=== PATIENT | female | born 1930 | race Caucasian/White ===

== ENCOUNTER → 2017-06-07 | Outpatient (CLI) | payer MEDICARE ==
[2017-06-07 13:02] LABS: Blood Urea Nitrogen 27 mg/dL (7-17)
--- NOTE | 2017-06-07 13:04 | XR ---
EXAMINATION TYPE: XR chest 2V DATE OF EXAM: 06/07/2017 COMPARISON: NONE HISTORY: Diverticulitis per order. History of hiatal hernia surgery. TECHNIQUE: Frontal and lateral views of the chest are obtained. FINDINGS: There is chronic parenchymal change without suspicious focal air space opacity, pleural ef fusion, or pneumothorax seen. The cardiac silhouette size is upper limits of normal with atheroscler otic aorta. The osseous structures are demineralized. S-shaped scoliosis is present. Surgical clips near gastroesophageal junction are present. IMPRESSION: Chronic parenchymal changes without acute pulmonary process.
--- NOTE | 2017-06-07 15:26 | CT ---
EXAMINATION TYPE: CT abdomen pelvis w con DATE OF EXAM: 06/07/2017 COMPARISON: NONE INDICATION: Productive cough, mid abdominal pain. DLP: 1260 mGycm, Automated exposure control for dose reduction was used. CONTRAST: 80 mL of Visipaque 320. Study performed with Oral Contrast TECHNIQUE: Axial images were obtained from above the diaphragm to the pubic rami in the axial plane a t 5 mm thick sections. Reconstructed images are reviewed on the computer in the coronal plane. FINDINGS: Limited CT sections are obtained the lung bases. The lung bases are clear. Some minimal pulmonary f ibrosis appears to be within the dependent portions of the lungs. CT ABDOMEN: Moderate size hiatal hernia is present. Appears to be a prior Ahmet fundoplication. Liver: Normal Spleen: Normal Pancreas: Normal Adrenal glands: The adrenal glands are normal. Gallbladder: Normal Kidneys: No masses are evident. No hydronephrosis is present. No cysts are present. Delayed images were obtained through the kidneys, which remain unremarkable. Aorta: Vascular calcification is within the aorta. Inferior vena cava: Normal. CT PELVIS: Loops of bowel within the abdomen and pelvis are normal. There are loops of bowel which are incom pletely distended or lack oral contrast limiting their evaluation. Appendix: Not identified. No suspicious inflammatory changes are evident. Urinary bladder: Normal. Genitourinary structures: Adnexa are imaged. The uterus is visualized is normal. Osseous structures: No suspicious lytic or sclerotic lesions. Facet changes are within the lumbar spi ne. IMPRESSIONS: 1. No suspicious acute changes CT abdomen pelvis. 2. Prior gastric surgery, likely Ahmet fundoplication. 3. Scoliosis with degenerative disc changes.
== END | disposition home or self-care (01) ==
LOC: RADCTMAIN 12:05
PROVIDERS: ATTEND Surgery Plastic and Reconstructive Surgery
DX: J98.4 Other disorders of lung (principal); R13.10 Dysphagia, unspecified; Z98.84 Bariatric surgery status
CPT/HCPCS: 82565; 84520; 71046; 74177; 36415; Q9967

== ENCOUNTER 2017-06-13 08:12 | Day surgery (SDC) | payer MEDICARE ==
[2017-06-08 16:16] VITALS: BMI 28.2
--- NOTE | 2017-06-13 07:40 | P.GSHP ---
History of Present Illness H&P Date: 06/13/17 CHIEF COMPLAINT: GERD HISTORY OF PRESENT ILLNESS: The patient is a 86-year-old female who presents reports gastroesophageal reflux disease. Upper endoscopy was offered for further evaluation and management. PAST MEDICAL HISTORY: Please see list. PAST SURGICAL HISTORY: Please see list. MEDICATIONS: Please see list. ALLERGIES: Please see list. SOCIAL HISTORY: No illicit drug use FAMILY HISTORY: No reports of Crohn disease or ulcerative colitis. REVIEW OF ORGAN SYSTEMS: CONSTITUTIONAL: No reports of fevers or chills. GI: Denies any blood in stools or constipation. PHYSICAL EXAM: VITAL SIGNS: Stable GENERAL: Well-developed and pleasant in no acute distress. HEENT: No scleral icterus. Extraocular movements grossly intact. Moist buccal mucosa. NECK: Supple without lymphadenopathy. CHEST: Unlabored respirations. Equal bilateral excursions. CARDIOVASCULAR: Regular rate and rhythm. Distal 2+ pulses. ABDOMEN: Soft, nondistended. MUSCULOSKELETAL: No clubbing, cyanosis, or edema. ASSESSMENT: 1. Gastroesophageal reflux disease PLAN: 1. 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 [place], hx vertigo, History of Any Multi-Drug Resistant Organisms: None Reported Past Surgical History: Section, Tubal Ligation Additional Past Surgical History / Comment(s): hiatal hernia repair, grisel cataract sx, EGD Past Anesthesia/Blood Transfusion Reactions: No Reported Reaction Smoking Status: Never smoker - Past Family History Mother Family Medical History: Cancer Medications and Allergies Home Medications Medication Instructions Recorded Confirmed Type Acetaminophen [Tylenol Extra 500 mg PO DAILY 06/08/17 06/08/17 History Strength] Aspirin [Adult Low Dose Aspirin EC] 81 mg PO DAILY 06/08/17 06/08/17 History Atorvastatin [Lipitor] 10 mg PO DAILY 06/08/17 06/08/17 History B Complex & C No.20/Folic Acid 1 mg PO DAILY 06/08/17 06/08/17 History [Nephrocaps Softgel] Captopril [Capoten] 100 mg PO AC-BID 06/08/17 06/08/17 History Colon Health 1 tab PO DAILY 06/08/17 History Donepezil HCl [Aricept] 5 mg PO DAILY 06/08/17 06/08/17 History Etodolac [Lodine] 500 mg PO DAILY 06/08/17 06/08/17 History Famotidine [Pepcid] 20 mg PO BID 06/08/17 06/08/17 History Krill Oil 500 mg PO DAILY 06/08/17 06/08/17 History Loratadine [Claritin] 10 mg PO DAILY 06/08/17 06/08/17 History Meclizine [Antivert] 25 mg PO DAILY 06/08/17 06/08/17 History Milk Thistle 175 mg PO DAILY 06/08/17 06/08/17 History Multivitamins, Thera [Multivitamin 1 tab PO DAILY 06/08/17 06/08/17 History (formulary)] Omeprazole [PriLOSEC] 40 mg PO QAM 06/08/17 06/08/17 History Sertraline [Zoloft] 100 mg PO DAILY 06/08/17 06/08/17 History amLODIPine [Norvasc] 10 mg PO DAILY 06/08/17 06/08/17 History levETIRAcetam [Keppra] 500 mg PO Q12HR 06/08/17 06/08/17 History Allergies Allergy/AdvReac Type Severity Reaction Status Date / Time clindamycin Allergy dizzyness Verified 06/08/17 16:05 Penicillins Allergy Unknown Verified 06/08/17 16:05 procaine [From Novocain] Allergy dizzyness Verified 06/08/17 16:05 that lasted days Sulfa (Sulfonamide Allergy Unknown Verified 06/08/17 16:05 Antibiotics)
[~2017-06-13 08:12] MED LIST: LACTATED RINGERS 1,000 ML IV SCH
[2017-06-13] MEDS ORDERED: LACTATED RINGERS 1,000 ML IV ONE (08:27)
[2017-06-13 08:47] VITALS: RESP 18; TEMP 98
[2017-06-13] MEDS ORDERED: PROPOFOL 10 MG/ML 20 ML VIAL IV ONE (09:01)
--- NOTE | 2017-06-13 09:15 | P.PCN ---
Date of Procedure: 06/13/17 Description of Procedure: PREOPERATIVE DIAGNOSIS: Gastroesophageal reflux disease. History of fundoplasty. POSTOPERATIVE DIAGNOSIS: Gastroesophageal reflux disease. History of fundoplasty. Gastritis. Gastroesophageal reflux disease. Diaphragmatic hiatal hernia without obstruction, recurrent and incarcerated. OPERATION: Esophagogastroduodenoscopy with biopsies along antrum. SURGEON: Alisa Rosario MD ANESTHESIA: MAC. INDICATIONS: The patient is a 86-year-old female who presents with a history of reflux disease. Benefits and risks of the procedure were described. Informed consent was obtained. DESCRIPTION: The patient was brought into the endoscopy suite and laid in the left lateral decubitus position. An Olympus gastroscope was passed along the posterior oropharynx down to the distal esophagus where the squamocolumnar junction was encountered at 30 cm from the incisors. The stomach was entered and no bile reflux was found. Additional findings are listed below. Biopsies with cold forceps were obtained of the antrum. The first through third portion of the duodenum was examined and unremarkable. Retroflexion of the scope confirmed Hill grade 4 lower esophageal valve as previous transendoscopic fundoplasty sutures were identified. The squamocolumnar junction demostrated LA grade B erosive esophagitis. The stomach was desufflated. The patient tolerated the procedure well. FINDINGS: Squamocolumnar junction 30 cm from the incisors. Diaphragmatic hiatus at 40 cm. Hiatal hernia 10 cm. Hill grade 4 lower esophageal valve. LA grade B erosive esophagitis. No active duodenitis. Diffuse gastritis. RECOMMENDATIONS: Continue medical therapy. Further recommendations pending results of pathology report. Upper endoscopy as needed. Will benefit from antireflux surgical procedure Plan - Discharge Summary New Discharge Prescriptions: No Action Multivitamins, Thera [Multivitamin (formulary)] 1 tab PO DAILY Famotidine [Pepcid] 20 mg PO BID Atorvastatin [Lipitor] 10 mg PO DAILY amLODIPine [Norvasc] 10 mg PO DAILY Sertraline [Zoloft] 100 mg PO DAILY Captopril [Capoten] 100 mg PO AC-BID levETIRAcetam [Keppra] 500 mg PO Q12HR Omeprazole [PriLOSEC] 40 mg PO QAM Milk Thistle 175 mg PO DAILY Meclizine [Antivert] 25 mg PO DAILY Loratadine [Claritin] 10 mg PO DAILY Krill Oil 500 mg PO DAILY Etodolac [Lodine] 500 mg PO DAILY Donepezil HCl [Aricept] 5 mg PO DAILY Colon Health 1 tab PO DAILY B Complex & C No.20/Folic Acid [Nephrocaps Softgel] 1 mg PO DAILY Aspirin [Adult Low Dose Aspirin EC] 81 mg PO DAILY Acetaminophen [Tylenol Extra Strength] 500 mg PO DAILY Discharge Medication List Acetaminophen [Tylenol Extra Strength] 500 mg PO DAILY 06/08/17 [History] Aspirin [Adult Low Dose Aspirin EC] 81 mg PO DAILY 06/08/17 [History] Atorvastatin [Lipitor] 10 mg PO DAILY 06/08/17 [History] B Complex & C No.20/Folic Acid [Nephrocaps Softgel] 1 mg PO DAILY 06/08/17 [ History] Captopril [Capoten] 100 mg PO AC-BID 06/08/17 [History] Colon Health 1 tab PO DAILY 06/08/17 [History] Donepezil HCl [Aricept] 5 mg PO DAILY 06/08/17 [History] Etodolac [Lodine] 500 mg PO DAILY 06/08/17 [History] Famotidine [Pepcid] 20 mg PO BID 06/08/17 [History] Krill Oil 500 mg PO DAILY 06/08/17 [History] Loratadine [Claritin] 10 mg PO DAILY 06/08/17 [History] Meclizine [Antivert] 25 mg PO DAILY 06/08/17 [History] Milk Thistle 175 mg PO DAILY 06/08/17 [History] Multivitamins, Thera [Multivitamin (formulary)] 1 tab PO DAILY 06/08/17 [History ] Omeprazole [PriLOSEC] 40 mg PO QAM 06/08/17 [History] Sertraline [Zoloft] 100 mg PO DAILY 06/08/17 [History] amLODIPine [Norvasc] 10 mg PO DAILY 06/08/17 [History] levETIRAcetam [Keppra] 500 mg PO Q12HR 06/08/17 [History]
[2017-06-13 09:27] VITALS: BP 128/74; PULSE 74
== END 2017-06-13 10:03 | disposition home or self-care (01) ==
LOC: ORWHC2ENDO 08:12
PROVIDERS: ATTEND Surgery Plastic and Reconstructive Surgery
DX: K29.50 Unspecified chronic gastritis without bleeding (principal); K21.0 Gastro-esophageal reflux disease with esophagitis; K44.9 Diaphragmatic hernia without obstruction or gangrene; Z98.890 Other specified postprocedural states; I69.311 Memory deficit following cerebral infarction; I10 Essential (primary) hypertension; E78.5 Hyperlipidemia, unspecified; F32.9 Major depressive disorder, single episode, unspecified; F03.90 Unspecified dementia, unspecified severity, without behavioral disturbance, psychotic disturbance, mood disturbance, and anxiety; Z85.828 Personal history of other malignant neoplasm of skin; I25.2 Old myocardial infarction; Z98.51 Tubal ligation status; Z79.82 Long term (current) use of aspirin; Z79.899 Other long term (current) drug therapy; Z88.4 Allergy status to anesthetic agent; Z88.1 Allergy status to other antibiotic agents; Z88.0 Allergy status to penicillin; Z88.2 Allergy status to sulfonamides
CPT/HCPCS: 88305; 43239; J2704

== ENCOUNTER → 2017-07-24 | Outpatient (CLI) | payer MEDICARE ==
[2017-07-24 16:06] LABS: Basophils % (A) 0 %; Eosinophils # (A) 0.2 k/uL (0-0.7); Eosinophils % (A) 2 %; HCT 41.2 % (34.0-46.0); HGB 12.8 gm/dL (11.4-16.0); Lymphocytes # (A) 1.6 k/uL (1.0-4.8); Lymphocytes % (A) 19 %; MCH 29.2 pg (25.0-35.0); MCHC 31.1 g/dL (31.0-37.0); MCV 93.7 fL (80.0-100.0); Mean Platelet Volume 6.9; Monocytes # (A) 0.5 k/uL (0-1.0); Monocytes % (A) 6 %; Neutrophils # (A) 5.7 k/uL (1.3-7.7); Neutrophils % (A) 71 %; Platelet Count 291 k/uL (150-450); WBC 8.1 k/uL (3.8-10.6)
[2017-07-24 16:20] LABS: Albumin 4.3 g/dL (3.5-5.0); Potassium 4.6 mmol/L (3.5-5.1); Total Bilirubin 0.4 mg/dL (0.2-1.3); Total Protein 7.5 g/dL (6.3-8.2)
== END | disposition home or self-care (01) ==
LOC: LABPAT 15:33
PROVIDERS: ATTEND Surgery Plastic and Reconstructive Surgery
DX: Z01.812 Encounter for preprocedural laboratory examination (principal); K44.0 Diaphragmatic hernia with obstruction, without gangrene
CPT/HCPCS: 36415; 80053; 85025

== ENCOUNTER 2017-07-27 06:06 | Inpatient (IN) | payer MEDICARE ==
[2017-07-19 10:52] VITALS: BMI 26.9
--- NOTE | 2017-07-26 17:27 | P.GSHP ---
History of Present Illness H&P Date: 07/27/17 CHIEF COMPLAINT: History of chronic abdominal pain. HISTORY OF PRESENT ILLNESS: Va Morrison is a 86-year-old female who comes in with recurrent diaphragmatic hiatal hernia including intractable nausea and vomiting, and epigastric abdominal pain. She previously had a thoracic approach hiatal hernia repair, now with complete recurrence. She has chronic dysphagia to foods. She had completed an upper endoscopy including a CT scan. She now presents for further evaluation and management. Her daughter is at bedside, who reports that since her last visit a month ago her condition is declining. Separately, she had just completed seeing the patrol supervisor. PAST MEDICAL HISTORY: Please see list. PAST SURGICAL HISTORY: Please see list. MEDICATIONS: Please see list. ALLERGIES: Please see list. SOCIAL HISTORY: No illicit drug use FAMILY HISTORY: No reports of Crohn disease or ulcerative colitis. REVIEW OF ORGAN SYSTEMS: Neurological: Previous history of stroke. Baseline dementia. Has seizure disorder. CONSTITUTIONAL: No fevers or chills. HEENT: Denies any trouble with vision, hearing or nosebleeds. Has difficulty swallowing. Has vertigo LYMPHATIC: The patient denies any lumps and bumps around the neck. ENDOCRINE: Denies any thyroid disorders. Denies any blood sugar glucose intolerance. RESPIRATORY: Denies pneumonia. Denies any troubles with breathing or dyspnea on exertion. CARDIOVASCULAR: Denies any chest pain, palpitations, or recent heart attacks. GASTROINTESTINAL: Denies fatty food intolerance. Denies change in bowel habits and gas bloat. Has GERD. GENITOURINARY: Denies any blood in urine or increased urinary frequency. MUSCULOSKELETAL: Denies any back pain, stiffness or joint arthritis. PSYCHIATRIC: Denies any depression or suicidal ideation. Has dementia. HEMATOLOGIC: Denies any abnormal bleeding or bruising. BREASTS: Denies any breast lumps, pain or nipple discharge. SKIN: No current skin cancer. No rash. PHYSICAL EXAM: Patient is an 86-year-old female. GENERAL: Well developed and in no acute distress. Pleasant. HEENT: No sclera icterus. Extraocular movements grossly intact. Moist buccal mucosa. Head is atraumatic, normocephalic. Hears conversational speech. No nasal drainage. NECK: Supple without lymphadenopathy. No JV distention. CHEST: Non-labored respirations and equal bilateral excursions. CARDIOVASCULAR: Regular rate and rhythm. Palpable 2+ radial pulses. ABDOMEN: Soft. Nondistended. Tenderness along the left lower quadrant, including epigastrium. MUSCULOSKELETAL: No clubbing, cyanosis or edema. NEUROLOGIC: No focal or lateralizing signs. PSYCH: Appropriate affect. Alert and oriented to person, place and time. SKIN: Well perfused. Good skin turgor. STUDIES: CT of the abdomen/pelvis was reviewed in detail with the patient and her family , which demonstrated recurrent large diaphragmatic hiatal hernia incarcerated along the mediastinum. Separately, a umbilical hernia was also identified including left inguinal lipoma. Moderate stool burden was identified. This is my own personal interpretation, as her studies were reviewed in detail. Questionable gallstones were identified as well. Upper endoscopy was also reviewed and was consistent with a 10 cm recurrent diaphragmatic hiatal hernia Hill grade 4 lower esophageal valve. ASSESSMENT: 1. Recurrent incarcerated diaphragmatic hiatal hernia. 2. Intractable nausea and vomiting. 3. Dysphagia. 4. Chronic abdominal pain. 5. Left quadrant abdominal pain. 6. Chronic constipation. PLAN: 1. She completed a manometry. 2. As this is a revision, including take down from a previous thoracotomy, risks of esophageal lengthening, gastrostomy, and gastrectomy were also reviewed in detail along side with the patient and her daughter. 3. Easily, this procedure may take 6+ hours, and as a result a medical consultation as well as complete medical and cardiac clearance were done. 4. Pre-operative Calos diet, which can be started right now, was written and given to her to help with her overall symptoms with dysphagia and vomiting. 5. Inpatient hospitalization more than 2 nights. 6. DVT prophylaxis 7. Antibiotic prophylaxis 8. 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 [place], hx vertigo,scoliosis History of Any Multi-Drug Resistant Organisms: None Reported Past Surgical History: Section, Tubal Ligation Additional Past Surgical History / Comment(s): hiatal hernia repair, grisel cataract sx, EGD,inguinal hernia repair Past Anesthesia/Blood Transfusion Reactions: No Reported Reaction Additional Past Anesthesia/Blood Transfusion Reaction / Comment(s): no hx blood transfusion Past Psychological History: Anxiety, Depression Additional Psychological History / Comment(s): dementia Smoking Status: Never smoker Past Alcohol Use History: None Reported Past Drug Use History: None Reported - Past Family History Mother Family Medical History: Cancer Medications and Allergies Home Medications Medication Instructions Recorded Confirmed Type Acetaminophen [Tylenol Extra 500 mg PO BID 06/08/17 07/19/17 History Strength] Aspirin [Adult Low Dose Aspirin EC] 81 mg PO DAILY 06/08/17 07/19/17 History Atorvastatin [Lipitor] 10 mg PO DAILY 06/08/17 07/19/17 History B Complex & C No.20/Folic Acid 1 mg PO DAILY 06/08/17 07/19/17 History [Nephrocaps Softgel] Captopril [Capoten] 50 mg PO AC-BID 06/08/17 07/19/17 History Colon Health 1 tab PO DAILY 06/08/17 07/19/17 History Donepezil HCl [Aricept] 5 mg PO DAILY 06/08/17 07/19/17 History Etodolac [Lodine] 500 mg PO DAILY 06/08/17 07/19/17 History Famotidine [Pepcid] 20 mg PO 1600,2100 06/08/17 07/19/17 History Krill Oil 500 mg PO DAILY 06/08/17 07/19/17 History Loratadine [Claritin] 10 mg PO DAILY 06/08/17 07/19/17 History Meclizine [Antivert] 25 mg PO DAILY 06/08/17 07/19/17 History Milk Thistle 175 mg PO DAILY 06/08/17 07/19/17 History Multivitamins, Thera [Multivitamin 1 tab PO DAILY 06/08/17 07/19/17 History (formulary)] Omeprazole [PriLOSEC] 40 mg PO QAM 06/08/17 07/19/17 History Sertraline [Zoloft] 100 mg PO QAM 06/08/17 07/19/17 History amLODIPine [Norvasc] 10 mg PO QAM 06/08/17 07/19/17 History levETIRAcetam [Keppra] 500 mg PO Q12HR 06/08/17 07/19/17 History Allergies Allergy/AdvReac Type Severity Reaction Status Date / Time clindamycin Allergy SOB,dizzyne Verified 07/19/17 10:26 ss Penicillins Allergy SOB Verified 07/19/17 10:26 procaine [From Novocain] Allergy SOB,dizzyness Verified 07/19/17 10:26 that lasted days Sulfa (Sulfonamide Allergy SOB Verified 07/19/17 10:26 Antibiotics)
[~2017-07-27 06:06] MED LIST changes: +ACETAMINOPHEN IVPB ONE; +DEXAMETHASONE SOD PHOSPHATE 10 MG/ML 1 ML VIAL IV ONE; +HEPARIN SODIUM,PORCINE 5,000 UNIT/ML 1 ML VIAL SQ ONE; -LACTATED RINGERS 1,000 ML IV SCH; +MIDAZOLAM 2 MG/2 ML VIAL IV PRN; +ONDANSETRON 4 MG/2 ML VIAL IVP ONE; +ceFAZolin 2 GM in SODIUM CHLORIDE 0.9% 100 ML IVPB ONE; +ceFAZolin IN SWFI 2 GM/20 ML SYRINGE IVP ONE; +metroNIDAZOLE-NS PMX 500 MG in SALINE 1 100ML.BAG IVPB ONE
[2017-07-27] MEDS: LACTATED RINGERS 1,000 ML IV SCH ×2 (07:22→07:25)
[2017-07-27] MEDS ORDERED: LIDOCAINE 1% 20 ML VIAL (10MG/ML) FOR IV START INTRADERMA ONE (07:22)
[2017-07-27] MEDS ORDERED: BUPIVACAINE (PF) 0.25% 30 ML VIAL SQ ONE (07:42)
[2017-07-27] MEDS ORDERED: LACTATED RINGERS 1,000 ML IV ONE (11:28)
[2017-07-27] MEDS ORDERED: ONDANSETRON 4 MG/2 ML VIAL IVP PRN (14:28)
[2017-07-27] MEDS ORDERED: NALOXONE 0.4 MG/ML 1 ML VIAL IV PRN (14:28)
[2017-07-27] MEDS ORDERED: diphenhydrAMINE 50 MG/ML 1 ML VIAL IVP PRN (14:28)
[2017-07-27] MEDS ORDERED: ACETAMINOPHEN IVPB ONE (14:28)
[2017-07-27] MEDS: fentaNYL (PF) 50 MCG/ML 2 ML AMP IV PRN ×3 (14:33→15:24)
--- NOTE | 2017-07-27 15:23 | P.PCN ---
Date of Procedure: 07/27/17 Preoperative Diagnosis: Recurrent paraesophageal hiatal hernia, dysphagia, epigastric pain, intractable nausea and vomiting, weakness, anemia Postoperative Diagnosis: Same, recurrent incarcerated paraesophageal diaphragmatic hiatal hernia 8 x 4 cm , Reyna's esophagus, gastric diverticulum along gastric cardia Procedure(s) Performed: 1. Robotic-assisted takedown of incarcerated recurrent paraesophageal hiatal hernia along the mediastinum using robotic stapler green load 2. Robotic-assisted extensive lysis of adhesions over 4 hours perigastric adhesions including mediastinal adhesions 3. Robotic-assisted recurrent incarcerated midline diaphragmatic hiatal hernia 8 x 5 centimeters using [place] Biopatch A 8 x 8 cm mesh and pledgeted repair 4. Intraoperative esophagogastroduodenoscopy Anesthesia: GETA, local Surgeon: Alisa Rosario Estimated Blood Loss (ml): 100 Pathology: none sent Condition: stable Disposition: floor Operative Findings: 1. Recurrent incarcerated paraesophageal midline diaphragmatic hiatal hernia extending into the mid mediastinum
[2017-07-27] MEDS: ALBUTEROL NEBULIZED 2.5 MG/3 ML INHALATION SCH ×2 (15:55→20:20)
[2017-07-27] MEDS: ceFAZolin 1,000 MG in DEXTROSE/WATER 1 50ML.BAG IVPB SCH (17:38)
[2017-07-27] MEDS: SIMETHICONE 40 MG/0.6 ML DROPS 2,000 MG/30 ML BOTTLE PO SCH (18:13)
[2017-07-27] MEDS: HYOSCYAMINE ORAL DROPS 1.875 MG/15 ML BOTTLE PO SCH (18:14)
[2017-07-27] MEDS: MORPHINE SULFATE/PF 10MG/10ML VL IVP PRN (18:19)
[2017-07-27] MEDS: CAPTOPRIL 50 MG TAB PO SCH (18:26)
[2017-07-27] MEDS: DEXAMETHASONE SOD PHOSPHATE 4 MG/ML 1 ML VIAL IV SCH (19:29)
[2017-07-27] MEDS: levETIRAcetam 500 MG TAB PO SCH (20:37)
[2017-07-27] MEDS: 0.9% NACL WITH KCL 20 MEQ/L 1,000 ML IV SCH (20:38)
--- NOTE | 2017-07-27 21:17 | P.OP ---
Date of Procedure: 07/27/17 Description of Procedure: Date of Procedure: 07/27/17 DESCRIPTION OF PROCEDURE(S): SURGEON: CLAUDIA GORE MD SUPERVISOR SOLDERING: 1. Wendy Alas PREOPERATIVE DIAGNOSES: 1. Gastroesophageal reflux disease. 2. Paraesophageal hiatal hernia, midline, recurrent 3. History of previous Calos fundoplasty 4. Seizure disorder 5. Alzheimer's dementia 6. Depression 7. Vertigo 8. Dysphagia 9. Ineffective esophageal motility 10. Epigastric abdominal pain 11. Intractable nausea and vomiting 12. Weakness 13. Iron deficiency anemia 14. Hyperlipidemia 15. Diffuse osteoarthritis 16. Hypertensive heart disease POSTOPERATIVE DIAGNOSES: 1. Gastroesophageal reflux disease. 2. Paraesophageal incarcerated hiatal hernia, midline, recurrent, 8 x 5 cm 3. History of previous Calos fundoplasty 4. Seizure disorder 5. Alzheimer's dementia 6. Depression 7. Vertigo 8. Dysphagia 9. Ineffective esophageal motility 10. Epigastric abdominal pain 11. Intractable nausea and vomiting 12. Weakness 13. Iron deficiency anemia 14. Hyperlipidemia 15. Diffuse osteoarthritis 16. Hypertensive heart disease 17. 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 Peritoneal adhesions left lower quadrant from previous inguinal hernia repair OPERATION: 1. Robotic-assisted da Elisabeth Xi laparoscopic takedown of Calos fundoplasty from incarcerated recurrent paraesophageal hiatal hernia along the mediastinum using robotic stapler green load 2. Robotic-assisted da Elisabeth Xi laparoscopic extensive lysis of adhesions over 4 hours for perigastric adhesions including mediastinal adhesions 3. Robotic-assisted da Elisabeth Xi laparoscopic reduction and repair of recurrent incarcerated midline paraesophageal hiatal hernia, 8 x 5 cm, with [place] Bi[employer]atch A 8 x 8 cm and pledgeted repair 4. Intraoperative esophagogastroduodenoscopy ANESTHESIA: General with local anesthetic. ESTIMATED BLOOD LOSS: 100 mL SPECIMENS REMOVED: None. COMPLICATIONS: None. Condition: stable Disposition: floor FINDINGS: 1. Thoracic length 16.5 cm. 2. Slipped Calos fundoplasty 3. Incarcerated upper pole of the stomach deep into mediastinum from previous thoracic approach hiatal hernia. 4. Paraesophageal incarcerated recurrent diaphragmatic hiatal hernia 8 cm axial length by 5 cm width, with moderate dissection into the mediastinum. 5. [place] Bi[employer]atch A onlay mesh placed with pledgeted repair along the right and left sylvain including anterior hiatal hernia repair reinforcement 6. Fundoplasty taken down using 45 mm green load 7. Gastric diverticulum identified along cardiac 8. Squamocolumnar junction obliterated to 30 cm from over 3 cm segment of Reyna's esophagus 9. Negative leak test 10. Retained large hiatal hernia sac identified from index operation from thoracic approach hiatal herna incised and resected to prevent recurrence. 11. More than 3 cm intra-abdominal esophageal length INDICATIONS: The patient is a 86-year-old female who presents with epigastric abdominal pain including gastroesophageal reflux and a symptomatic recurrent diaphragmatic hiatal hernia performed over 5 years ago at [facility] via a left thoracotomy approach. Preoperative workup including upper endoscopy demonstrated recurrent hiatal hernia and slipped Calos fundoplasty. She completed an esophageal manometry demonstrating reflux. Given the severity of her symptoms , particularly of her symptomatic diaphragmatic hiatal hernia, she had elected for surgical intervention. Benefits and risks including bleeding, infection, recurrence, dysphagia, injury to the lung, injury to the esophagus, leaks, need for further surgery was described at length. Informed consent was obtained. DESCRIPTION: The patient was brought into the operating room and placed in supine position. Preoperatively she had received heparin subcutaneously for DVT prophylaxis. After general induction, the abdomen was prepped and draped in standard sterile fashion. A Sandhu catheter was placed. Ioban draping was placed along the abdomen. A timeout protocol was confirmed with the surgical team, for which the patient's name, procedure to be performed including DVT prophylaxis with bilateral SCDs, and preoperative antibiotics were also confirmed. Robotic da Elisabeth Xi system was prepped and primed. At 12 cm from the xiphoid to just below the umbilicus, proposed port sites were marked with indelible marker along the left axillary line, left mid-clavicular line with each ports were marked 10 cm from each other. A 5 mm 0 degrees laparoscopic trocar entry was performed along the left upper quadrant. The abdomen was insufflated to 15 mmHg pressure he tolerated well. Diagnostic laparoscopy demonstrated no injury to bowel, viscera, or mesentery. The gallbladder was unremarkable. The liver surface was unremarkable. Adhesions were identified along the left lower quadrant involving greater omentum to the abdominal wall. No injury had occurred to the small bowel or viscera. Along the hiatus, moderate perigastric adhesions were found from her previous fundoplasty. Next, one 8 mm robotic port was placed along the right upper abdomen. An 8-mm port was were placed along the left lateral abdominal wall. The camera 8-mm port was maintained along the epigastrium via the hernia defect. A 12 mm port was placed along the left upper abdominal wall after exchanging the 5 mm port. Please note that the ports were placed at least 20 cm away from the target anatomy. Care was taken to check that each robotic arm were safely away from collision with the bed or the patient. At the epigastrium, a medium sized Artis liver retractor was placed under direct visualization with the Iron Ice Bag Assembler placed over the right shoulder of the patient. The additional third robotic arm was used. The patient was repositioned in reverse Trendelenburg position at 14-degrees after lowering the bed. The robot was docked above the left side of the patient. Using a grasper for arm 3, a grasper for arm 1, including vessel sealer for arm 4, the robotic system was docked and primed as described. Instruments were interchanged by the commercial lines assistant. I had sat at the console. The distal esophagus was mobilized carefully and circumferentially. Care was taken to avoid any injury to the bilateral vagi nerves. An incarcerated hiatal hernia with a retained sac was found along the mediastinum and retracted into the abdominal cavity. Next dissection into the mediastinum to the level of the azygos vein was performed to the mid to proximal esophagus. The left and right crura was identified. The hiatal hernia sac was incarcerated into the mediastinum and divided to allow complete mobilization and freeing of the mid to distal esophagus into the abdominal cavity. Fundoplasty was well-fused. Hence, the fundoplasty was dissected away from the esophagus and divided using 45 mm green loads. Additionally, the distal stomach was also mobilized off the retroperitoneum to allow for mobilization of the stomach. Care was taken to avoid any gastrotomy to the incarcerated upper pole of the stomach including takedown of the Calos fundoplasty. Extensive lysis of adhesions went more than 4 hours for extended dissection of the adherent stomach and mediastinal hernia sac. The measured defect was consistent with 8 cm axial length and 4 cm in width. The distal esophagus of at least 2 cm was brought into the abdominal cavity. The diaphragmatic hiatus was weak and attenuated. As a result, a pledgeted repair was proposed. Once the hiatus and crura was dissected, the [place] [employer]atch A mesh was cut into long slivers to reinforce the left and right sylvain and fixed to the crura individually with 2-0 VLOC. Care was taken to avoid overlap of the pledgets onto the esophagus. As the crura was reinforced with pledgets, 2-0 VLOC suture was placed as a running vertical buttress suture to re-approximate the diaphragmatic hiatus anteriorly. To buttress the repair, a [place] [employer]atch A was prepared along the back table and cut in a vidales-hole fashion as to reinforce the repair as an overlay. The mesh was tagged using horizontal mattress sutures using 2-0 VLOC. A repeat Calos fundoplasty was avoided as the patient developed esophagogastric junction obstruction as found on her manometry. I went to the head of the bed to perform intraoperative esophagogastroduodenoscopy. An Olympus gastroscope was passed through posterior oropharynx, where the GE junction was found distal to the diaphragmatic hiatus. Additionally, Reyna's esophagus was confirmed starting from 30 cm from the incisors to the esophagus distally. The intra- abdominal esophageal length obtained was over 3 cm. The stomach was entered. The duodenum was unremarkable. Retroflexion of the scope confirmed a Hill grade 1+ lower esophageal valve including gastric diverticulum of the gastric cardia. The stomach had been desufflated. No evidence of leaks were found or mucosal defects of the esophagus or stomach. This concluded the endoscopic portion of the case. The robot was undocked from the patient. I re-scrubbed into the case. All instruments and pneumoperitoneum were evacuated from the abdominal cavity. Incisions were reapproximated using 4-0 Monocryl in an interrupted subcuticular fashion. All incisions were cleaned using dilute hydrogen peroxide. The 12-mm port site fascial defect was less than 8 mm in size. Dermabond was applied to the skin. Local anesthetic was infiltrated in all wounds for postop analgesia. Multiple intra-abdominal films were obtained. At the end of the procedure, needle, sponge, and instrument count was verified correct by the photo lab technician. The patient had tolerated the procedure well and was taken to the postanesthesia unit in stable condition. Intraoperative films were reviewed with the patient's family who were pleased with the level of care. Console time 295 minutes.
[2017-07-28] MEDS: ceFAZolin 1,000 MG in DEXTROSE/WATER 1 50ML.BAG IVPB SCH (01:16)
[2017-07-28] MEDS: MORPHINE SULFATE/PF 10MG/10ML VL IVP PRN ×4 (01:17→19:58)
[2017-07-28] MEDS: DEXAMETHASONE SOD PHOSPHATE 4 MG/ML 1 ML VIAL IV SCH ×3 (01:17→16:51)
[2017-07-28] MEDS: HYOSCYAMINE ORAL DROPS 1.875 MG/15 ML BOTTLE PO SCH ×4 (01:18→19:57)
[2017-07-28] MEDS: SIMETHICONE 40 MG/0.6 ML DROPS 2,000 MG/30 ML BOTTLE PO SCH ×4 (01:20→19:57)
[2017-07-28] MEDS: 0.9% NACL WITH KCL 20 MEQ/L 1,000 ML IV SCH ×3 (04:57→22:45)
[2017-07-28 07:16] LABS: Basophils % (A) 0 %; Eosinophils % (A) 0 %; HCT 34.3 % (34.0-46.0); Lymphocytes # (A) 0.5 k/uL (1.0-4.8); Lymphocytes % (A) 5 %; MCH 30.1 pg (25.0-35.0); MCHC 31.9 g/dL (31.0-37.0); MCV 94.3 fL (80.0-100.0); Mean Platelet Volume 6.9; Monocytes # (A) 0.5 k/uL (0-1.0); Monocytes % (A) 4 %; Neutrophils # (A) 9.5 k/uL (1.3-7.7); Neutrophils % (A) 90 %; Platelet Count 241 k/uL (150-450); RBC 3.64 m/uL (3.80-5.40); RDW 13.1 % (11.5-15.5); WBC 10.5 k/uL (3.8-10.6)
[2017-07-28 07:34] LABS: Calcium 8.6 mg/dL (8.4-10.2); Magnesium 1.6 mg/dL (1.6-2.3); Phosphorus 4.2 mg/dL (2.5-4.5); Potassium 4.6 mmol/L (3.5-5.1)
--- NOTE | 2017-07-28 08:48 | FL ---
EXAMINATION TYPE: FL UGI DATE OF EXAM ORDERED: 07/28/2017 8:34 AM HISTORY: Postop hiatal hernia repair. COMPARISON: None. FINDINGS: The patient aspirated a large volume of contrast on the first swallow. For this reason the examination was terminated. IMPRESSION: GROSS ASPIRATION. CONSIDER A MODIFIED BARIUM SWALLOW.
[2017-07-28] MEDS: ALBUTEROL NEBULIZED 2.5 MG/3 ML INHALATION SCH ×4 (09:02→20:21)
[2017-07-28 11:47] LABS: Iron Saturation 5.61 (12.00-45.00)
[2017-07-28] MEDS ORDERED: DEXAMETHASONE SOD PHOSPHATE 10 MG/ML 1 ML VIAL IV STA (13:13)
[2017-07-28] MEDS: CAPTOPRIL 50 MG TAB PO SCH ×2 (15:28→19:40)
[2017-07-28] MEDS: ASPIRIN 81 MG PO SCH (15:29)
[2017-07-28] MEDS: DONEPEZIL 5 MG TAB PO SCH (15:29)
[2017-07-28] MEDS: amLODIPine 10 MG TAB PO SCH (15:29)
[2017-07-28] MEDS: levETIRAcetam 500 MG TAB PO SCH ×2 (15:30→19:57)
[2017-07-28] MEDS: PANTOPRAZOLE 40 MG/10 ML VIAL IV SCH (15:37)
[2017-07-28] MEDS: ENOXAPARIN 30 MG/0.3 ML SYRINGE SQ SCH (15:37)
[2017-07-28] MEDS: MAGNESIUM SULFATE-D5W PMX 1 GM in DEXTROSE/WATER 1 100ML.BAG IVPB SCH ×3 (17:05→19:56)
--- NOTE | 2017-07-28 18:30 | P.PN ---
Subjective Progress Note Date: 07/28/17 Principal diagnosis: Incarcerated paraesophageal hiatal hernia, recurrent The patient is an 86-year-old female who comes in with history of recurrent incarcerated diaphragmatic hiatal hernia. Family is at bedside. Daughter reports overnight having troubles with taking her pills. She had an attempted esophagram this morning and vomited her the contrast. Patient feels well since prior to surgery. She does report some upper esophageal troubles with swallowing. No current problems with epigastric abdominal pain. Objective - Vital Signs Vital signs: Vital Signs Temp 98.0 F 07/28/17 08:00 Pulse 73 07/28/17 08:00 Resp 18 07/28/17 08:00 BP 112/71 07/28/17 08:00 Pulse Ox 92 L 07/28/17 07:00 Intake & Output 07/27/17 07/28/17 07/28/17 18:59 06:59 18:59 Intake Total 2450 Output Total 450 1875 Balance 1999 -1874 Weight 54.431 kg 54.431 kg Intake: IV 2450 Output: Urine 350 1875 Estimated Blood Loss 100 Other: Voiding Method Indwelling Catheter Indwelling Catheter - Exam GENERAL: Well developed and in no acute distress. Pleasant. HEENT: No sclera icterus. Extraocular movements grossly intact. Moist buccal mucosa. NECK: Supple without lymphadenopathy. No JV distention. CHEST: Non-labored respirations and equal bilateral excursions. CARDIOVASCULAR: Regular rate and rhythm. Palpable 2+ radial pulses. ABDOMEN: Soft. Nondistended. No peritonitis. MUSCULOSKELETAL: No clubbing, cyanosis or edema. NEUROLOGIC: No focal or lateralizing signs. PSYCH: Alert and oriented to person. Has dementia. SKIN: Good skin turgor. Well perfused. - Labs CBC & Chem 7: 07/28/17 06:20 07/28/17 06:20 Labs: Abnormal Lab Results - Last 24 Hours (Table) 07/27/17 07/28/17 Range/Units 21:25 06:20 RBC 3.64 L (3.80-5.40) m/uL Hgb 11.0 L (11.4-16.0) gm/dL Neutrophils # 9.5 H (1.3-7.7) k/uL Lymphocytes # 0.5 L (1.0-4.8) k/uL Magnesium 1.4 L (1.6-2.3) mg/dL Assessment and Plan (1) Dementia Current Visit: Yes Status: Acute Code(s): F03.90 - UNSPECIFIED DEMENTIA WITHOUT BEHAVIORAL DISTURBANCE SNOMED Code(s): 79807962 (2) Incarcerated paraesophageal hernia Current Visit: Yes Status: Acute Code(s): K44.0 - DIAPHRAGMATIC HERNIA WITH OBSTRUCTION, WITHOUT GANGRENE SNOMED Code(s): 02934202 (3) Epigastric pain Current Visit: Yes Status: Acute Code(s): R10.13 - EPIGASTRIC PAIN SNOMED Code(s): 08257881 (4) Weakness Current Visit: Yes Status: Acute Code(s): R53.1 - WEAKNESS SNOMED Code(s) : 73493623 (5) Seizure disorder Current Visit: Yes Status: Acute Code(s): G40.909 - EPILEPSY, UNSP, NOT INTRACTABLE, WITHOUT STATUS EPILEPTICUS SNOMED Code(s): 732391111 (6) Depression Current Visit: Yes Status: Acute Code(s): F32.9 - MAJOR DEPRESSIVE DISORDER , SINGLE EPISODE, UNSPECIFIED SNOMED Code(s): 95520940 (7) Vertigo Current Visit: Yes Status: Acute Code(s): R42 - DIZZINESS AND GIDDINESS SNOMED Code(s): 180650750 (8) Gastroesophageal reflux disease Current Visit: Yes Status: Acute Code(s): K21.9 - GASTRO-ESOPHAGEAL REFLUX DISEASE WITHOUT ESOPHAGITIS SNOMED Code(s): 023323836 (9) Mcdonald esophagus Current Visit: Yes Status: Acute Code(s): K22.70 - MCDONALD'S ESOPHAGUS WITHOUT DYSPLASIA SNOMED Code(s): 669058805 (10) Hypertensive heart disease Current Visit: Yes Status: Acute Code(s): I11.9 - HYPERTENSIVE HEART DISEASE WITHOUT HEART FAILURE SNOMED Code(s): 55063349 (11) Hyperlipidemia Current Visit: Yes Status: Acute Code(s): E78.5 - HYPERLIPIDEMIA, UNSPECIFIED SNOMED Code(s): 40735253 (12) Dysphagia Current Visit: Yes Status: Acute Code(s): R13.10 - DYSPHAGIA, UNSPECIFIED SNOMED Code(s): 61392399 Plan: 1. Recommend Decadron for swelling. 2. Pills and medication holiday. 3. Mouth swabs only. 4. Overall, patient is doing so much better than prior to surgery with family around. 5. Continue full inpatient hospitalization for pre-existing debility and weakness.
[2017-07-29] MEDS: MORPHINE SULFATE/PF 10MG/10ML VL IVP PRN ×2 (01:03→05:57)
[2017-07-29] MEDS: HYOSCYAMINE ORAL DROPS 1.875 MG/15 ML BOTTLE PO SCH ×4 (01:05→17:11)
[2017-07-29] MEDS: SIMETHICONE 40 MG/0.6 ML DROPS 2,000 MG/30 ML BOTTLE PO SCH ×4 (01:05→17:13)
[2017-07-29] MEDS: LACTATED RINGERS 1,000 ML IV SCH (05:39)
[2017-07-29 07:09] LABS: HCT 32.7 % (34.0-46.0); HGB 10.8 gm/dL (11.4-16.0); MCH 31.7 pg (25.0-35.0); MCV 95.8 fL (80.0-100.0); Mean Platelet Volume 7.4; Platelet Count 217 k/uL (150-450); RBC 3.41 m/uL (3.80-5.40); RDW 13.6 % (11.5-15.5); WBC 10.4 k/uL (3.8-10.6)
[2017-07-29] MEDS: ALBUTEROL NEBULIZED 2.5 MG/3 ML INHALATION SCH ×4 (07:32→18:50)
[2017-07-29] MEDS ORDERED: BISACODYL 5 MG TABLET.DR PO PRN (08:00)
[2017-07-29] MEDS: amLODIPine 10 MG TAB PO SCH (09:53)
[2017-07-29] MEDS: ASPIRIN 81 MG PO SCH (09:53)
[2017-07-29] MEDS: CAPTOPRIL 50 MG TAB PO SCH ×2 (09:53→17:09)
[2017-07-29] MEDS: DONEPEZIL 5 MG TAB PO SCH (09:53)
[2017-07-29] MEDS: levETIRAcetam 500 MG TAB PO SCH ×2 (09:53→20:32)
[2017-07-29] MEDS: PANTOPRAZOLE 40 MG/10 ML VIAL IV SCH (10:25)
[2017-07-29] MEDS: ENOXAPARIN 30 MG/0.3 ML SYRINGE SQ SCH (10:25)
--- NOTE | 2017-07-29 11:54 | P.PN ---
Subjective Principal diagnosis: Incarcerated paraesophageal hiatal hernia, recurrent The patient is an 86-year-old female who comes in with history of recurrent incarcerated diaphragmatic hiatal hernia. She is POD #2 status post hiatal hernia repair. Yesterday she had moderate swelling along the throat. Now she is able to swallow and cough. Family is at bedside. No reports of nausea and vomiting. Vital signs has been completely stable. She is using her incentive spirometer. Objective - Vital Signs Vital signs: Vital Signs Temp 98.3 F 07/29/17 07:55 Pulse 60 07/29/17 07:55 Resp 16 07/29/17 07:55 BP 127/67 07/29/17 07:55 Pulse Ox 96 07/29/17 07:55 Intake & Output 07/28/17 07/29/17 07/29/17 18:59 06:59 18:59 Output Total 300 Balance -300 Output: Urine 300 Uretheral (Sandhu) 300 Other: Voiding Method Indwelling Catheter # Voids 1 2 - Exam GENERAL: Well developed and in no acute distress. Pleasant. HEENT: No sclera icterus. Extraocular movements grossly intact. Moist buccal mucosa. NECK: Supple without lymphadenopathy. No JV distention. CHEST: Non-labored respirations and equal bilateral excursions. CARDIOVASCULAR: Regular rate and rhythm. Palpable 2+ radial pulses. ABDOMEN: Soft. Nondistended. No peritonitis. MUSCULOSKELETAL: No clubbing, cyanosis or edema. NEUROLOGIC: No focal or lateralizing signs. PSYCH: Alert and oriented to person. Has dementia. SKIN: Good skin turgor. Well perfused. - Labs CBC & Chem 7: 07/29/17 06:39 07/28/17 06:20 Labs: Abnormal Lab Results - Last 24 Hours (Table) 07/29/17 Range/Units 06:39 RBC 3.41 L (3.80-5.40) m/uL Hgb 10.8 L (11.4-16.0) gm/dL Hct 32.7 L (34.0-46.0) % Assessment and Plan (1) Dementia Current Visit: Yes Status: Acute Code(s): F03.90 - UNSPECIFIED DEMENTIA WITHOUT BEHAVIORAL DISTURBANCE SNOMED Code(s): 94255946 (2) Incarcerated paraesophageal hernia Current Visit: Yes Status: Acute Code(s): K44.0 - DIAPHRAGMATIC HERNIA WITH OBSTRUCTION, WITHOUT GANGRENE SNOMED Code(s): 53192456 (3) Epigastric pain Current Visit: Yes Status: Acute Code(s): R10.13 - EPIGASTRIC PAIN SNOMED Code(s): 14606488 (4) Weakness Current Visit: Yes Status: Acute Code(s): R53.1 - WEAKNESS SNOMED Code(s) : 03309075 (5) Seizure disorder Current Visit: Yes Status: Acute Code(s): G40.909 - EPILEPSY, UNSP, NOT INTRACTABLE, WITHOUT STATUS EPILEPTICUS SNOMED Code(s): 429776060 (6) Depression Current Visit: Yes Status: Acute Code(s): F32.9 - MAJOR DEPRESSIVE DISORDER , SINGLE EPISODE, UNSPECIFIED SNOMED Code(s): 32366774 (7) Vertigo Current Visit: Yes Status: Acute Code(s): R42 - DIZZINESS AND GIDDINESS SNOMED Code(s): 512679713 (8) Gastroesophageal reflux disease Current Visit: Yes Status: Acute Code(s): K21.9 - GASTRO-ESOPHAGEAL REFLUX DISEASE WITHOUT ESOPHAGITIS SNOMED Code(s): 701287722 (9) Reyna esophagus Current Visit: Yes Status: Acute Code(s): K22.70 - REYNA'S ESOPHAGUS WITHOUT DYSPLASIA SNOMED Code(s): 049453686 (10) Hypertensive heart disease Current Visit: Yes Status: Acute Code(s): I11.9 - HYPERTENSIVE HEART DISEASE WITHOUT HEART FAILURE SNOMED Code(s): 56379791 (11) Hyperlipidemia Current Visit: Yes Status: Acute Code(s): E78.5 - HYPERLIPIDEMIA, UNSPECIFIED SNOMED Code(s): 12711422 (12) Dysphagia Current Visit: Yes Status: Acute Code(s): R13.10 - DYSPHAGIA, UNSPECIFIED SNOMED Code(s): 98877291 Plan: 1. Start liquids today, preferably nectar thick fluids. 2. May start medications however crushable or liquid form 3. Continue incentive spirometry 4. Esophagram tomorrow 5. Likely discharge home tomorrow
[2017-07-29] MEDS: 0.9% NACL WITH KCL 20 MEQ/L 1,000 ML IV SCH ×2 (13:26→20:35)
[2017-07-29] MEDS: MORPHINE SULF 5MG/10ML VL IVP PRN (18:33)
--- NOTE | 2017-07-29 21:59 | CONS ---
CONSULTATION DATE OF CONSULTATION: 07/29/2017. REASON FOR CONSULTATION: Medical management, requested by Dr. Rosario. CONSULTATION: This is an 86-year-old patient of Dr. Sierra. The patient underwent abdominal surgery for paraesophageal hiatal hernia and adhesions. Having abdominal pain. No nausea or vomiting. The patient's family is at the bedside. Chronic stable medical conditions include GERD, anxiety, depression, scoliosis, stroke-induced dementia. The patient is able to recognize family, able to carry on simple conversations. The patient is significantly forgetful. The patient did have what she describes as a brain bleed of about 10.5 cm about 6 years. Normally uses a cane to get about. Currently patient is on ice chips. Sitting up in a chair. REVIEW OF SYSTEMS: Constitutional: Tired. HEENT: Decreased hearing. Respiratory: None. Cardiovascular: None. Gastrointestinal: Heartburn, abdominal pain. Genitourinary: None. Musculoskeletal: Some pain in the joints. Dermatological: None. Hematologic: None. Lymphatic: None. Psychiatry: Forgetful. Neurological: Uses a cane to walk about. PAST MEDICAL HISTORY: Stroke induced dementia, GERD, hiatal hernia, brain bleed 7.5 cm, scoliosis, anxiety, depression. PAST SURGICAL HISTORY: , tubal ligation, hiatal hernia, cataract surgery. PSYCH HISTORY: Anxiety, depression. SOCIAL HISTORY: Does not smoke or drink alcohol. Lives with daughter. Uses a cane. FAMILY HISTORY: Pancreatic cancer. MEDICATIONS: 1. Keppra 500 mg p.o. every 12. 2. Norvasc 10 mg p.o. daily. 3. Zoloft 100 mg p.o. daily. 4. Prilosec 40 mg p.o. daily. 5. Multivitamin 1 tab p.o. daily. 6. Desyrel 150 mg p.o. daily. 7. Antivert 25 mg p.o. daily. 8. Claritin 10 mg p.o. daily. 9. 200 mg p.o. daily. 10.Pepcid 20 mg p.o. b.i.d. 11.Lodine 5 mg p.o. daily. 12.Aricept 5 mg p.o. daily. 13. 10 grams p.o. b.i.d. 14.Nephrocaps 1 mg p.o. daily. 15.Lipitor 10 mg p.o. daily. 16.Aspirin 81 mg p.o. daily. 17.Tylenol Extra Strength 5 mg p.o. b.i.d. ALLERGIES: CLINDAMYCIN, SULFA. EXAMINATION: Temp is 98.3, pulse 60, respirations 16, blood pressure 137/67, pulse 96. GENERAL APPEARANCE: Average built, sitting up in a chair, awake. EYES: Pupils equal. Conjunctivae normal. HEENT: External nose and ears normal. Oral cavity normal, decreased hearing. NECK: JVD not raised. Mass not palpable. Respiratory effort normal. LUNGS: Fair air entry. CARDIOVASCULAR: First and second heart sounds normal. No edema. ABDOMEN: Tender, dressing in place. Abdomen tender. Bowel sounds sluggish. Liver and spleen not palpable. LYMPHATICS: No lymph nodes palpable in neck or axillae. PSYCHIATRY: Patient able to answer simple questions. Mood and affect normal. NEUROLOGIC: Pupils equal. Cranial nerves grossly intact. Power and sensation grossly intact. MUSCULOSKELETAL: Evidence of some osteoarthritis, especially in the hands. INVESTIGATIONS: White count 6.8, potassium 4.6, magnesium 2.3. ASSESSMENT: 1. Status post abdominal surgery for paraesophageal hiatal hernia, lysis of adhesions and incarcerated midline incisional hiatal hernia. 2. 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 3. Chronic gastroesophageal reflux disease. 4. Chronic scoliosis. 5. Anxiety and depression, not otherwise specified. 6. Normocytic anemia, cause unknown. 7. Gait dysfunction, uses a cane at baseline. PLAN: Some of the patient's oral medications are resumed. The patient was due for a barium study tomorrow. The patient is getting Lovenox for DVT prophylaxis. Diet will be advanced per Dr. Rosario. Care was discussed with the patient's daughter at the bedside. Questions were answered. Thank you Dr. Rosario. MMODL / IJN: [id number] /
[2017-07-30] MEDS: HYOSCYAMINE ORAL DROPS 1.875 MG/15 ML BOTTLE PO SCH ×3 (00:07→12:40)
[2017-07-30] MEDS: SIMETHICONE 40 MG/0.6 ML DROPS 2,000 MG/30 ML BOTTLE PO SCH ×3 (00:07→12:41)
[2017-07-30] MEDS: MORPHINE SULF 5MG/10ML VL IVP PRN ×2 (03:21→09:50)
[2017-07-30] MEDS: LACTATED RINGERS 1,000 ML IV SCH (05:11)
[2017-07-30] MEDS: ALBUTEROL NEBULIZED 2.5 MG/3 ML INHALATION SCH (07:44)
[2017-07-30 08:34] VITALS: BP 150/62; PULSE 76; RESP 17; TEMP 97.6
[2017-07-30] MEDS: levETIRAcetam 500 MG TAB PO SCH (08:44)
[2017-07-30] MEDS: amLODIPine 10 MG TAB PO SCH (08:44)
[2017-07-30] MEDS: CAPTOPRIL 50 MG TAB PO SCH (08:44)
[2017-07-30] MEDS: ASPIRIN 81 MG PO SCH (08:44)
[2017-07-30] MEDS: DONEPEZIL 5 MG TAB PO SCH (08:44)
[2017-07-30] MEDS: PANTOPRAZOLE 40 MG/10 ML VIAL IV SCH (08:46)
[2017-07-30] MEDS ORDERED: ENOXAPARIN 40 MG/0.4 ML SYRINGE SQ SCH (09:00)
[2017-07-30] MEDS ORDERED: SODIUM FERRIC GLUCONAT-SUCROSE 125 MG in SODIUM CHLORIDE 0.9% 100 ML IVPB SCH (09:00)
[2017-07-30] MEDS: 0.9% NACL WITH KCL 20 MEQ/L 1,000 ML IV SCH (09:54)
--- NOTE | 2017-07-30 11:52 | P.PN ---
<Cathleen Hernandezjose Marsh - Last Filed: 07/30/17 11:43> Subjective Progress Note Date: 07/30/17 86-year-old seen and examined at bedside. ambulating in the ariza with physical therapy this morning. Patient denies dizziness lightheadedness. States is passing gas. Additionally patient reports that she is able to tolerate buddy clear liquid diet no difficulty swallowing. Is afebrile nasal cannula 2 L sats 92% surgical incision sites dry no labs pending currently is receiving IV iron Patient is postop day 3 hiatal hernia repair Objective - Vital Signs Vital signs: Vital Signs Temp 97.6 F 07/30/17 08:31 Pulse 76 07/30/17 08:31 Resp 17 07/30/17 08:31 BP 150/62 07/30/17 08:31 Pulse Ox 92 L 07/30/17 08:31 Intake & Output 07/29/17 07/30/17 07/30/17 18:59 06:59 18:59 Intake Total 780 590 Balance 780 590 Intake: IV 600 0.9% NaCl with KCl 20 Meq 600 /l 1,000 ml @ 75 mls/hr IV .[id number] [facility] Rx#: [id number] Oral 180 590 Other: Voiding Method Bedside Commode Bedside Commode Bedside Commode # Voids 1 2 - Exam Physical exam Pleasant 86-year-old female sitting up in bed just returned from walking in the hallway family at bedside Lungs adequate air movement bilaterally no cough no shortness of breath Heart S1-S2 audible and regular denying chest pain Abdomen surgical incision sites dry no redness nontender not distended bowel tones present no difficulty in swallowing. Tolerating buddy clear liquid diet Extremities no edema noted to the lower extremities - Labs CBC & Chem 7: 07/29/17 06:39 07/28/17 06:20 Labs: Abnormal Lab Results - Last 24 Hours (Table) 07/27/17 Range/Units 21:25 Iron 17 L (50-170) ug/dL Iron Saturation 5.61 L (12.00-45.00) Assessment and Plan Assessment: Impression Assessment and Plan (1) Dementia Current Visit: Yes Status: Acute Code(s): F03.90 - UNSPECIFIED DEMENTIA WITHOUT BEHAVIORAL DISTURBANCE SNOMED Code(s): 52365896 (2) Incarcerated paraesophageal hernia Current Visit: Yes Status: Acute Code(s): K44.0 - DIAPHRAGMATIC HERNIA WITH OBSTRUCTION, WITHOUT GANGRENE SNOMED Code(s): 48609573 (3) Epigastric pain Current Visit: Yes Status: Acute Code(s): R10.13 - EPIGASTRIC PAIN SNOMED Code(s): 58619088 (4) Weakness Current Visit: Yes Status: Acute Code(s): R53.1 - WEAKNESS SNOMED Code(s) : 65338646 (5) Seizure disorder Current Visit: Yes Status: Acute Code(s): G40.909 - EPILEPSY, UNSP, NOT INTRACTABLE, WITHOUT STATUS EPILEPTICUS SNOMED Code(s): 149234395 (6) Depression Current Visit: Yes Status: Acute Code(s): F32.9 - MAJOR DEPRESSIVE DISORDER , SINGLE EPISODE, UNSPECIFIED SNOMED Code(s): 73991582 (7) Vertigo Current Visit: Yes Status: Acute Code(s): R42 - DIZZINESS AND GIDDINESS SNOMED Code(s): 438169418 (8) Gastroesophageal reflux disease Current Visit: Yes Status: Acute Code(s): K21.9 - GASTRO-ESOPHAGEAL REFLUX DISEASE WITHOUT ESOPHAGITIS SNOMED Code(s): 863547707 (9) Mcdonald esophagus Current Visit: Yes Status: Acute Code(s): K22.70 - MCDONALD'S ESOPHAGUS WITHOUT DYSPLASIA SNOMED Code(s): 658879910 (10) Hypertensive heart disease Current Visit: Yes Status: Acute Code(s): I11.9 - HYPERTENSIVE HEART DISEASE WITHOUT HEART FAILURE SNOMED Code(s): 77829797 (11) Hyperlipidemia Current Visit: Yes Status: Acute Code(s): E78.5 - HYPERLIPIDEMIA, UNSPECIFIED SNOMED Code(s): 82029079 (12) Dysphagia Current Visit: Yes Status: Acute Code(s): R13.10 - DYSPHAGIA, UNSPECIFIED SNOMED Code(s): 49276107 Plan: Liquid diet preferably nectar thick liquids Medications to be crushed or liquid form Prepped for discharge today The above impression and plan of care have been discussed and directed by signing physician. Jessica Hernandez nurse practitioner acting as scribe for signing physician. <Alisa Rosario - Last Filed: 07/30/17 12:36> Objective - Vital Signs Vital signs: Vital Signs Temp 97.6 F 07/30/17 08:31 Pulse 76 07/30/17 08:31 Resp 17 07/30/17 08:31 BP 150/62 07/30/17 08:31 Pulse Ox 92 L 07/30/17 08:31 Intake & Output 07/29/17 07/30/17 07/30/17 18:59 06:59 18:59 Intake Total 780 590 Balance 780 590 Intake: IV 600 0.9% NaCl with KCl 20 Meq 600 /l 1,000 ml @ 75 mls/hr IV .[id number] [facility] Rx#: [id number] Oral 180 590 Other: Voiding Method Bedside Commode Bedside Commode Bedside Commode # Voids 1 2 - Labs CBC & Chem 7: 07/29/17 06:39 07/28/17 06:20 Labs: Abnormal Lab Results - Last 24 Hours (Table) 07/27/17 Range/Units 21:25 Iron 17 L (50-170) ug/dL Iron Saturation 5.61 L (12.00-45.00) Assessment and Plan (1) Dementia Current Visit: Yes Status: Acute Code(s): F03.90 - UNSPECIFIED DEMENTIA WITHOUT BEHAVIORAL DISTURBANCE SNOMED Code(s): 18827900 (2) Incarcerated paraesophageal hernia Current Visit: Yes Status: Acute Code(s): K44.0 - DIAPHRAGMATIC HERNIA WITH OBSTRUCTION, WITHOUT GANGRENE SNOMED Code(s): 45867153 (3) Epigastric pain Current Visit: Yes Status: Acute Code(s): R10.13 - EPIGASTRIC PAIN SNOMED Code(s): 63924347 (4) Weakness Current Visit: Yes Status: Acute Code(s): R53.1 - WEAKNESS SNOMED Code(s) : 30897693 (5) Seizure disorder Current Visit: Yes Status: Acute Code(s): G40.909 - EPILEPSY, UNSP, NOT INTRACTABLE, WITHOUT STATUS EPILEPTICUS SNOMED Code(s): 328987357 (6) Depression Current Visit: Yes Status: Acute Code(s): F32.9 - MAJOR DEPRESSIVE DISORDER , SINGLE EPISODE, UNSPECIFIED SNOMED Code(s): 03912924 (7) Vertigo Current Visit: Yes Status: Acute Code(s): R42 - DIZZINESS AND GIDDINESS SNOMED Code(s): 904169041 (8) Gastroesophageal reflux disease Current Visit: Yes Status: Acute Code(s): K21.9 - GASTRO-ESOPHAGEAL REFLUX DISEASE WITHOUT ESOPHAGITIS SNOMED Code(s): 101912928 (9) Mcdonald esophagus Current Visit: Yes Status: Acute Code(s): K22.70 - MCDONALD'S ESOPHAGUS WITHOUT DYSPLASIA SNOMED Code(s): 748145820 (10) Hypertensive heart disease Current Visit: Yes Status: Acute Code(s): I11.9 - HYPERTENSIVE HEART DISEASE WITHOUT HEART FAILURE SNOMED Code(s): 76495475 (11) Hyperlipidemia Current Visit: Yes Status: Acute Code(s): E78.5 - HYPERLIPIDEMIA, UNSPECIFIED SNOMED Code(s): 05837541 (12) Dysphagia Current Visit: Yes Status: Acute Code(s): R13.10 - DYSPHAGIA, UNSPECIFIED SNOMED Code(s): 53646451 (13) Iron deficiency anemia due to dietary causes Current Visit: Yes Status: Acute Code(s): D50.8 - OTHER IRON DEFICIENCY ANEMIAS SNOMED Code(s): 178701748
--- NOTE | 2017-07-30 12:36 | P.DS ---
Providers Date of admission: 07/27/17 06:06 Expected date of discharge: 07/30/17 Attending physician: Alisa Rosario Consults: 07/28/17 15:32 Consult Physician Routine Consulting Provider: Kael Whitfield Consult Reason/Comments: Medical management Do you want consulting provider notified?: Yes Primary care physician: Alexander Sierra - Discharge Diagnosis(es) (1) Dementia Current Visit: Yes Status: Acute (2) Incarcerated paraesophageal hernia Current Visit: Yes Status: Acute (3) Epigastric pain Current Visit: Yes Status: Acute (4) Weakness Current Visit: Yes Status: Acute (5) Seizure disorder Current Visit: Yes Status: Acute (6) Depression Current Visit: Yes Status: Acute (7) Vertigo Current Visit: Yes Status: Acute (8) Gastroesophageal reflux disease Current Visit: Yes Status: Acute (9) Reyna esophagus Current Visit: Yes Status: Acute (10) Hypertensive heart disease Current Visit: Yes Status: Acute (11) Hyperlipidemia Current Visit: Yes Status: Acute (12) Dysphagia Current Visit: Yes Status: Acute (13) Iron deficiency anemia due to dietary causes Current Visit: Yes Status: Acute Hospital Course: POSTOPERATIVE DIAGNOSES: 1. Gastroesophageal reflux disease. 2. Paraesophageal incarcerated hiatal hernia, midline, recurrent, 8 x 5 cm 3. History of previous Calos fundoplasty 4. Seizure disorder 5. Alzheimer's dementia 6. Depression 7. Vertigo 8. Dysphagia 9. Ineffective esophageal motility 10. Epigastric abdominal pain 11. Intractable nausea and vomiting 12. Weakness 13. Iron deficiency anemia 14. Hyperlipidemia 15. Diffuse osteoarthritis 16. Hypertensive heart disease 17. 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 Peritoneal adhesions left lower quadrant from previous inguinal hernia repair The patient is a 86-year-old female with history of recurrent incarcerated midline diaphragmatic hiatal hernia. Her index operation was Via thoracic approach. She had robotic repair of her hiatal hernia on 2017. She had pre-existing dysphagia which had improved post procedure. Additionally, family and patient notes increased improvement of energy following surgery. She had an attempted esophagram however the patient had vomited. After continued observation, her swallowing improved. She was tolerating liquids and taking her medications in crushed or liquid form. She has pre-existing iron deficiency anemia for which iron infusion were given. Prior to discharge, discharge instructions including liquid diet was reviewed. Esophagram as outpatient will be performed. Procedures: OPERATION: 1. Robotic-assisted da Elisabeth Xi laparoscopic takedown of Calos fundoplasty from incarcerated recurrent paraesophageal hiatal hernia along the mediastinum using robotic stapler green load 2. Robotic-assisted da Elisabeth Xi laparoscopic extensive lysis of adhesions over 4 hours for perigastric adhesions including mediastinal adhesions 3. Robotic-assisted da Elisabeth Xi laparoscopic reduction and repair of recurrent incarcerated midline paraesophageal hiatal hernia, 8 x 5 cm, with Gunlock Biopatch A 8 x 8 cm and pledgeted repair 4. Intraoperative esophagogastroduodenoscopy ANESTHESIA: General with local anesthetic. ESTIMATED BLOOD LOSS: 100 mL SPECIMENS REMOVED: None. COMPLICATIONS: None. Condition: stable Disposition: floor FINDINGS: 1. Thoracic length 16.5 cm. 2. Slipped Calos fundoplasty 3. Incarcerated upper pole of the stomach deep into mediastinum from previous thoracic approach hiatal hernia. 4. Paraesophageal incarcerated recurrent diaphragmatic hiatal hernia 8 cm axial length by 5 cm width, with moderate dissection into the mediastinum. 5. Gunlock Biopatch A onlay mesh placed with pledgeted repair along the right and left sylvain including anterior hiatal hernia repair reinforcement 6. Fundoplasty taken down using 45 mm green load 7. Gastric diverticulum identified along cardiac 8. Squamocolumnar junction obliterated to 30 cm from over 3 cm segment of Reyna's esophagus 9. Negative leak test 10. Retained large hiatal hernia sac identified from index operation from thoracic approach hiatal herna incised and resected to prevent recurrence. 11. More than 3 cm intra-abdominal esophageal length Patient Condition at Discharge: Stable Plan - Discharge Summary Discharge Rx Participant: Yes New Discharge Prescriptions: New Bisacodyl [Dulcolax] 5 mg PO DAILY PRN #10 tablet.dr PRN Reason: Constipation Ondansetron Odt [Zofran Odt] 4 mg PO Q8HR PRN #9 tab PRN Reason: Nausea Simethicone 40 mg/0.6 ml Drops [Mylicon Drops] 40 mg PO PCHS PRN #30 ml PRN Reason: Gas Continue Atorvastatin [Lipitor] 10 mg PO DAILY amLODIPine [Norvasc] 10 mg PO QAM Captopril [Capoten] 50 mg PO AC-BID levETIRAcetam [Keppra] 500 mg PO Q12HR Omeprazole [PriLOSEC] 40 mg PO QAM Meclizine [Antivert] 25 mg PO DAILY Loratadine [Claritin] 10 mg PO DAILY Donepezil HCl [Aricept] 5 mg PO DAILY Aspirin [Adult Low Dose Aspirin EC] 81 mg PO DAILY Acetaminophen [Tylenol Extra Strength] 500 mg PO BID Discontinued Multivitamins, Thera [Multivitamin (formulary)] 1 tab PO DAILY Famotidine [Pepcid] 20 mg PO BID@1600,2100 Sertraline [Zoloft] 100 mg PO QAM Milk Thistle 150 mg PO DAILY Krill Oil 500 mg PO DAILY Etodolac [Lodine] 500 mg PO DAILY Colon Health 1 tab PO DAILY B Complex & C No.20/Folic Acid [Nephrocaps Softgel] 1 mg PO DAILY Discharge Medication List Acetaminophen [Tylenol Extra Strength] 500 mg PO BID 06/08/17 [History] Aspirin [Adult Low Dose Aspirin EC] 81 mg PO DAILY 06/08/17 [History] Atorvastatin [Lipitor] 10 mg PO DAILY 06/08/17 [History] Captopril [Capoten] 50 mg PO AC-BID 06/08/17 [History] Donepezil HCl [Aricept] 5 mg PO DAILY 06/08/17 [History] Loratadine [Claritin] 10 mg PO DAILY 06/08/17 [History] Meclizine [Antivert] 25 mg PO DAILY 06/08/17 [History] Omeprazole [PriLOSEC] 40 mg PO QAM 06/08/17 [History] amLODIPine [Norvasc] 10 mg PO QAM 06/08/17 [History] levETIRAcetam [Keppra] 500 mg PO Q12HR 06/08/17 [History] Bisacodyl [Dulcolax] 5 mg PO DAILY PRN #10 tablet. 07/30/17 [Rx] Ondansetron Odt [Zofran Odt] 4 mg PO Q8HR PRN #9 tab 07/30/17 [Rx] Simethicone 40 mg/0.6 ml Drops [Mylicon Drops] 40 mg PO PCHS PRN #30 ml [Rx] Follow up Appointment(s)/Referral(s): Alisa Rosario MD [STAFF PHYSICIAN] - 08/07/17 Patient Instructions/Handouts: Hiatal Hernia (GEN), Laparoscopic Hiatal Hernia Repair (GEN) Activity/Diet/Wound Care/Special Instructions: No trochanter straws. No carbonated beverages. Please crush open or capsules for medications. No ibuprofen, Aleve, Motrin at this time. No lifting over 4 pounds in 4 weeks. May shower. No bath tub soaks. Please take protein shakes 3 times daily Discharge Disposition: HOME SELF-CARE
--- NOTE | 2017-07-30 12:49 | PN ---
PROGRESS NOTE DATE OF SERVICE: 07/30/2017 PRESENTING COMPLAINT: Abdominal surgery. INTERVAL HISTORY: This is a patient status post esophageal hiatal hernia surgery. Did went for a modified barium swallow this morning, did aspirate a bit. Study could not be completed. Though patient is swallowing better. Breathing is stable. Pulse ox 92% to 93% on room air. Having some pain at the operative site. Family is at the bedside. REVIEW OF SYSTEMS: Review of systems done for constitutional, cardiovascular, GI, pulmonary; relevant findings as above. MEDICATIONS: Current medications are reviewed. PHYSICAL EXAMINATION: On examination, temperature 97.6, pulse 76, respirations 17, blood pressure 150/62, pulse ox 93% on room air. GENERAL APPEARANCE: Sitting up on chair, a bit tired appearing. EYES: Pupils are equal. Conjunctivae normal. HENT: External appearance of nose and ears normal. Oral cavity normal. NECK: JVD not raised. Mass not palpable. RESPIRATORY: Effort normal. LUNGS: Fair entry. CARDIOVASCULAR: First and second sounds normal. No edema. ABDOMEN: Upper abdomen tender, dressing in place. Bowel sounds sluggish. Liver and spleen not palpable. PSYCHIATRY: Alert and oriented x3. Mood affect is normal. INVESTIGATIONS: Hemoglobin 10.8 from yesterday. ASSESSMENT: 1. Status post abdominal surgery for paraesophageal hiatal hernia, lysis of adhesions and incarcerated midline incisional hiatal hernia. 2. 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 3. Chronic gastroesophageal reflux disease. 4. Chronic scoliosis. 5. Anxiety, depression, not otherwise specified. 6. Normocytic anemia, cause unknown. 7. Gait dysfunction, uses a cane at baseline. 8. Iron deficiency anemia. PLAN: Patient's pulse on room air. Diet will be advanced as per Dr. Rosario. Care was discussed with family at the bedside. She will be having help at home. When patient's swallowing gets better, she may start taking iron tablets. Thank you Dr. Rosario. MMODL / IJN: [id number] /
== END 2017-07-30 13:24 | disposition home or self-care (01) | DRG 327 ==
LOC: 2ORMAIN 06:06 → 3SUR 15:10
PROVIDERS: ADMIT Surgery Plastic and Reconstructive Surgery; ATTEND Surgery Plastic and Reconstructive Surgery
PROC: 0DQ44ZZ Repair Esophagogastric Junction, Percutaneous Endoscopic Approach (ICD-10-PCS; 2017-07-27)
PROC: 0BUT4JZ Supplement Diaphragm with Synthetic Substitute, Percutaneous Endoscopic Approach (ICD-10-PCS; 2017-07-27)
PROC: 8E0W4CZ Robotic Assisted Procedure of Trunk Region, Percutaneous Endoscopic Approach (ICD-10-PCS; 2017-07-27)
PROC: 0DJ08ZZ Inspection of Upper Intestinal Tract, Via Natural or Artificial Opening Endoscopic (ICD-10-PCS; 2017-07-27)
PROC: 0DN64ZZ Release Stomach, Percutaneous Endoscopic Approach (ICD-10-PCS; principal; 2017-07-27 08:00)
DX: K91.89 Other postprocedural complications and disorders of digestive system (principal); K44.0 Diaphragmatic hernia with obstruction, without gangrene; G40.909 Epilepsy, unspecified, not intractable, without status epilepticus; G30.9 Alzheimer's disease, unspecified; F02.80 Dementia in other diseases classified elsewhere, unspecified severity, without behavioral disturbance, psychotic disturbance, mood disturbance, and anxiety; M41.9 Scoliosis, unspecified; I11.9 Hypertensive heart disease without heart failure; R13.10 Dysphagia, unspecified; K31.4 Gastric diverticulum; K66.0 Peritoneal adhesions (postprocedural) (postinfection); K21.9 Gastro-esophageal reflux disease without esophagitis; D17.79 Benign lipomatous neoplasm of other sites; K59.09 Other constipation; K42.9 Umbilical hernia without obstruction or gangrene; F32.9 Major depressive disorder, single episode, unspecified; F41.9 Anxiety disorder, unspecified; K80.20 Calculus of gallbladder without cholecystitis without obstruction; M19.042 Primary osteoarthritis, left hand; M19.041 Primary osteoarthritis, right hand; K22.70 Barrett's esophagus without dysplasia; E78.5 Hyperlipidemia, unspecified; G89.29 Other chronic pain; K22.4 Dyskinesia of esophagus; D50.8 Other iron deficiency anemias; R42 Dizziness and giddiness; R26.9 Unspecified abnormalities of gait and mobility; I25.2 Old myocardial infarction; Z79.82 Long term (current) use of aspirin; Z79.899 Other long term (current) drug therapy; Z86.73 Personal history of transient ischemic attack (TIA), and cerebral infarction without residual deficits; Z85.828 Personal history of other malignant neoplasm of skin; Z98.42 Cataract extraction status, left eye; Z98.41 Cataract extraction status, right eye; Z88.4 Allergy status to anesthetic agent; Z88.1 Allergy status to other antibiotic agents; Z88.0 Allergy status to penicillin; Z88.2 Allergy status to sulfonamides; Y83.8 Other surgical procedures as the cause of abnormal reaction of the patient, or of later complication, without mention of misadventure at the time of the procedure; Z80.0 Family history of malignant neoplasm of digestive organs
CPT/HCPCS: 74240; 80051; 82310; 82565; 83540; 83550; 83735; 84100; 84520; 85025; 85027; 86850; 86900; 86901; 94640; 94760; 94762

== ENCOUNTER 2017-10-15 09:27 | Day surgery (SDC) | payer MEDICARE ==
[2017-10-10 12:52] VITALS: BMI 24.2
--- NOTE | 2017-10-15 06:28 | P.GSHP ---
History of Present Illness H&P Date: 10/15/17 CHIEF COMPLAINT: GERD HISTORY OF PRESENT ILLNESS: The patient is a 86-year-old female who presents reports gastroesophageal reflux disease. Upper endoscopy was offered for further evaluation and management. PAST MEDICAL HISTORY: Please see list. PAST SURGICAL HISTORY: Please see list. MEDICATIONS: Please see list. ALLERGIES: Please see list. SOCIAL HISTORY: No illicit drug use FAMILY HISTORY: No reports of Crohn disease or ulcerative colitis. REVIEW OF ORGAN SYSTEMS: CONSTITUTIONAL: No reports of fevers or chills. GI: Denies any blood in stools or constipation. PHYSICAL EXAM: VITAL SIGNS: Stable GENERAL: Well-developed and pleasant in no acute distress. HEENT: No scleral icterus. Extraocular movements grossly intact. Moist buccal mucosa. NECK: Supple without lymphadenopathy. CHEST: Unlabored respirations. Equal bilateral excursions. CARDIOVASCULAR: Regular rate and rhythm. Distal 2+ pulses. ABDOMEN: Soft, nondistended. MUSCULOSKELETAL: No clubbing, cyanosis, or edema. ASSESSMENT: 1. Gastroesophageal reflux disease PLAN: 1. 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 History of Any Multi-Drug Resistant Organisms: None Reported Past Surgical History: Section, Tubal Ligation Additional Past Surgical History / Comment(s): Hiatal hernia repair, grisel cataract sx, EGD. Past Anesthesia/Blood Transfusion Reactions: No Reported Reaction Additional Past Anesthesia/Blood Transfusion Reaction / Comment(s): No hx blood transfusion Past Psychological History: Anxiety, Depression Additional Psychological History / Comment(s): Dementia Smoking Status: Never smoker Past Alcohol Use History: None Reported Past Drug Use History: None Reported - Past Family History Mother Family Medical History: Cancer Additional Family Medical History / Comment(s): pancreatic cancer Father Family Medical History: CVA/TIA Medications and Allergies Home Medications Medication Instructions Recorded Confirmed Type Acetaminophen [Tylenol Extra 1,000 mg PO BID 06/08/17 10/10/17 History Strength] Aspirin [Adult Low Dose Aspirin EC] 81 mg PO DAILY 06/08/17 10/10/17 History Atorvastatin [Lipitor] 10 mg PO DAILY 06/08/17 10/10/17 History Captopril [Capoten] 50 mg PO BID 06/08/17 10/10/17 History Donepezil HCl [Aricept] 5 mg PO DAILY 06/08/17 10/10/17 History Loratadine [Claritin] 10 mg PO DAILY 06/08/17 10/10/17 History Meclizine [Antivert] 25 mg PO DAILY 06/08/17 10/10/17 History Omeprazole [PriLOSEC] 40 mg PO QAM 06/08/17 10/10/17 History Sertraline [Zoloft] 100 mg PO DAILY 10/10/17 10/10/17 History Allergies Allergy/AdvReac Type Severity Reaction Status Date / Time clindamycin Allergy SOB,dizzyne Verified 10/10/17 12:31 ss Penicillins Allergy SOB Verified 10/10/17 12:31 Sulfa (Sulfonamide Allergy SOB Verified 10/10/17 12:31 Antibiotics)
[~2017-10-15 09:27] MED LIST changes: -ACETAMINOPHEN IVPB ONE; -DEXAMETHASONE SOD PHOSPHATE 10 MG/ML 1 ML VIAL IV ONE; -HEPARIN SODIUM,PORCINE 5,000 UNIT/ML 1 ML VIAL SQ ONE; +LACTATED RINGERS 1,000 ML IV SCH; -MIDAZOLAM 2 MG/2 ML VIAL IV PRN; -ONDANSETRON 4 MG/2 ML VIAL IVP ONE; -ceFAZolin 2 GM in SODIUM CHLORIDE 0.9% 100 ML IVPB ONE; -ceFAZolin IN SWFI 2 GM/20 ML SYRINGE IVP ONE; -metroNIDAZOLE-NS PMX 500 MG in SALINE 1 100ML.BAG IVPB ONE
[2017-10-15] MEDS ORDERED: LIDOCAINE 1% 20 ML VIAL (10MG/ML) FOR IV START INTRADERMA ONE (10:00)
[2017-10-15] MEDS ORDERED: LACTATED RINGERS 1,000 ML IV ONE ×2 (10:08)
[2017-10-15] MEDS ORDERED: PROPOFOL 10 MG/ML 20 ML VIAL IV ONE (10:12)
[2017-10-15] MEDS ORDERED: LIDOCAINE 1% INJ 10MG/ML (20 ML MDV) ONE (10:12)
[2017-10-15 10:14] VITALS: RESP 16; TEMP 98.4
--- NOTE | 2017-10-15 10:29 | P.PCN ---
Date of Procedure: 10/15/17 Description of Procedure: PREOPERATIVE DIAGNOSIS: Gastroesophageal reflux disease. History of hiatal hernia repair 2 Dysphagia POSTOPERATIVE DIAGNOSIS: Gastroesophageal reflux disease. History of hiatal hernia repair 2 Dysphagia OPERATION: Esophagogastroduodenoscopy SURGEON: Alisa Rosario MD ANESTHESIA: MAC. INDICATIONS: The patient is a 86-year-old female who presents with a history of reflux disease. Benefits and risks of the procedure were described. Informed consent was obtained. DESCRIPTION: The patient was brought into the endoscopy suite and laid in the left lateral decubitus position. An Olympus gastroscope was passed along the posterior oropharynx down to the distal esophagus where the squamocolumnar junction was encountered at 35 cm from the incisors. The stomach was entered and food was found within in the stomach. Additional findings are listed below. The first through third portion of the duodenum was examined and unremarkable. Retroflexion of the scope confirmed Hill grade 1+ lower esophageal valve. The squamocolumnar junction demostrated no LA grade A erosive esophagitis. The stomach was desufflated. The patient tolerated the procedure well. FINDINGS: Squamocolumnar junction 35 cm from the incisors. Diaphragmatic hiatus at 35 cm. No recurrent hiatal hernia Hill grade 1+ lower esophageal valve. No LA grade A erosive esophagitis. No active duodenitis. No active gastritis within the stomach Retained food within the stomach RECOMMENDATIONS: Upper endoscopy as needed. May benefit from swallow evaluation Referral to ENT may be of benefit Plan - Discharge Summary New Discharge Prescriptions: No Action Atorvastatin [Lipitor] 10 mg PO DAILY Captopril [Capoten] 50 mg PO BID Omeprazole [PriLOSEC] 40 mg PO QAM Meclizine [Antivert] 25 mg PO DAILY Loratadine [Claritin] 10 mg PO DAILY Donepezil HCl [Aricept] 5 mg PO DAILY Aspirin [Adult Low Dose Aspirin EC] 81 mg PO DAILY Acetaminophen [Tylenol Extra Strength] 1,000 mg PO BID Sertraline [Zoloft] 100 mg PO DAILY Fexofenadine/Pseudoephedrine [Wendy-D 24 Hour Tablet] mg PO Q24HR amLODIPine [Norvasc] 10 mg PO QAM Discharge Medication List Acetaminophen [Tylenol Extra Strength] 1,000 mg PO BID 06/08/17 [History] Aspirin [Adult Low Dose Aspirin EC] 81 mg PO DAILY 06/08/17 [History] Atorvastatin [Lipitor] 10 mg PO DAILY 06/08/17 [History] Captopril [Capoten] 50 mg PO BID 06/08/17 [History] Donepezil HCl [Aricept] 5 mg PO DAILY 06/08/17 [History] Loratadine [Claritin] 10 mg PO DAILY 06/08/17 [History] Meclizine [Antivert] 25 mg PO DAILY 06/08/17 [History] Omeprazole [PriLOSEC] 40 mg PO QAM 06/08/17 [History] Sertraline [Zoloft] 100 mg PO DAILY 10/10/17 [History] Fexofenadine/Pseudoephedrine [Wendy-D 24 Hour Tablet] mg PO Q24HR 10/15/17 [ History] amLODIPine [Norvasc] 10 mg PO QAM 10/15/17 [History]
[2017-10-15 10:56] VITALS: BP 144/74; PULSE 66
== END 2017-10-15 11:35 | disposition home or self-care (01) ==
LOC: ORWHC2ENDO 09:27
PROVIDERS: ATTEND Surgery Plastic and Reconstructive Surgery
DX: K21.9 Gastro-esophageal reflux disease without esophagitis (principal); I10 Essential (primary) hypertension; E78.5 Hyperlipidemia, unspecified; M19.90 Unspecified osteoarthritis, unspecified site; Z86.73 Personal history of transient ischemic attack (TIA), and cerebral infarction without residual deficits; I25.2 Old myocardial infarction; F32.9 Major depressive disorder, single episode, unspecified; F41.9 Anxiety disorder, unspecified; Z82.3 Family history of stroke; Z79.82 Long term (current) use of aspirin; Z79.899 Other long term (current) drug therapy; Z88.0 Allergy status to penicillin; Z88.2 Allergy status to sulfonamides; Z88.1 Allergy status to other antibiotic agents; F03.90 Unspecified dementia, unspecified severity, without behavioral disturbance, psychotic disturbance, mood disturbance, and anxiety; M41.9 Scoliosis, unspecified
CPT/HCPCS: 43235; J2001; J2704

== ENCOUNTER → 2018-01-14 | Day surgery (SDC) | payer MEDICARE ==
--- NOTE | 2018-01-13 17:22 | P.GSHP ---
History of Present Illness H&P Date: 01/14/18 CHIEF COMPLAINT: GERD and colon screen HISTORY OF PRESENT ILLNESS: The patient is a 87-year-old female who presents with gastroesophageal reflux disease and need for colon screen. Upper and lower endoscopy were offered for further evaluation and management. PAST MEDICAL HISTORY: Please see list. PAST SURGICAL HISTORY: Please see list. MEDICATIONS: Please see list. ALLERGIES: Please see list. SOCIAL HISTORY: No illicit drug use FAMILY HISTORY: No reports of Crohn disease or ulcerative colitis. REVIEW OF ORGAN SYSTEMS: CONSTITUTIONAL: No reports of fevers or chills. GI: Denies any blood in stools or constipation. PHYSICAL EXAM: VITAL SIGNS: Stable GENERAL: Well-developed pleasant in no acute distress. HEENT: No scleral icterus. Extraocular movements grossly intact. Moist buccal mucosa. NECK: Supple without lymphadenopathy. CHEST: Unlabored respirations. Equal bilateral excursions. CARDIOVASCULAR: Regular rate and rhythm. Distal 2+ pulses. ABDOMEN: Soft, nondistended. MUSCULOSKELETAL: No clubbing, cyanosis, or edema. ASSESSMENT: 1. Gastroesophageal reflux disease 2. Colon screen. PLAN: 1. 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 History of Any Multi-Drug Resistant Organisms: None Reported Past Surgical History: Section, Tubal Ligation Additional Past Surgical History / Comment(s): Hiatal hernia repair, grisel cataract sx, EGD. Past Anesthesia/Blood Transfusion Reactions: No Reported Reaction Additional Past Anesthesia/Blood Transfusion Reaction / Comment(s): No hx blood transfusion Past Psychological History: Anxiety, Depression Additional Psychological History / Comment(s): Dementia Smoking Status: Never smoker Past Alcohol Use History: None Reported Past Drug Use History: None Reported - Past Family History Mother Family Medical History: Cancer Additional Family Medical History / Comment(s): pancreatic cancer Father Family Medical History: CVA/TIA Medications and Allergies Home Medications Medication Instructions Recorded Confirmed Type Acetaminophen [Tylenol Extra 1,000 mg PO BID 06/08/17 10/15/17 History Strength] Aspirin [Adult Low Dose Aspirin EC] 81 mg PO DAILY 06/08/17 10/10/17 History Atorvastatin [Lipitor] 10 mg PO DAILY 06/08/17 10/15/17 History Captopril [Capoten] 50 mg PO BID 06/08/17 10/15/17 History Donepezil HCl [Aricept] 5 mg PO DAILY 06/08/17 10/15/17 History Loratadine [Claritin] 10 mg PO DAILY 06/08/17 10/15/17 History Meclizine [Antivert] 25 mg PO DAILY 06/08/17 10/15/17 History Omeprazole [PriLOSEC] 40 mg PO QAM 06/08/17 10/15/17 History Sertraline [Zoloft] 100 mg PO DAILY 10/10/17 10/15/17 History Fexofenadine/Pseudoephedrine mg PO Q24HR 10/15/17 History [Wendy-D 24 Hour Tablet] amLODIPine [Norvasc] 10 mg PO QAM 10/15/17 10/15/17 History Allergies Allergy/AdvReac Type Severity Reaction Status Date / Time clindamycin Allergy SOB,dizzyne Verified 10/15/17 09:49 ss Penicillins Allergy SOB Verified 10/15/17 09:49 Sulfa (Sulfonamide Allergy SOB Verified 10/15/17 09:49 Antibiotics)
[~2018-01-14] MED LIST changes: +LACTATED RINGERS 1,000 ML IV ONE; -LACTATED RINGERS 1,000 ML IV SCH; +LIDOCAINE 1% 20 ML VIAL (10MG/ML) FOR IV START INTRADERMA ONE; +PROPOFOL 10 MG/ML 20 ML VIAL IV ONE
[2018-01-14 12:19] VITALS: TEMP 98.7
--- NOTE | 2018-01-14 13:22 | P.PCN ---
Date of Procedure: 01/14/18 Description of Procedure: PREOPERATIVE DIAGNOSIS: Personal history of colon polyps POSTOPERATIVE DIAGNOSIS: Personal history of colon polyps Severe diverticulosis OPERATION: Colonoscopy to the sigmoid colon. SURGEON: Alisa Rosario MD. ANESTHESIA: MAC. INDICATIONS: The patient is a 87-year-old female who presents with history of colon polyps. Her last colonoscopy was 5 years ago. Benefits and risks were described and informed consent was obtained. DESCRIPTION OF PROCEDURE: The patient had undergone Gatorade, MiraLAX and Dulcolax prep. She had been brought into the operating room and laid in the left lateral decubitus position. After adequate intravenous sedation, the rectum was examined with 2% lidocaine jelly. External hemorrhoids were encountered. The rectal tone was loose. No lesions were palpated in the rectal vault. An Olympus colonoscope was advanced along the rectum to a very tortuous sigmoid colon with moderate to severe diverticulosis. The scope was then exchanged for a pediatric colonoscope. Despite multiple maneuvers, the sigmoid colon had severe tortuosity preventing further advancement of scope. The scope was passed to 30 cm from the anal verge. No evidence of polyps were identified. As the patient posed high risk for perforation with persistence of the procedure, the procedure was discontinued. The colon was desufflated. The patient had tolerated the procedure well. Withdrawal time was over 6 minutes. FINDINGS: Tortuous sigmoid colon with stricture preventing further advancement of the scope. External prolapsed hemorrhoids. Scope advanced to sigmoid colon at 30 cm. No arteriovenous malformations. No adenomatous polyps. No focal colitis. Severe sigmoid diverticulosis RECOMMENDATIONS: Completion of colonoscopy evaluation with barium enema. Plan - Discharge Summary New Discharge Prescriptions: No Action Atorvastatin [Lipitor] 10 mg PO DAILY Captopril [Capoten] 50 mg PO BID Omeprazole [PriLOSEC] 40 mg PO QAM Meclizine [Antivert] 25 mg PO DAILY Donepezil HCl [Aricept] 5 mg PO DAILY Aspirin [Adult Low Dose Aspirin EC] 81 mg PO DAILY Acetaminophen [Tylenol Extra Strength] 1,000 mg PO BID Sertraline [Zoloft] 100 mg PO DAILY amLODIPine [Norvasc] 10 mg PO QAM Ipratropium [place] [Ipratropium [place] 0.03%] 2 sprays EA NOSTRIL DAILY Etodolac [Lodine] 1 tab PO DAILY Discharge Medication List Acetaminophen [Tylenol Extra Strength] 1,000 mg PO BID 06/08/17 [History] Aspirin [Adult Low Dose Aspirin EC] 81 mg PO DAILY 06/08/17 [History] Atorvastatin [Lipitor] 10 mg PO DAILY 06/08/17 [History] Captopril [Capoten] 50 mg PO BID 06/08/17 [History] Donepezil HCl [Aricept] 5 mg PO DAILY 06/08/17 [History] Meclizine [Antivert] 25 mg PO DAILY 06/08/17 [History] Omeprazole [PriLOSEC] 40 mg PO QAM 06/08/17 [History] Sertraline [Zoloft] 100 mg PO DAILY 10/10/17 [History] amLODIPine [Norvasc] 10 mg PO QAM 10/15/17 [History] Etodolac [Lodine] 1 tab PO DAILY 01/14/18 [History] Ipratropium [place] [Ipratropium [place] 0.03%] 2 sprays EA NOSTRIL DAILY [History] Follow up Appointment(s)/Referral(s): Alisa Rosario MD [STAFF PHYSICIAN] - 01/22/18 ([place]) Patient Instructions/Handouts: Diverticulosis (DC), Gastroesophageal Reflux Disease (DC), Diverticulosis Diet (GEN) Activity/Diet/Wound Care/Special Instructions: Colonoscopy as needed Discharge Disposition: HOME SELF-CARE
--- NOTE | 2018-01-14 13:24 | P.PCN ---
Date of Procedure: 01/14/18 Description of Procedure: PREOPERATIVE DIAGNOSIS: Gastroesophageal reflux disease. History of hiatal hernia repair Epigastric abdominal pain Dysphagia POSTOPERATIVE DIAGNOSIS: Gastroesophageal reflux disease. History of hiatal hernia repair Epigastric abdominal pain Dysphagia Presbyesophagus OPERATION: Esophagogastroduodenoscopy with biopsies along antrum. SURGEON: Alisa Rosario MD ANESTHESIA: MAC. INDICATIONS: The patient is a 87-year-old female who presents with a history of reflux disease. Benefits and risks of the procedure were described. Informed consent was obtained. DESCRIPTION: The patient was brought into the endoscopy suite and laid in the left lateral decubitus position. An Olympus gastroscope was passed along the posterior oropharynx down to the distal esophagus where the squamocolumnar junction was encountered at 33 cm from the incisors. The stomach was entered and no bile reflux was found. Additional findings are listed below. Biopsies with cold forceps were obtained of the antrum. The first through third portion of the duodenum was examined and unremarkable. Retroflexion of the scope confirmed Hill grade 2 lower esophageal valve. The squamocolumnar junction demonstrated no LA grade A erosive esophagitis. The stomach was desufflated. The patient tolerated the procedure well. FINDINGS: Squamocolumnar junction 33 cm from the incisors. Diaphragmatic hiatus at 35 cm. Hiatal hernia, 2 cm Hill grade 2 lower esophageal valve. No LA grade A erosive esophagitis. Moderate tertiary contractions consistent with presbyesophagus No active duodenitis. Chronic gastritis Hypertensive pylorus RECOMMENDATIONS: Upper endoscopy as needed.
[2018-01-14 13:40] VITALS: BP 144/72; PULSE 68; RESP 18
--- NOTE | 2018-01-14 17:56 | XR ---
EXAMINATION TYPE: XR abdomen 1V DATE OF EXAM: 01/14/2018 CLINICAL DATA: 87-year-old female failed colonoscopy, [facility] COMPARISON: None FINDINGS: Surgical clips at the GE junction. Sutures along the lower midline. Coils from prior mesh repair near the left inguinal region. Prominent retained colonic air is present. IMPRESSION: Residual prominent colonic air after incomplete colonoscopy.
--- NOTE | 2018-01-17 08:34 | FL ---
EXAMINATION TYPE: FL barium enema DATE OF EXAM: 01/15/2018 CLINICAL HISTORY: 87-year-old female severe diverticulosis, incomplete colonoscopy TECHNIQUE: A double contrast barium enema study is performed. Total fluoroscopy time: 3 minutes 37 seconds. Total images: 53. COMPARISON: None. FINDINGS: Scheduling Administrator view of the abdomen shows overall non-obstructive bowel gas pattern. Suture material along the anterior lower abdominal midline and coils from prior mesh repair along the left lower quadrant. Edgar gical clips at the GE junction. The residual colonic air is improved from prior. Degenerated levoconv ex scoliosis. There is significant tortuosity of the colon limiting the ability to empty the colon of excessive con trast after initial filling. At least moderate mid sigmoid diverticulosis is noted. Redundancy limits assessment. No obvious mass or constricting lesion within the sigmoid colon. There is further limitation secondary to some retained adherent stool material in the transverse colo n. Allowing for these limitations, no evidence of any mass or polyp, obstructing or constricting lesi on throughout the colon. The appendix and terminal ileum were not opacified. IMPRESSION: 1. Some limitations due to colonic redundancy, especially of the sigmoid colon and some residual adhe rent stool material along the transverse colon. 2. At least moderate mid sigmoid diverticulosis. 3. Within these limitations, no suspicious mass, polyp, or obstructing lesion is seen.
== END | disposition home or self-care (01) ==
LOC: ORWHC2ENDO 11:03
PROVIDERS: ATTEND Surgery Plastic and Reconstructive Surgery
DX: Z12.11 Encounter for screening for malignant neoplasm of colon (principal); K21.9 Gastro-esophageal reflux disease without esophagitis; K29.40 Chronic atrophic gastritis without bleeding; K29.50 Unspecified chronic gastritis without bleeding; K57.90 Diverticulosis of intestine, part unspecified, without perforation or abscess without bleeding; K22.8 Other specified diseases of esophagus; K44.9 Diaphragmatic hernia without obstruction or gangrene; K64.4 Residual hemorrhoidal skin tags; Q43.8 Other specified congenital malformations of intestine; Z86.010 Personal history of colon polyps; I69.359 Hemiplegia and hemiparesis following cerebral infarction affecting unspecified side; F03.90 Unspecified dementia, unspecified severity, without behavioral disturbance, psychotic disturbance, mood disturbance, and anxiety; Z85.828 Personal history of other malignant neoplasm of skin; E78.5 Hyperlipidemia, unspecified; I10 Essential (primary) hypertension; M19.90 Unspecified osteoarthritis, unspecified site; F41.9 Anxiety disorder, unspecified; F32.9 Major depressive disorder, single episode, unspecified; Z79.82 Long term (current) use of aspirin; Z79.899 Other long term (current) drug therapy; Z88.1 Allergy status to other antibiotic agents; Z88.0 Allergy status to penicillin; Z88.2 Allergy status to sulfonamides
CPT/HCPCS: 88305; 74018; 43239; J2704; G0105; 45330; 74270

== ENCOUNTER → 2018-01-15 | Outpatient (CLI) | payer MEDICARE | END | disposition home or self-care (01) | LOC: RADFLWHC 09:02 | PROVIDERS: ATTEND Surgery Plastic and Reconstructive Surgery | DX: Z53.9 Procedure and treatment not carried out, unspecified reason (principal) ==

== ENCOUNTER 2018-10-24 10:28 | Day surgery (SDC) | payer MEDICARE ==
[2018-10-21 11:25] VITALS: BMI 24.2
--- NOTE | 2018-10-24 07:31 | P.GSHP ---
History of Present Illness H&P Date: 10/24/18 CHIEF COMPLAINT: Cholecystitis HISTORY OF PRESENT ILLNESS: The patient is a 87-year-old female who presents with history of epigastric including right upper quadrant abdominal pain. She underwent diagnostic studies for her gallbladder. Separately her clinical picture was consistent with cholecystitis. Now she presents for surgical intervention. PAST MEDICAL HISTORY: Please see list PAST SURGICAL HISTORY: Please see list MEDICATIONS: Please see list ALLERGIES: Denies. SOCIAL HISTORY: No illicit drug use or recent tobacco use FAMILY HISTORY: Pertinent for gallbladder disease REVIEW OF ORGAN SYSTEMS: CONSTITUTIONAL: No reports of fevers or chills. PHYSICAL EXAM: VITAL SIGNS: Afebrile vital signs stable GENERAL: Well-developed pleasant in no acute distress. HEENT: No scleral icterus. Extraocular movements grossly intact. Moist buccal mucosa. NECK: Supple without lymphadenopathy. CHEST: Unlabored respirations. Equal bilateral excursions. CARDIOVASCULAR: Regular rate regular rhythm rhythm. Distal 2+ pulses. ABDOMEN: Soft, nondistended. Tender along the epigastrium and right upper quadrant. MUSCULOSKELETAL: No clubbing, cyanosis, or edema. NEURO: Cranial nerves II to XII within normal limits. No focal or lateralizing signs. PSYCH: Alert and oriented to person, place and time. SKIN: Well-perfused good skin turgor. ASSESSMENT: 1. Epigastric and right upper quadrant abdominal pain 2. Chronic cholecystitis 3. Symptomatic gallstones. PLAN: 1. Will need a robotic cholecystectomy possible open. Benefits and risks were described. 2. Heparin for DVT prophylaxis 5000 units. 3. Antibiotic prophylaxis. 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 "twisted bowel", IBS History of Any Multi-Drug Resistant Organisms: None Reported Past Surgical History: Section, Hernia Repair, Tubal Ligation Additional Past Surgical History / Comment(s): Hiatal hernia repair, grisel cataract sx, EGD. inguinal hernia repair Past Anesthesia/Blood Transfusion Reactions: No Reported Reaction Additional Past Anesthesia/Blood Transfusion Reaction / Comment(s): No hx blood transfusion, "thick phlegm comes up in throat when she lays down". Smoking Status: Never smoker - Past Family History Mother Family Medical History: Cancer Additional Family Medical History / Comment(s): pancreatic cancer Father Family Medical History: CVA/TIA Daughter(s) Family Medical History: Cancer Additional Family Medical History / Comment(s): breast Son(s) Family Medical History: Cancer Additional Family Medical History / Comment(s): prostate Medications and Allergies Home Medications Medication Instructions Recorded Confirmed Type Acetaminophen [Tylenol Extra 1,000 mg PO BID PRN 06/08/17 10/21/18 History Strength] Atorvastatin [Lipitor] 10 mg PO HS 06/08/17 10/21/18 History Captopril [Capoten] 50 mg PO BID 06/08/17 10/21/18 History Meclizine [Antivert] 25 mg PO DAILY 06/08/17 10/21/18 History Omeprazole [PriLOSEC] 40 mg PO QAM 06/08/17 10/21/18 History Sertraline [Zoloft] 100 mg PO DAILY 10/10/17 10/21/18 History Curamin 1 tab PO TID 10/21/18 10/21/18 History Donepezil [Aricept] 10 mg PO HS 10/21/18 10/21/18 History Famotidine [Pepcid] 20 mg PO 1800,2200 10/21/18 10/21/18 History Multivit-Min/FA/Lycopen/Lutein 1 each PO DAILY 10/21/18 10/21/18 History [Centrum Silver Tablet] amLODIPine [Norvasc] 2.5 - 5 mg PO DAILY 10/21/18 10/21/18 History Allergies Allergy/AdvReac Type Severity Reaction Status Date / Time clindamycin Allergy SOB,dizzy Verified 10/21/18 11:02 Penicillins Allergy Unknown Verified 10/21/18 11:01 Sulfa (Sulfonamide Allergy Unknown Verified 10/21/18 11:01 Antibiotics)
[~2018-10-24 10:28] MED LIST changes: +DEXAMETHASONE SOD PHOSPHATE 10 MG/ML 1 ML VIAL IV ONE; +HEPARIN SODIUM,PORCINE 5,000 UNIT/ML 1 ML VIAL SQ ONE; +INDOCYANINE GREEN 25 MG VIAL IV STA; -LACTATED RINGERS 1,000 ML IV ONE; +LACTATED RINGERS 1,000 ML IV SCH; -LIDOCAINE 1% 20 ML VIAL (10MG/ML) FOR IV START INTRADERMA ONE; +LIDOCAINE 1% 20 ML VIAL (10MG/ML) FOR IV START INTRADERMA PRN; +ONDANSETRON 4 MG/2 ML VIAL IVP ONE; +ONDANSETRON 4 MG/2 ML VIAL IVP PRN; -PROPOFOL 10 MG/ML 20 ML VIAL IV ONE; +Pre Op ABX Message 1 EACH MISC MISCELLANE ONE; +ceFAZolin IN SWFI 2 GM/20 ML SYRINGE IVP ONE
[2018-10-24 11:28] VITALS: TEMP 98.3
[2018-10-24 11:32] LABS: Basophils % (A) 0 %; Eosinophils # (A) 0.2 k/uL (0-0.7); Eosinophils % (A) 3 %; HCT 39.3 % (34.0-46.0); HGB 12.1 gm/dL (11.4-16.0); Lymphocytes # (A) 1.4 k/uL (1.0-4.8); Lymphocytes % (A) 22 %; MCH 30.4 pg (25.0-35.0); MCHC 30.8 g/dL (31.0-37.0); MCV 98.5 fL (80.0-100.0); Mean Platelet Volume 7.2; Monocytes # (A) 0.4 k/uL (0-1.0); Monocytes % (A) 6 %; Neutrophils # (A) 4.3 k/uL (1.3-7.7); Neutrophils % (A) 66 %; Platelet Count 254 k/uL (150-450); RBC 3.99 m/uL (3.80-5.40); RDW 14.5 % (11.5-15.5); WBC 6.4 k/uL (3.8-10.6)
[2018-10-24 11:44] LABS: Calcium 9.2 mg/dL (8.4-10.2); Potassium 4.5 mmol/L (3.5-5.1); Total Bilirubin 0.4 mg/dL (0.2-1.3); Total Protein 6.9 g/dL (6.3-8.2)
[2018-10-24] MEDS ORDERED: METOCLOPRAMIDE 5 MG/ML 2 ML VIAL IVP ONE (11:44)
[2018-10-24] MEDS ORDERED: LIDOCAINE 1%-EPI 1:100,000 20 ML VIAL SQ ONE (12:25)
[2018-10-24] MEDS ORDERED: ESMOLOL 100 MG/10 ML VIAL ONE (12:38)
[2018-10-24] MEDS ORDERED: LIDOCAINE 1% INJ 10MG/ML (20 ML MDV) ONE (12:38)
[2018-10-24] MEDS ORDERED: ROCURONIUM BROMIDE 10 MG/ML 10 ML VIAL IV ONE (12:38)
[2018-10-24] MEDS ORDERED: METOPROLOL TARTRATE 5 MG/5 ML VIAL IVP ONE (12:38)
[2018-10-24] MEDS ORDERED: fentaNYL (PF) 50 MCG/ML 2 ML AMP ONE (12:38)
[2018-10-24] MEDS ORDERED: INDOCYANINE GREEN 25 MG VIAL IV ONE (12:38)
[2018-10-24] MEDS ORDERED: SUCCINYLCHOLINE CHLORIDE 100 MG/5 ML SYR IV ONE (12:38)
[2018-10-24] MEDS ORDERED: PROPOFOL 10 MG/ML 20 ML VIAL IV ONE (12:38)
[2018-10-24] MEDS ORDERED: GLYCOPYRROLATE 0.2 MG/ML 2 ML VIAL ONE (12:38)
[2018-10-24] MEDS ORDERED: LACTATED RINGERS 1,000 ML IV ONE (13:43)
[2018-10-24] MEDS: MORPHINE SULFATE 2 MG/ML SYRINGE IV PRN ×3 (13:55→14:30)
--- NOTE | 2018-10-24 13:57 | P.OP ---
Date of Procedure: 10/24/18 Description of Procedure: DESCRIPTION OF PROCEDURE(S): SURGEON: CLAUDIA ROSARIO MD SUPERVISORY INVESTIGATIVE SPECIALIST: Wendy Alas PREOPERATIVE DIAGNOSES: 1. Chronic cholecystitis 2. Right upper quadrant abdominal pain 3. History of previous Calos fundoplasty 4. Seizure disorder 5. Alzheimer's dementia 6. Depression 7. Vertigo 8. Dysphagia 9. Ineffective esophageal motility 10. Epigastric abdominal pain 11. Intractable nausea and vomiting 12. Weakness 13. Iron deficiency anemia 14. Hyperlipidemia 15. Diffuse osteoarthritis 16. Hypertensive heart disease POSTOPERATIVE DIAGNOSES: 1. Chronic cholecystitis 2. Right upper quadrant abdominal pain 3. History of previous Calos fundoplasty 4. Seizure disorder 5. Alzheimer's dementia 6. Depression 7. Vertigo 8. Dysphagia 9. Ineffective esophageal motility 10. Epigastric abdominal pain 11. Intractable nausea and vomiting 12. Weakness 13. Iron deficiency anemia 14. Hyperlipidemia 15. Diffuse osteoarthritis 16. Hypertensive heart disease OPERATION: Robotic-assisted da Elisabeth Xi laparoscopic cholecystectomy, multiport with FIREFLY ESTIMATED BLOOD LOSS: 5 mL. SPECIMENS REMOVED: Gallbladder. COMPLICATIONS: None. OPERATIVE FINDINGS: 1. Chronic cholecystitis 2. Console time 19 minutes INDICATIONS: The patient is a 87-year-old female who presents with cholelcystitis. Surgical intervention with a laparoscopic cholecystectomy was described at length including injury to the biliary tree, bleeding, infection, need for further surgery. Informed consent was obtained. Robotic assisted laparoscopic approach was described. Benefits and risks of the procedure including but not limited to bleeding, infection, injury to the biliary tree was described. Informed consent was obtained. DESCRIPTION OF PROCEDURE: Patient was brought to the operating room, placed in supine position. After general induction, the abdomen had been prepped and draped in standard sterile fashion. The robotic da Elisabeth XI system was primed. After a timeout protocol was performed, the patient had been prepped and draped in standard sterile fashion. The patient was injected with indocyanine green. A 5 mm 0 degrees laparoscopic trocar entry was performed along the left upper quadrant. The abdomen insufflated to 15 mmHg pressure which was tolerated well. Diagnostic laparoscopy demonstrated no injury to bowel viscera or mesentery. The liver surface was unremarkable. Next, two 8 mm robotic ports were placed along the right upper abdomen. The camera 8-mm port was maintained along the epigastrium. Another 8 mm port was placed along the left upper abdominal wall after exchanging the 5 mm port. Please note that the ports were placed at least 10 to 15 cm away from the target anatomy of the gallbladder. The robot was docked along the left lateral abdomen. The patient was repositioned in reverse Trendelenburg position. Using a grasper for arm 3, a grasper for arm 4, including hook cautery for arm 1, the robotic system was docked and primed as described. Instruments were interchanged by the wet process miller head assistant including hook cautery, Bovie cautery and clip appliers. I had sat at the console. The gallbladder fundus was retracted over the dome of the liver. Initial attention was brought to the infundibulum which was gently retracted in the inferior lateral approach. Using a grasper, the cystic duct including the cystic artery was carefully skeletonized. FIREFLY was used to identify the cystic artery and cystic structures. Large PLASTIC clips were used throughout the entire case. Using a clip sql report developer 2 clips were placed proximally, and 1 clip was placed distally along the cystic duct and then cauterized with the cautery. Again care was taken to avoid any injury to the biliary tree as the common bile duct was clearly visualized during this portion of dissection. Next, the cystic artery was similarly clipped and cauterized. Mild bleeding was identified along the liver surface at the falciform ligament and cauterized. Electro-Bovie cautery was used to remove the gallbladder from the hepatic fossa. Hemostasis was checked and found to be adequate. The robot was undocked. I re-scrubbed into the case. Using a 10 mm Endo Catch bag via the left upper quadrant incision, the specimen was removed from the abdominal cavity. All pneumoperitoneum instruments were evacuated from the abdominal cavity. The incisions were reapproximated using 4-0 Monocryl in an interrupted subcuticular fashion. Fascial defects were less than 8 mm in size. Please note along the trocar sites, local anesthetic was placed as a field block prior to insertion of all instruments. Liquid glue was applied to the skin. At the end of the procedure needle, sponge, and instrument count had been verified correct by the surgical appliances salesperson. The patient was transferred to postanesthesia care unit in stable condition. Intraoperative films were shared with the patient's family who were very pleased with the level of care. Plan - Discharge Summary Discharge Rx Participant: Yes New Discharge Prescriptions: New Bisacodyl [Dulcolax] 5 mg PO DAILY PRN #10 tablet. PRN Reason: Constipation Simethicone 40 mg/0.6 ml Drops [Mylicon Drops] 40 mg PO PCHS PRN #30 ml PRN Reason: Gas Acetaminophen [Tylenol] 325 mg PO Q4H #30 tab Ondansetron Odt [Zofran Odt] 4 mg PO Q8HR PRN #9 tab PRN Reason: Nausea Discontinued Omeprazole [PriLOSEC] 40 mg PO QAM Famotidine [Pepcid] 20 mg PO 1800,2200 Curamin 1 tab PO TID No Action Atorvastatin [Lipitor] 10 mg PO HS Captopril [Capoten] 50 mg PO BID Meclizine [Antivert] 25 mg PO DAILY Acetaminophen [Tylenol Extra Strength] 1,000 mg PO BID PRN PRN Reason: Pain Sertraline [Zoloft] 100 mg PO DAILY amLODIPine [Norvasc] 2.5 - 5 mg PO DAILY Donepezil [Aricept] 10 mg PO HS Multivit-Min/FA/Lycopen/Lutein [Centrum Silver Tablet] 1 each PO DAILY Discharge Medication List Acetaminophen [Tylenol Extra Strength] 1,000 mg PO BID PRN 06/08/17 [History] Atorvastatin [Lipitor] 10 mg PO HS 06/08/17 [History] Captopril [Capoten] 50 mg PO BID 06/08/17 [History] Meclizine [Antivert] 25 mg PO DAILY 06/08/17 [History] Sertraline [Zoloft] 100 mg PO DAILY 10/10/17 [History] Donepezil [Aricept] 10 mg PO HS 10/21/18 [History] Multivit-Min/FA/Lycopen/Lutein [Centrum Silver Tablet] 1 each PO DAILY 10/21/18 [History] amLODIPine [Norvasc] 2.5 - 5 mg PO DAILY 10/21/18 [History] Acetaminophen [Tylenol] 325 mg PO Q4H #30 tab 10/24/18 [Rx] Bisacodyl [Dulcolax] 5 mg PO DAILY PRN #10 tablet. 10/24/18 [Rx] Ondansetron Odt [Zofran Odt] 4 mg PO Q8HR PRN #9 tab 10/24/18 [Rx] Simethicone 40 mg/0.6 ml Drops [Mylicon Drops] 40 mg PO HS PRN #30 ml 10/24/18 [Rx] Follow up Appointment(s)/Referral(s): Claudia Rosario MD [STAFF PHYSICIAN] - 11/05/18 Patient Instructions/Handouts: Laparoscopic Cholecystectomy (DC), Low Fat Diet (ED) Activity/Diet/Wound Care/Special Instructions: August shower. No bathtub soaks until October 31. Low-fat diet until Sunday, October 28. No lifting over 10 pounds until October 31. Discharge Disposition: HOME SELF-CARE
[2018-10-24 14:24] VITALS: RESP 16
[2018-10-24] MEDS ORDERED: ACETAMINOPHEN TAB 325 MG TAB PO ONE (15:52)
[2018-10-24 15:57] VITALS: BP 167/70; PULSE 67
== END 2018-10-24 16:45 | disposition home or self-care (01) ==
LOC: OR 10:28
PROVIDERS: ATTEND Surgery Plastic and Reconstructive Surgery
DX: K81.1 Chronic cholecystitis (principal); G40.909 Epilepsy, unspecified, not intractable, without status epilepticus; G30.9 Alzheimer's disease, unspecified; F02.80 Dementia in other diseases classified elsewhere, unspecified severity, without behavioral disturbance, psychotic disturbance, mood disturbance, and anxiety; F32.9 Major depressive disorder, single episode, unspecified; K21.9 Gastro-esophageal reflux disease without esophagitis; E78.5 Hyperlipidemia, unspecified; M06.9 Rheumatoid arthritis, unspecified; I11.9 Hypertensive heart disease without heart failure; M19.90 Unspecified osteoarthritis, unspecified site; R42 Dizziness and giddiness; Z98.51 Tubal ligation status; Z85.828 Personal history of other malignant neoplasm of skin; Z98.42 Cataract extraction status, left eye; Z98.41 Cataract extraction status, right eye; Z79.899 Other long term (current) drug therapy; Z88.1 Allergy status to other antibiotic agents; Z88.0 Allergy status to penicillin; Z88.2 Allergy status to sulfonamides
CPT/HCPCS: 47562; 88304; 80053; 85025; J1644; J2765; J2405; J2001; J3010; J2270; J0330; J2704; J0690

== ENCOUNTER → 2020-06-30 | Outpatient (CLI) | payer MEDICARE ==
--- NOTE | 2020-06-30 11:00 | P.PAINCN ---
History of Present Illness - Reason for Consult Consult date: 06/30/20 - History of Present Illness This is a 89-year-old patient referred by Dr. Saldivar (neurologist) with a chief complaint of occipital pain in the left side. She has a past medical history of a stroke with an occipital infarct not on any bloodthinners. She notes that she has been having pain in her head and neck region on the left side for quite some time and it flared up about 4 months ago. Pain is located in the back of the head with occasional radiation to the vertex of the head. Pain is described as intermittent sharp and stabbing. Patient has ever had injections and had her neck for this type of thing is currently taking Tegretol 100 mg at night. Patient also complains of some bilateral knee pain. She notes that she has had steroid injections in her knees about 2 years ago which helped significantly. Currently her pain is 6 out of 10, at its worst a 9 out of 10, at its best a 4 out of 10. She is accompanied by her daughter who provides most of the history Patient denies adverse drug effects from medications. Patient also denies new- onset weakness, bowel/bladder incontinence, or any other signs or symptoms of cauda equina syndrome. There are no signs of acute intoxication, and no indications of medication diversion or overuse. In addition to above, 13-point review of systems is also negative for chest pain, shortness of breath, changes in vision, changes in hearing, new onset weakness, abdominal pain, diarrhea, extreme fatigue, malaise, fever, skin changes, homicidal or suicidal ideation, or bowel or bladder incontinence. Physical exam: Vital Signs: Reviewed in EMR GENERAL: elderly appearing, in no acute distress, has cane PSYCH: Mood and affect is appropriate. Awake, alert, and oriented SKIN: Skin color, texture, turgor normal, no rashes or lesions HEENT: Normocephalic, atraumatic. EOM intact CV: No pedal edema, very dry skin with some scabs over the bilateral shins RESP: Respirations are unlabored, no audible wheezing GI: Abdomen non-distended MUSCULOSKELETAL: Bilateral upper and lower extremity strength is normal and symmetric. No atrophy or tone abnormalities are noted. Neck: No pain to palpation over the cervical paraspinous muscles. Spurling negative, Axial Loading Test negative, Barajas's sign negative. Some pain with neck extension. No obvious deformity or signs of trauma. Normal cervical lordotic curve and normal cervical spine range of motion. TTP over WHITNEY and MARIAH regions. Patient's UE strength is relatively intact, effort limit given her age. No focal weakness Bilateral knee exam: no evidence of swelling or ecchymosis. TTP over lateral aspect of right knee and medial aspect of right knee. ROM limited in extension to around 60 degrees Gait: Gait is slow, walks with cane NEUR: Bilateral upper and lower extremity coordination and muscle stretch reflexes are physiologic and symmetric. Negative clonus. No loss of sensation is noted. Cranial nerves are grossly intact. Imaging: CT cervical spine 06/20 There is grade 1 spondylolisthesis of C4 anteriorly on C5. Diffuse disc height loss throughout the spine greatest at C5 6 and C6-C7. Also degenerative disc bulging at C5-C6 and C6-C7. Assessment: 1. Left occipital neuralgia 2. Bilateral primary OA of knees 3. Plan: - We'll proceed with left side occipital nerve block. - I ordered bilateral knee x-rays and we can perform a bilateral knee injections for her in the future if needed - If occipital nerve blocks do not work, we can consider cervical medial branch workup. - At this point I do not believe she requires any medication and she can continue taking her Tegretol. 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 "twisted bowel", IBS, "old persons esphagus" History of Any Multi-Drug Resistant Organisms: None Reported Past Surgical History: Section, Hernia Repair, Tubal Ligation Additional Past Surgical History / Comment(s): Hiatal hernia repair, grisel cataract sx, EGD. inguinal hernia repair Past Anesthesia/Blood Transfusion Reactions: No Reported Reaction Additional Past Anesthesia/Blood Transfusion Reaction / Comm: No hx blood transfusion, "thick phlegm comes up in throat when she lays down". Smoking Status: Never smoker - Past Family History Mother Family Medical History: Cancer Additional Family Medical History / Comment(s): pancreatic cancer Father Family Medical History: CVA/TIA Daughter(s) Family Medical History: Cancer Additional Family Medical History / Comment(s): breast Son(s) Family Medical History: Cancer Additional Family Medical History / Comment(s): prostate Medications and Allergies Home Medications Medication Instructions Recorded Confirmed Type Atorvastatin [Lipitor] 10 mg PO HS 06/08/17 06/29/20 History captopriL [Capoten] 50 mg PO BID 06/08/17 06/29/20 History Sertraline [Zoloft] 100 mg PO DAILY 10/10/17 06/29/20 History Donepezil [Aricept] 10 mg PO HS 10/21/18 06/29/20 History Multivit-Min/FA/Lycopen/Lutein 1 each PO DAILY 10/21/18 06/29/20 History [Centrum Silver Tablet] amLODIPine [Norvasc] 5 mg PO DAILY 10/21/18 06/29/20 History Ascorbic Acid [Vitamin C] 500 mg PO DAILY 06/29/20 06/29/20 History Celecoxib [CeleBREX] 200 mg PO DAILY 06/29/20 06/29/20 History Cholecalciferol (Vitamin D3) 125 mcg PO DAILY 06/29/20 06/29/20 History [Vitamin D3 (5000 Iu)] Cranberry Fruit Extract [Cranberry] 500 mg PO DAILY 06/29/20 06/29/20 History Curamin 1 tab PO TID 06/29/20 06/29/20 History Famotidine [Pepcid] 20 mg PO BID 06/29/20 06/29/20 History HYDROcodone/APAP 5-325MG [[place] 0.5 tab PO BID 06/29/20 06/29/20 History 5-325] Magnesium 250 mg PO DAILY 06/29/20 06/29/20 History Melatonin 10 mg PO HS PRN 06/29/20 06/29/20 History Milk Thistle 150 mg PO DAILY 06/29/20 06/29/20 History Dyke Xl 4 tab PO QAM 06/29/20 06/29/20 History Omeprazole 40 mg PO QAM 06/29/20 06/29/20 History Sucralfate [Carafate] 1 gm PO BID 06/29/20 06/29/20 History Vitamin B Complex 1 each PO DAILY 06/29/20 06/29/20 History carBAMazepine [TEGretol XR] 100 mg PO QAM 06/29/20 06/29/20 History Allergies Allergy/AdvReac Type Severity Reaction Status Date / Time clindamycin Allergy SOB,dizzy Verified 06/29/20 14:06 Penicillins Allergy Unknown Verified 06/29/20 14:06 Sulfa (Sulfonamide Allergy Unknown Verified 06/29/20 14:06 Antibiotics) PQRS Measure Charge Sheet PQRS Narrative: Smoking Status Never smoker Pain Intensity [Neck] 7 Hx Alcohol Use (MH) Yes Home Medications: Ambulatory Orders Atorvastatin [Lipitor] 10 mg PO HS 06/08/17 captopriL [Capoten] 50 mg PO BID 06/08/17 Sertraline [Zoloft] 100 mg PO DAILY 10/10/17 Donepezil [Aricept] 10 mg PO HS 10/21/18 Multivit-Min/FA/Lycopen/Lutein [Centrum Silver Tablet] 1 each PO DAILY 10/21/18 amLODIPine [Norvasc] 5 mg PO DAILY 10/21/18 Ascorbic Acid [Vitamin C] 500 mg PO DAILY 06/29/20 Celecoxib [CeleBREX] 200 mg PO DAILY 06/29/20 Cholecalciferol (Vitamin D3) [Vitamin D3 (5000 Iu)] 125 mcg PO DAILY 06/29/20 Cranberry Fruit Extract [Cranberry] 500 mg PO DAILY 06/29/20 Curamin 1 tab PO TID 06/29/20 Famotidine [Pepcid] 20 mg PO BID 06/29/20 HYDROcodone/APAP 5-325MG [[place] 5-325] 0.5 tab PO BID 06/29/20 Magnesium 250 mg PO DAILY 06/29/20 Melatonin 10 mg PO HS PRN 06/29/20 Milk Thistle 150 mg PO DAILY 06/29/20 Dyke Xl 4 tab PO QAM 06/29/20 Omeprazole 40 mg PO QAM 06/29/20 Sucralfate [Carafate] 1 gm PO BID 06/29/20 Vitamin B Complex 1 each PO DAILY 06/29/20 carBAMazepine [TEGretol XR] 100 mg PO QAM 06/29/20
== END ==
CPT/HCPCS: 99211

== ENCOUNTER 2020-07-06 09:09 | Day surgery (SDC) | payer MEDICARE ==
[2020-07-06 09:48] VITALS: TEMP 97.6
[2020-07-06] MEDS ORDERED: ROPIVACAINE 5MG/ML 20ML VIAL ONE (09:49)
[2020-07-06] MEDS ORDERED: methylPREDNISolone ACETATE 40 MG/ML 1 ML VIAL ONE (09:49)
--- NOTE | 2020-07-06 10:00 | P.PCN ---
Date of Procedure: 07/06/20 Procedure(s) Performed: Preoperative diagnoses= 1- Left Greater occipital neuralgia Postoperative diagnoses= same as preoperative diagnosis. Procedure= Left Greater occipital nerve block Anesthesia= local infiltration with the ropivacaine 0.5%, Estimated blood loss=minimal. Procedure indication= the patient had a history of severe chronic neck pain ,and headache, diagnosed with occipital neuralgia exam was positive for severe tenderness over the occipital nerve bilaterally, she will be a good candidate occipital nerve block, patient failed conservative management Procedure description= the patient was seen and identified in the preoperative holding area, risks and benefits and alternative of the procedure and possible complications discussed with the patient, and he agreed with the preceding, patient signed the consent, and vital signs were monitored and were stable throughout the procedure, patient was placed in the sitting position or table and the neck area was prepped and draped with a sterile fashion, vital signs were closely monitored during the procedure, 25-gauge needle advanced 1 inch lateral to the occipital protuberance on the left side, at the location of the left occipital nerve , then after negative aspiration for heme and CSF and there was no paresthesia during the injection, 6 ml of Robivacaine 0.5% and 30 mg of Depo-Medrol injected after negative aspiration, the needle removed. Patient tolerated the procedure well without any complication, The patient returned to supine position after the back was cleaned and a Band- Aid applied, the patient transported to recovery room in stable condition and he was monitored for 30 minutes before he was discharged home and then patient was reexamined before going home and patient was discharged in stable condition and patient will follow up with the pain clinic in a few weeks.
[2020-07-06 10:30] VITALS: BP 136/72; PULSE 71; RESP 14
== END 2020-07-06 10:49 | disposition home or self-care (01) ==
LOC: ORPAIN 09:09
PROVIDERS: ATTEND Specialist
DX: M54.81 Occipital neuralgia (principal); Z88.1 Allergy status to other antibiotic agents; Z88.0 Allergy status to penicillin; Z88.2 Allergy status to sulfonamides
CPT/HCPCS: 64405; J1030; J2795

== ENCOUNTER 2020-08-10 08:07 | Day surgery (SDC) | payer MEDICARE ==
[2020-07-26 12:41] VITALS: BMI 24.4
[2020-08-10 08:36] VITALS: PULSE 66; RESP 16; TEMP 98
[2020-08-10] MEDS ORDERED: LIDOCAINE 1% (10MG/ML) FOR IV START INTRADERMA ONE (08:40)
[2020-08-10] MEDS ORDERED: LACTATED RINGERS 1,000 ML IV ONE (08:40)
[2020-08-10] MEDS ORDERED: ROPIVACAINE 5MG/ML 20ML VIAL ONE (08:53)
[2020-08-10] MEDS ORDERED: DEXAMETHASONE SOD PHOSPHATE 10 MG/ML 1 ML VIAL ONE (08:53)
[2020-08-10] MEDS ORDERED: MIDAZOLAM 2 MG/2 ML VIAL ONE (08:53)
--- NOTE | 2020-08-10 09:13 | P.PCN ---
Date of Procedure: 08/10/20 Preoperative Diagnosis: Occipital neuralgia, and headaches Postoperative Diagnosis: Occipital neurologist, and headaches Procedure(s) Performed: Bilateral occipital nerve block Anesthesia: MAC (Versed 1 mg ) Surgeon: Isaac De La Fuente Estimated Blood Loss (ml): 0 IV fluids (ml): 100 Urine output (ml): 0 Pathology: none sent Condition: stable Disposition: PACU Description of Procedure: Indications for Procedure: The patient has been suffering from chronic headache, and occipital neuralgia. Procedure and Findings: The patient was seen and examined and written informed consent was obtained after explaining the risks, benefits and alternative of the procedure to the patient. As per physician request for anxiety IV was started in the preoperative holding area for sedation. The patient was positioned in the sitting position with the head slightly flexed and forehead rested on a pillow. By palpation, the external occipital protuberance and mastoid process were identified and mid point in between was located. The target point for greater occipital nerve was just medial to the occipital artery pulsation. The skin preparation was done with ChloraPrep X1 and sterile technique was observed throughout the procedure. A 25-guage, 1.5 inch needle was used for the procedure. A 25-gauge 1.5 inch needle was placed vertically downward, bony contact was obtained, negative aspiration was confirmed and 5 ml solution was injected. The needle was redirected little medially and laterally in a fanning fashion and addition medication was injected after negative aspiration. For each greater occipital nerve 5 ml of block s olution used. The block solution containing 0.5% preservative-free ropivacaine 9 mL + 10 mg of dexamethasone . The needle was removed, needle puncture sites were cleaned and pressure was applied. The patient tolerated the procedure very well. Disposition : The patient tolerated the procedure very well. The patient was transferred to the recovery room and remained stable until discharged home. The patient was given detailed discharge instructions for infection, bleeding, and increased pain at the injection site, and was advised to seek immediate medical attention should significant side effects develop. The patient will be scheduled with Pain Clinic within 4 weeks.
[2020-08-10 09:15] VITALS: BP 154/84
[2020-08-10] MEDS ORDERED: LACTATED RINGERS 1,000 ML IV SCH (09:15)
== END 2020-08-10 09:35 | disposition home or self-care (01) ==
LOC: ORPAIN 08:07
DX: M54.81 Occipital neuralgia (principal); K44.9 Diaphragmatic hernia without obstruction or gangrene; F03.90 Unspecified dementia, unspecified severity, without behavioral disturbance, psychotic disturbance, mood disturbance, and anxiety; K57.90 Diverticulosis of intestine, part unspecified, without perforation or abscess without bleeding; E11.9 Type 2 diabetes mellitus without complications; I10 Essential (primary) hypertension; Z88.1 Allergy status to other antibiotic agents; Z88.0 Allergy status to penicillin; Z88.2 Allergy status to sulfonamides
CPT/HCPCS: 64405; J2250; J1100; J2795

== ENCOUNTER 2020-09-11 16:27 | Inpatient (IN) | payer MEDICARE ==
[2020-09-11] MEDS ORDERED: NALOXONE 0.4 MG/ML 1 ML VIAL IV PRN (17:49)
--- NOTE | 2020-09-11 17:49 | ED ---
Fall HPI - General Chief Complaint: Fall Stated Complaint: L Femur Fx Time Seen by Provider: 09/11/20 16:58 Source: family (Daughter), EMS Mode of arrival: EMS - History of Present Illness Initial Comments: 89-year-old white female patient presents by EMS from [facility] with daughter. Patient had a fall on Sunday last week which was not witnessed but heard by family who went into the room and found patient on the floor on her left side. Patient has dementia and is difficult to determine the cause of the fall. Daughter states that patient was able to bear some weight and on Sunday she was trying to transfer from chair and fell again. Daughter states Sunday again was trying to get up out of the chair and was weak and was observed slumping to the ground. Patient has a left shortened and externally rotated leg. Diagnosed with femoral neck fracture from [facility]. Patient was transferred for surgical repair. Patient able to answer some questions but then starts to talk about trying to step children. Daughter at bedside states dementia is getting worse. MD Complaint: fall -: days(s) (7) Fall From: chair When Fall Occurred: recurrent falls (Fell last Sunday, again on Sunday, and slumped with weakness on Sunday to the ground) Fall Witnessed: no (First fall Sunday unwitnessed) Place Fall Occurred: home Loss of Consciousness: none Prolonged Down Time?: no Location: head (ecchymosis parietal) Context: history of frequent falls (increased weakness with left foot drag per daughter), other - Related Data Home Medications Medication Instructions Recorded Confirmed Atorvastatin [Lipitor] 10 mg PO HS 06/08/17 09/11/20 captopriL [Capoten] 50 mg PO BID 06/08/17 09/11/20 Sertraline [Zoloft] 150 mg PO DAILY 10/10/17 09/11/20 Donepezil [Aricept] 10 mg PO HS 10/21/18 09/11/20 Multivit-Min/FA/Lycopen/Lutein 1 tab PO DAILY 10/21/18 09/11/20 [Centrum Silver Tablet] amLODIPine [Norvasc] 5 mg PO DAILY 10/21/18 09/11/20 Celecoxib [CeleBREX] 200 mg PO DAILY 06/29/20 09/11/20 Cranberry Fruit Extract [Cranberry] 500 mg PO DAILY 06/29/20 09/11/20 Famotidine [Pepcid] 20 mg PO HS 06/29/20 09/11/20 Melatonin 10 mg PO HS PRN 06/29/20 09/11/20 Omeprazole 40 mg PO DAILY 06/29/20 09/11/20 carBAMazepine [TEGretol XR] 100 mg PO DAILY 06/29/20 09/11/20 Gabapentin [Neurontin] 100 mg PO DAILY 07/26/20 09/11/20 Sucralfate [Carafate] 1 gm PO BID 09/11/20 09/11/20 Allergies Allergy/AdvReac Type Severity Reaction Status Date / Time clindamycin Allergy SOB,dizzy Verified 09/11/20 17:54 Penicillins Allergy Unknown Verified 09/11/20 17:54 Sulfa (Sulfonamide Allergy Unknown Verified 09/11/20 17:54 Antibiotics) Review of Systems ROS Statement: Those systems with pertinent positive or pertinent negative responses have been documented in the HPI. ROS Other: All systems not noted in ROS Statement are negative. 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 "twisted bowel", IBS. History of Any Multi-Drug Resistant Organisms: None Reported Past Surgical History: Section, Hernia Repair, Tubal Ligation Additional Past Surgical History / Comment(s): Hiatal hernia repair, grisel cataract sx, EGD. inguinal hernia repair Past Anesthesia/Blood Transfusion Reactions: No Reported Reaction Additional Past Anesthesia/Blood Transfusion Reaction / Comment(s): No hx blood transfusion, "thick phlegm comes up in throat when she lays down". Past Psychological History: Anxiety, Depression Smoking Status: Never smoker Past Alcohol Use History: None Reported Past Drug Use History: None Reported - Past Family History Mother Family Medical History: Cancer Additional Family Medical History / Comment(s): pancreatic cancer Father Family Medical History: CVA/TIA Daughter(s) Family Medical History: Cancer Additional Family Medical History / Comment(s): breast Son(s) Family Medical History: Cancer Additional Family Medical History / Comment(s): prostate General Exam Limitations: no limitations, altered mental status (Dementia) General appearance: alert, in no apparent distress Head exam: Present: normocephalic, other (Ecchymosis noted to the parietal scalp) Eye exam: Present: normal appearance, PERRL, EOMI. Absent: scleral icterus, conjunctival injection, periorbital swelling ENT exam: Present: normal exam, normal oropharynx, mucous membranes moist, TM's normal bilaterally Neck exam: Present: normal inspection, full ROM. Absent: tenderness, meningismus, lymphadenopathy, thyromegaly Respiratory exam: Present: normal lung sounds bilaterally. Absent: respiratory distress, wheezes, rales, rhonchi, stridor, chest wall tenderness Cardiovascular Exam: Present: regular rate, normal rhythm, normal heart sounds. Absent: systolic murmur, diastolic murmur, rubs, gallop, clicks GI/Abdominal exam: Present: soft, normal bowel sounds. Absent: distended, tenderness, guarding, rebound, rigid Rectal exam: Present: deferred External exam: Present: other (Patient arrived with Sandhu catheter in place) Extremities exam: Present: normal capillary refill. Absent: tenderness, pedal edema, joint swelling, calf tenderness Left Hip exam: Present: tenderness, external rotation. Absent: full ROM, laceration, erythema Upper Leg exam: Present: tenderness, deformity (Shortened and externally rotated ). Absent: full ROM, swelling, ecchymosis Lower Leg exam: Present: normal inspection. Absent: tenderness, swelling Ankle exam: Present: normal inspection. Absent: ecchymosis, deformity Foot/Toe exam: Present: normal inspection. Absent: ecchymosis, deformity Neurovascular tendon exam: Present: no vascular compromise. Absent: pulse deficit, abnormal cap refill, extremity cold to touch, pallor Gait: not tested/not observed Back exam: Present: normal inspection. Absent: tenderness, rash noted Neurological exam: Present: alert, CN II-XII intact Psychiatric exam: Present: normal affect, normal mood Skin exam: Present: warm, dry, intact, normal color. Absent: rash, cyanosis, diaphoretic, erythema Course Vital Signs 09/11/20 16:44 Temperature 98.8 F Pulse Rate 79 Respiratory 18 Rate Blood Pressure 151/86 O2 Sat by Pulse 94 L Oximetry Medical Decision Making - Medical Decision Making Patient transferred from [facility] for surgical repair of a left femoral neck fracture. X-ray reports and labs sent with patient. Daughter at bedside. Spoke with Trisha from orthopedics, will admit to Dr. Barrett for possible surgery in AM. Case discussed with Dr. Mcmahon. - Lab Data Lab Results 09/11/20 Range/Units 18:11 Coronavirus (PCR) Not Detected (Not Detectd) Disposition Clinical Impression: Femoral neck fracture, Fall, Dementia Disposition: ADMITTED IP TO THIS HOSP Is patient prescribed a controlled substance at d/c from ED?: No Decision Date: 09/11/20 Decision Time: 18:01
[2020-09-11] MEDS ORDERED: MELATONIN 5 MG TABLET PO PRN (19:27)
[2020-09-11] MEDS ORDERED: HYDROcodone/APAP 7.5-325MG 1 EACH TAB PO PRN (19:53)
[2020-09-11] MEDS: DONEPEZIL 10 MG TAB PO SCH (20:15)
[2020-09-11] MEDS: SUCRALFATE 1 GM TAB PO SCH (20:15)
[2020-09-11] MEDS: ATORVASTATIN 10 MG TAB PO SCH (20:15)
[2020-09-11] MEDS ORDERED: FAMOTIDINE 20 MG TAB PO SCH (21:00)
[2020-09-11] MEDS ORDERED: ENOXAPARIN 40 MG/0.4 ML SYRINGE SQ SCH (22:00)
--- NOTE | 2020-09-11 22:27 | P.CONS ---
History of Present Illness - Reason for Consult Consult date: 09/11/20 Medical management Requesting physician: Vijay Barrett - Chief Complaint Left hip pain - History of Present Illness Consultation: This is a pleasant 89-year-old patient who follows with Dr. Yeager. Patient is Dr. Anderson is at the bedside who is patient's POA. Patient has significant dementia and can only give a sketchy history. 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 At the baseline patient is using a cane and walking was extremely limited. Sunday that is a week ago patient took a fall and nothing much was made out of it. Subsequently 2 days later patient had a fall again and this time the leg was felt to be externally rotated. Daughter was managing it conservatively at home and finally decided to bring them in to [facility]. Fracture of the left femur neck was confirmed. And patient was transferred down here for surgical intervention. Patient does not have any cardiac or pulmonary history. No chest pain or shortness of breath has been reported. No fever no chills no cough. Patient's appetite is okay. Review of systems Limited because patient herself cannot give a history. Other relevant history as above Past medical history to include: COPD, TIA, dementia, GERD, hyperlipidemia, hypertension, osteoarthritis, rheumatoid arthritis, skin cancer, hiatal hernia, brain bleeding 2012 with memory issues since then, tunnel vision, scoliosis, diverticulitis, IBS Social history: No history of smoking or alcohol. Lives with her daughter Monica was also D POA Physical examination: VITAL SIGNS: 98.8, 79, 18, 150/86, 94% room air GENERAL: BMI 25.3, laying in bed, awake a bit tired. EYES: Pupils equal. Conjunctiva normal. HEENT: External appearance of nose and ears normal, oral cavity grossly normal. NECK: JVD not raised; masses not palpable. HEART: First and second heart sounds are normal; no edema. LUNGS: Respiratory rate normal; clear to auscultation MUSCULAR skeletal: Evidence of severe OA especially in the hands. Left leg externally rotated.. ABDOMEN: Soft, nontender, liver spleen not palpable, no masses palpable. PSYCH: [Patient can tell her name. Not sure how or she is or why she is here.. NEUROLOGICAL: Cranial nerves grossly intact; no facial asymmetry, power and sensation grossly intact. LYMPHATICS: No lymph nodes palpable in the axilla and neck Investigations: [Labwork investigations from [facility]] WBC 10.8 hemoglobin 11.2 platelets 385 pro time 11 sodium 134 potassium 4.3 bun 15 creatinine 0.7 albumin 3.5 Computed tomography scan of the brain-chronic changes Computed tomography scan of lumbar spine showing T12 old compression fracture, left femur fracture EKG tracing personally reviewed by me-normal sinus rhythm with poor R-wave progression Computed tomography scan of the chest: Chronic fibrotic changes osteopenia Assessment and plan: -Left femur fracture with initial fall a week ago and the second fall 2 days following that. 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 Baseline walking a few steps with a cane -COPD in a nonsmoker Use albuterol when necessary -GERD Pepcid -Essential hypertension On Norvasc At 10 -Hyperlipidemia Continue Lipitor -Primary osteoarthritis multiple joints bilateral Use pain medications as needed -Chronic pulmonary fibrosis at the base of the lungs Follow clinically Perioperative cardiovascular risk assessment: Patient has advanced age and multiple comorbidities. Patient is rather frail. Patient does not have any active cardiac or pulmonary symptoms. No cardiac or pulmonary history is present. Patient does not need any further intervention. This is a relatively low blood loss surgery but given the patient's comorbidities patient is a moderate risk for surgery but no cardiac medications. This was discussed with the daughter the bedside. Questions were answered. Home medications to be resumed. Lovenox for DVT prophylaxis. thank you Dr. Barrett Past Medical History Past Medical History: Cancer, COPD, CVA/TIA, Dementia, GERD/Reflux, Hyperlipidemia, Hypertension, Osteoarthritis (OA), Rheumatoid Arthritis (RA) Additional Past Medical History / Comment(s): Hx hiatal hernia, skin CA, "brain bleed 2012" - memory issues since then, tunnel vision, vertigo, scoliosis, diverticulitis, muscle weakness-uses a cane or wheelchair, gets dizzy and balance problems throat muscles very weak-"thick phlegm comes up in throat when she lays down". "twisted bowel", IBS. History of Any Multi-Drug Resistant Organisms: None Reported Past Surgical History: Section, Hernia Repair, Tubal Ligation Additional Past Surgical History / Comment(s): Hiatal hernia repair, grisel cataract sx, EGD. inguinal hernia repair Past Anesthesia/Blood Transfusion Reactions: No Reported Reaction Additional Past Anesthesia/Blood Transfusion Reaction / Comm: No hx blood transfusion, "thick phlegm comes up in throat when she lays down". Past Psychological History: Anxiety, Depression Smoking Status: Never smoker Past Alcohol Use History: None Reported Past Drug Use History: None Reported - Past Family History Mother Family Medical History: Cancer Additional Family Medical History / Comment(s): pancreatic cancer Father Family Medical History: CVA/TIA Daughter(s) Family Medical History: Cancer Additional Family Medical History / Comment(s): breast Son(s) Family Medical History: Cancer Additional Family Medical History / Comment(s): prostate Medications and Allergies Home Medications Medication Instructions Recorded Confirmed Type Atorvastatin [Lipitor] 10 mg PO HS 06/08/17 09/11/20 History captopriL [Capoten] 50 mg PO BID 06/08/17 09/11/20 History Sertraline [Zoloft] 150 mg PO DAILY 10/10/17 09/11/20 History Donepezil [Aricept] 10 mg PO HS 10/21/18 09/11/20 History Multivit-Min/FA/Lycopen/Lutein 1 tab PO DAILY 10/21/18 09/11/20 History [Centrum Silver Tablet] amLODIPine [Norvasc] 5 mg PO DAILY 10/21/18 09/11/20 History Celecoxib [CeleBREX] 200 mg PO DAILY 06/29/20 09/11/20 History Cranberry Fruit Extract [Cranberry] 500 mg PO DAILY 06/29/20 09/11/20 History Famotidine [Pepcid] 20 mg PO HS 06/29/20 09/11/20 History Melatonin 10 mg PO HS PRN 06/29/20 09/11/20 History Omeprazole 40 mg PO DAILY 06/29/20 09/11/20 History carBAMazepine [TEGretol XR] 100 mg PO DAILY 06/29/20 09/11/20 History Gabapentin [Neurontin] 100 mg PO DAILY 07/26/20 09/11/20 History Sucralfate [Carafate] 1 gm PO BID 09/11/20 09/11/20 History Allergies Allergy/AdvReac Type Severity Reaction Status Date / Time clindamycin Allergy SOB,dizzy Verified 09/11/20 17:54 Penicillins Allergy Unknown Verified 09/11/20 17:54 Sulfa (Sulfonamide Allergy Unknown Verified 09/11/20 17:54 Antibiotics) Physical Exam Vitals: Vital Signs Temp Pulse Pulse Resp BP BP Pulse Ox 09/11/20 19:15 98.7 F 73 16 181/75 96 09/11/20 16:44 98.8 F 79 18 151/86 94 L Intake and Output 09/11/20 09/11/20 09/11/20 06:59 14:59 22:59 Output Total 100 Balance -100 Output: Urine 100 Uretheral (Sandhu) 100 Other: Weight 51.256 kg
[2020-09-12] MEDS: MELOXICAM 7.5 MG TAB PO SCH (07:26)
[2020-09-12] MEDS: SUCRALFATE 1 GM TAB PO SCH (07:27)
[2020-09-12] MEDS: MULTIVITAMINS, THERA 1 EACH TAB PO SCH (07:27)
[2020-09-12] MEDS: GABAPENTIN 100 MG CAP PO SCH (07:27)
[2020-09-12] MEDS: PANTOPRAZOLE 40 MG TABLET PO SCH (07:27)
[2020-09-12] MEDS: amLODIPine 5 MG TAB PO SCH (07:27)
[2020-09-12] MEDS: SERTRALINE 50 MG TAB PO SCH (07:27)
[2020-09-12] MEDS: carBAMazepine 100 MG TAB.ER.12H PO SCH (07:27)
--- NOTE | 2020-09-12 07:51 | P.HPOR ---
History of Present Illness H&P Date: 09/12/20 This is an 89-year-old female who is admitted for left hip fracture. Patient's past medical history is significant for dementia and she is a poor historian. Daughter is present at bedside to give history. Reportedly, the patient had a fall 1 week ago, but at that point was able to bear weight on both legs and stand. The patient fell again 2 days later when she tried to get up in the middle of the night without help. It was then noted that her left leg was externally rotated. The patient was then evaluated at [facility] emergency room where x-rays revealed left femoral neck fracture. Patient was then transferred to [facility] for further management. Daughter states that the patient normally walks with a cane, but lately has had more difficulty with ambulating. Patient's past medical history significant for COPD, TIA, GERD, hyperlipidemia, hypertension, dementia, rheumatoid arthritis, osteoarthritis, skin cancer, hiatal hernia, history of brain bleed with memory loss, tunnel vision, scoliosis, diverticulitis and IBS. Patient lives with her daughter. Review of Systems ROS unobtainable: due to mental status Past Medical History Past Medical History: Cancer, COPD, CVA/TIA, Dementia, GERD/Reflux, Hyperlipidemia, Hypertension, Osteoarthritis (OA), Rheumatoid Arthritis (RA) Additional Past Medical History / Comment(s): Hx hiatal hernia, skin CA, "brain bleed 2012" - memory issues since then, tunnel vision, vertigo, scoliosis, diverticulitis, muscle weakness-uses a cane or wheelchair, gets dizzy and balance problems throat muscles very weak-"thick phlegm comes up in throat when she lays down". "twisted bowel", IBS. History of Any Multi-Drug Resistant Organisms: None Reported Past Surgical History: Section, Hernia Repair, Tubal Ligation Additional Past Surgical History / Comment(s): Hiatal hernia repair, grisel cataract sx, EGD. inguinal hernia repair Past Anesthesia/Blood Transfusion Reactions: No Reported Reaction Additional Past Anesthesia/Blood Transfusion Reaction / Comment(s): No hx blood transfusion, "thick phlegm comes up in throat when she lays down". Past Psychological History: Anxiety, Depression Smoking Status: Never smoker Past Alcohol Use History: None Reported Past Drug Use History: None Reported - Past Family History Mother Family Medical History: Cancer Additional Family Medical History / Comment(s): pancreatic cancer Father Family Medical History: CVA/TIA Daughter(s) Family Medical History: Cancer Additional Family Medical History / Comment(s): breast Son(s) Family Medical History: Cancer Additional Family Medical History / Comment(s): prostate Medications and Allergies Home Medications Medication Instructions Recorded Confirmed Type Atorvastatin [Lipitor] 10 mg PO HS 06/08/17 09/11/20 History captopriL [Capoten] 50 mg PO BID 06/08/17 09/11/20 History Sertraline [Zoloft] 150 mg PO DAILY 10/10/17 09/11/20 History Donepezil [Aricept] 10 mg PO HS 10/21/18 09/11/20 History Multivit-Min/FA/Lycopen/Lutein 1 tab PO DAILY 10/21/18 09/11/20 History [Centrum Silver Tablet] amLODIPine [Norvasc] 5 mg PO DAILY 10/21/18 09/11/20 History Celecoxib [CeleBREX] 200 mg PO DAILY 06/29/20 09/11/20 History Cranberry Fruit Extract [Cranberry] 500 mg PO DAILY 06/29/20 09/11/20 History Famotidine [Pepcid] 20 mg PO HS 06/29/20 09/11/20 History Melatonin 10 mg PO HS PRN 06/29/20 09/11/20 History Omeprazole 40 mg PO DAILY 06/29/20 09/11/20 History carBAMazepine [TEGretol XR] 100 mg PO DAILY 06/29/20 09/11/20 History Gabapentin [Neurontin] 100 mg PO DAILY 07/26/20 09/11/20 History Sucralfate [Carafate] 1 gm PO BID 09/11/20 09/11/20 History Allergies Allergy/AdvReac Type Severity Reaction Status Date / Time clindamycin Allergy SOB,dizzy Verified 09/11/20 17:54 Penicillins Allergy Unknown Verified 09/11/20 17:54 Sulfa (Sulfonamide Allergy Unknown Verified 09/11/20 17:54 Antibiotics) Physical Examination On exam patient is resting comfortably in bed in no acute distress. Patient is confused. The left lower extremity is shortened and externally rotated. Dorsalis pedis pulse is 2+. The left lower extremity is warm and well perfused. Sensation intact. Calf is soft and nontender to palpation. Neurovascular status and circulatory status are intact. Head is normocephalic and atraumatic. Exams of bilateral upper extremities and the right lower extremity are within normal limits. Results X-rays of the left hip and pelvis reveal a left femoral neck fracture. Assessment and Plan (1) Dementia Current Visit: Yes Status: Acute Code(s): F03.90 - UNSPECIFIED DEMENTIA WITHOUT BEHAVIORAL DISTURBANCE SNOMED Code(s): 10688509 (2) Fall Current Visit: Yes Status: Acute Code(s): W19.XXXA - UNSPECIFIED FALL, INITIAL ENCOUNTER SNOMED Code(s): 9910553 (3) Femoral neck fracture Current Visit: Yes Status: Acute Code(s): S72.009A - FRACTURE OF UNSP PART OF NECK OF UNSP FEMUR, INIT SNOMED Code(s): 6741623 Plan: 1. Patient is NPO. 2. Continue pain control. 3. Appreciate input from medicine. 4. Planning for left hip hemiarthroplasty later today by Dr. Vijay Barrett. All questions and concerns are answered at bedside today with the patient's daughter.
[2020-09-12] MEDS ORDERED: HYDROmorphone 0.5 MG/0.5 ML SYRINGE IVP PRN (08:45)
[2020-09-12] MEDS ORDERED: HYDROmorphone 0.2 MG/1 ML SYRINGE IVP PRN (08:45)
[2020-09-12] MEDS ORDERED: SODIUM CHLORIDE 0.9% 100 ML BAG ONE (08:45)
[2020-09-12] MEDS ORDERED: NALOXONE 0.4 MG/ML 1 ML VIAL IV PRN (08:45)
[2020-09-12] MEDS ORDERED: SUCCINYLCHOLINE CHLORIDE 100 MG/5 ML SYR IV ONE (08:45)
[2020-09-12] MEDS ORDERED: MAGNESIUM HYDROXIDE 2,400 MG/10 ML CUP PO PRN (08:45)
[2020-09-12] MEDS ORDERED: DEXAMETHASONE SOD PHOSPHATE 4 MG/ML 1 ML VIAL ONE (08:45)
[2020-09-12] MEDS ORDERED: ONDANSETRON 4 MG/2 ML VIAL ONE (08:45)
[2020-09-12] MEDS ORDERED: ETOMIDATE 2 MG/ML 10 ML VIAL ONE (08:45)
[2020-09-12] MEDS ORDERED: fentaNYL (PF) 50 MCG/ML 2 ML AMP ONE (08:45)
[2020-09-12] MEDS ORDERED: ceFAZolin 1,000 MG VIAL ONE (08:45)
[2020-09-12] MEDS ORDERED: ONDANSETRON 4 MG/2 ML VIAL IVP PRN (08:45)
[2020-09-12] MEDS ORDERED: HYDROcodone/APAP 5-325MG 1 EACH TAB PO PRN (08:45)
[2020-09-12] MEDS ORDERED: IV FLUID CONTINUATION 800 ML IV ONE (08:50)
[2020-09-12] MEDS ORDERED: NON FORMULARY DRUG (Cranberry Fruit Extract [Cranberry] 500 MG Tablet) PO SCH (09:00)
[2020-09-12] MEDS ORDERED: VIT A,C & E-LUTEIN-MINERALS 1 EACH TAB PO SCH (09:00)
--- NOTE | 2020-09-12 09:55 | P.OP ---
Date of Procedure: 09/12/20 Preoperative Diagnosis: subcapital fracture left hip Postoperative Diagnosis: subcapital fracture left hip Procedure(s) Performed: 1. Left hip hemiarthroplasty 2. Open reduction and internal fixation intraoperative calcar fracture Implants: Bowden and nephew Polarstem size 3 standard with a collar [employer]hew tandem unipolar, 43 mm [employer]den [employer]hew tandem unipolar 12/14 taper sleeve, -3 mm Av cable ready cerclage wire All components were press-fit. Anesthesia: GETA Surgeon: Vijay Barrett Solar Resource Assessor #1: Trisha Ko Estimated Blood Loss (ml): 100 Pathology: other (femoral head) Condition: stable Disposition: PACU Indications for Procedure: this is an 89-year-old female that presented to the hospital after multiple recent falls. Her daughter states that she has been not walking well lately and having trouble with her balance. The patient presented with severe pain in her left hip and x-rays demonstrated displaced subcapital fracture of her left hip. After discussing the surgical and nonsurgical treatment options with her daughter at length, I recommended a left hip hemiarthroplasty. Informed consent was obtained. Operative Findings: the operative findings are consistent with a subcapital fracture of the left hip. There was a intraoperative calcar fracture which did not extend below the lesser trochanter. This was repaired with a cerclage wire. Description of Procedure: Patient was seen and evaluated in the preoperative area, consent was reviewed and the operative site was marked with a skin marker. Patient was then brought to the operating room and given 2 g of Ancef intravenously. A general anesthetic was administered by the anesthesia department. Patient was then placed in a lateral decubitus position and held with a [facility]. The bony prominences were well-padded and an axillary roll was placed. The hip was then prepped and draped in the usual sterile fashion. A universal timeout was then performed which confirmed the patient's name, surgical site, ALLERGIES, and procedure. A standard anterolateral approach the hip was performed. Skin and subcutaneous tissues were sharply incised with an incision centered over the tip of the greater trochanter. The incision was carefully dissected down to the fascia. The fascia was then split in line with skin incision and a Charnley retractor was gently placed. The abductors were then identified, and the anterior one third of the abductors were released off the trochanter and one large sleeve. The fracture hematoma was evacuated and the proximal femur was exposed by externally rotating the femur. The fracture site was readily visualized. Next, using an osteotomy guide, the proximal femur was osteotomized at the appropriate level of the above the lesser trochanter. This bone was then removed. Attention was then turned to the femoral head. Using a corkscrew, the femoral head was removed from the acetabulum without incident. The acetabulum was inspected, and found to have no significant arthrosis. Femoral head was then measured. Attention was then redirected to the femur. Proximal femur was re-exposed and a box osteotome was used to lateralize the proximal femur. A block chopper hand was then used to locate the femoral canal. Sequential broaching was then performed to the appropriate size. It was noticed that a small fracture of the proximal calcar had occurred during broaching. The fracture line was evaluated and found to not extend beyond the lesser trochanter. A cerclage cable was placed around the fracture without difficulty. The trial head and neck were placed. The hip was then gently reduced. Leg lengths were checked and found to be equal. Hip was then taken through a full range of motion was stable throughout. The hip was then gently dislocated with the aid of a bone hook. The trial head and neck were then removed. The femoral broach was then inspected and found to have a secure fit. The broach was then removed. The hip was then copiously irrigated with antibiotic solution with a pulse lavage. Components were then opened and the femoral stem was then impacted into the proximal femur. The trunnion was cleaned and dried, and the femoral head and neck were then impacted. Hip was again gently reduced. Again leg lengths were checked and found to be equal, and the hip was taken through a full range of motion and found to be stable. The hip was again irrigated with pulsatile lavage, then followed by the Irrrisept solution. The abductors were then repaired through drill holes to the bone to the greater trochanter, utilizing #5 Ethibond suture. Next the fascia was repaired with #2 strata fix suture. The subcutaneous tissue was then repaired with 3-0 Vicryl. The subcuticular tissue was then repaired with 3-0 strata fix suture. Exofin skin glue was then placed on the wound. An Optifoam dressing was then applied and the patient was transported to the recovery room in stable condition. Solar Resource Assessor JONG Sow was required due to the complexity of surgery the need for skilled assistant product manager. She assisted with positioning the patient, draping the patient, retraction during the surgery, and closure of the wound.
[2020-09-12] MEDS ORDERED: HYDROmorphone 0.5 MG/0.5 ML SYRINGE IVP ONE ×2 (10:20→10:30)
--- NOTE | 2020-09-12 10:43 | XR ---
EXAMINATION TYPE: XR Hip Limited LT DATE OF EXAM: 09/12/2020 COMPARISON: NONE HISTORY: Postop TECHNIQUE: 1 view submitted FINDINGS: There is no evidence of erosive change or acute fracture. IMPRESSION: 1. No evidence of acute fracture or dislocation. MTDD
[2020-09-12] MEDS ORDERED: SODIUM CHLORIDE 0.9% 1,000 ML IV ONE ×2 (10:49)
[2020-09-12] MEDS: SODIUM CHLORIDE 0.9% 1,000 ML IV SCH ×2 (11:34→23:37)
[2020-09-12 11:52] LABS: Basophils % (A) 0 %; Eosinophils % (A) 0 %; HCT 36.8 % (34.0-46.0); HGB 11.5 gm/dL (11.4-16.0); Lymphocytes # (A) 0.6 k/uL (1.0-4.8); Lymphocytes % (A) 3 %; MCH 31.2 pg (25.0-35.0); MCHC 31.3 g/dL (31.0-37.0); MCV 99.6 fL (80.0-100.0); Mean Platelet Volume 6.7; Monocytes # (A) 0.3 k/uL (0-1.0); Monocytes % (A) 2 %; Neutrophils # (A) 16.2 k/uL (1.3-7.7); Neutrophils % (A) 95 %; Platelet Count 464 k/uL (150-450); RBC 3.69 m/uL (3.80-5.40); RDW 13.6 % (11.5-15.5); WBC 17.1 k/uL (3.8-10.6)
--- NOTE | 2020-09-12 14:34 | P.PN ---
Progress Note - Text Progress Note Date: 09/12/20 - Chief Complaint Left hip pain - History of Present Illness Consultation: This is a pleasant 89-year-old patient who follows with Dr. Yeager. Patient is Dr. Anderson is at the bedside who is patient's POA. Patient has significant dementia and can only give a sketchy history. 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 At the baseline patient is using a cane and walking was extremely limited. Sunday that is a week ago patient took a fall and nothing much was made out of it. Subsequently 2 days later patient had a fall again and this time the leg was felt to be externally rotated. Daughter was managing it conservatively at home and finally decided to bring them in to [facility]. Fracture of the left femur neck was confirmed. And patient was transferred down here for surgical intervention. Patient does not have any cardiac or pulmonary history. No chest pain or shortness of breath has been reported. No fever no chills no cough. Patient's appetite is okay. Today: Underwent left hip hemiarthroplasty. Open reduction internal fixation intraoperative calcar fracture. Patient rather sleepy. Lethargic. Just about arousable. Review of systems Limited patient postop lethargic/sleepy Past medical history to include: COPD, TIA, dementia, GERD, hyperlipidemia, hypertension, osteoarthritis, rheumatoid arthritis, skin cancer, hiatal hernia, brain bleeding 2012 with memory issues since then, tunnel vision, scoliosis, diverticulitis, IBS Social history: No history of smoking or alcohol. Lives with her daughter Monica was also D POA Physical examination: VITAL SIGNS: 98, 78, 16, 154/65, 93% room air GENERAL: Laying in bed, sleepy lethargic EYES: Pupils equal. Conjunctiva normal. NECK: JVD not raised; masses not palpable. HEART: First and second heart sounds are normal; no edema. LUNGS: Respiratory rate normal; clear to auscultation MUSCULAR skeletal: Evidence of severe OA especially in the hands. Dressing over the left hip incision. ABDOMEN: Soft, nontender, liver spleen not palpable, no masses palpable. PSYCH: Cannot assess patient lethargic NEUROLOGICAL: Cranial nerves grossly intact; no facial asymmetry, rest cannot be assessed Investigations: September 12: WBC 17.1 hemoglobin 11.5 platelets 464 [Labwork investigations from [facility]] WBC 10.8 hemoglobin 11.2 platelets 385 pro time 11 sodium 134 potassium 4.3 bun 15 creatinine 0.7 albumin 3.5 Computed tomography scan of the brain-chronic changes Computed tomography scan of lumbar spine showing T12 old compression fracture, left femur fracture EKG tracing personally reviewed by me-normal sinus rhythm with poor R-wave progression Computed tomography scan of the chest: Chronic fibrotic changes osteopenia Assessment and plan: -Left femur fracture with initial fall a week ago and the second fall 2 days following that. left hip hemiarthroplasty. 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 Baseline walking a few steps with a cane -COPD in a nonsmoker Use albuterol when necessary -GERD Pepcid -Essential hypertension On Norvasc, Capoten -Hyperlipidemia Continue Lipitor -Primary osteoarthritis multiple joints bilateral Use pain medications as needed -Chronic pulmonary fibrosis at the base of the lungs Follow clinically Continue current medications. Eliquis added for DVT prophylaxis-by surgery. thank you Dr. Barrett
[2020-09-12] MEDS: CALCIUM CARB-VIT D 500 MG-5 MCG TAB PO SCH (16:51)
[2020-09-12] MEDS: HYDROmorphone 0.5 MG/0.5 ML SYRINGE IVP PRN ×2 (18:00→21:13)
[2020-09-12] MEDS: DONEPEZIL 10 MG TAB PO SCH (21:13)
[2020-09-12] MEDS: ATORVASTATIN 10 MG TAB PO SCH (21:13)
[2020-09-12] MEDS: APIXABAN 2.5 MG TABLET PO SCH (21:13)
[2020-09-12] MEDS: SENNOSIDES-DOCUSATE SODIUM 1 EACH TAB PO SCH (21:13)
[2020-09-13] MEDS: HYDROmorphone 0.5 MG/0.5 ML SYRINGE IVP PRN ×5 (00:10→23:34)
[2020-09-13] MEDS: HYDROcodone/APAP 5-325MG 1 EACH TAB PO PRN ×2 (09:00→20:15)
[2020-09-13] MEDS: PANTOPRAZOLE 40 MG TABLET PO SCH (09:03)
[2020-09-13] MEDS: GABAPENTIN 100 MG CAP PO SCH (09:03)
[2020-09-13] MEDS: SERTRALINE 50 MG TAB PO SCH (09:03)
[2020-09-13] MEDS: amLODIPine 5 MG TAB PO SCH (09:03)
[2020-09-13] MEDS: MULTIVITAMINS, THERA 1 EACH TAB PO SCH (09:03)
[2020-09-13] MEDS: APIXABAN 2.5 MG TABLET PO SCH ×2 (09:03→20:14)
[2020-09-13] MEDS: CALCIUM CARB-VIT D 500 MG-5 MCG TAB PO SCH ×2 (09:03→17:59)
[2020-09-13] MEDS: MELOXICAM 7.5 MG TAB PO SCH (09:03)
[2020-09-13] MEDS: carBAMazepine 100 MG TAB.ER.12H PO SCH (11:18)
--- NOTE | 2020-09-13 14:40 | P.PN ---
Progress Note - Text Progress Note Date: 09/13/20 - Chief Complaint Left hip pain - History of Present Illness Consultation: This is a pleasant 89-year-old patient who follows with Dr. Yeager. Patient is Dr. Anderson is at the bedside who is patient's POA. Patient has significant dementia and can only give a sketchy history. 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 At the baseline patient is using a cane and walking was extremely limited. Sunday that is a week ago patient took a fall and nothing much was made out of it. Subsequently 2 days later patient had a fall again and this time the leg was felt to be externally rotated. Daughter was managing it conservatively at home and finally decided to bring them in to [facility]. Fracture of the left femur neck was confirmed. And patient was transferred down here for surgical intervention. Patient does not have any cardiac or pulmonary history. No chest pain or shortness of breath has been reported. No fever no chills no cough. Patient's appetite is okay. September 12: left hip hemiarthroplasty. Open reduction internal fixation intraoperative calcar fracture. Today: Laying in bed, awake, tired. Family at bedside. Not much of an appetite. Review of systems: Attempted for constitutional, cardiovascular, GI, pulmonary. relevant finding as above Past medical history to include: COPD, TIA, dementia, GERD, hyperlipidemia, hypertension, osteoarthritis, rheumatoid arthritis, skin cancer, hiatal hernia, brain bleeding 2012 with memory issues since then, tunnel vision, scoliosis, diverticulitis, IBS Social history: No history of smoking or alcohol. Lives with her daughter Monica was also D POA Physical examination: VITAL SIGNS: 98.3, 95, 15, 113 x 67, 97% 2 L GENERAL: Laying in bed, awake, tired EYES: Pupils equal. Conjunctiva normal. NECK: JVD not raised; masses not palpable. HEART: First and second heart sounds are normal; no edema. LUNGS: Respiratory rate normal; clear to auscultation MUSCULAR skeletal: Evidence of severe OA especially in the hands. Dressing over the left hip incision. ABDOMEN: Soft, nontender, liver spleen not palpable, no masses palpable. PSYCH: Answering simple questions Investigations: September 12: WBC 17.1 hemoglobin 11.5 platelets 464 [Labwork investigations from [facility]] WBC 10.8 hemoglobin 11.2 platelets 385 pro time 11 sodium 134 potassium 4.3 bun 15 creatinine 0.7 albumin 3.5 Computed tomography scan of the brain-chronic changes Computed tomography scan of lumbar spine showing T12 old compression fracture, left femur fracture EKG tracing personally reviewed by me-normal sinus rhythm with poor R-wave progression Computed tomography scan of the chest: Chronic fibrotic changes osteopenia Assessment and plan: -Left femur fracture with initial fall a week ago and the second fall 2 days following that. left hip hemiarthroplasty. 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 Baseline walking a few steps with a cane -COPD in a nonsmoker Use albuterol when necessary -GERD Pepcid -Essential hypertension On Norvasc, Capoten -Hyperlipidemia Continue Lipitor -Primary osteoarthritis multiple joints bilateral Use pain medications as needed -Chronic pulmonary fibrosis at the base of the lungs Follow clinically Continue current medications. Discussed care with the family the bedside. Ordered and showed an milkshake. Patient probably will need inpatient rehab thank you Dr. Barrett
--- NOTE | 2020-09-13 15:38 | P.PN ---
Subjective Progress Note Date: 09/13/20 This is an 89-year-old female who is status post left hip hemiarthroplasty. This is postoperative day #1 and patient is seen and evaluated at bedside today. Patient is slightly confused today. Patient does admit to some pain in the left hip, but she denies any new complaints today. Objective - Vital Signs Vital signs: Vital Signs Temp 98.3 F 09/13/20 13:52 Pulse 95 09/13/20 13:52 Resp 15 09/13/20 13:52 BP 113/67 09/13/20 13:52 Pulse Ox 97 09/13/20 13:52 Intake & Output 09/12/20 09/13/20 09/13/20 18:59 06:59 18:59 Intake Total 1395 Output Total 250 920 Balance 1145 -920 Weight 51.256 kg Intake: IV 825 Intake, IV Titration 570 Amount Sodium Chloride 0.9% 1, 520 000 ml @ 65 mls/hr IV . [id number] RHINA Rx#:[id number] ceFAZolin 2 gm In Sodium 50 Chloride 0.9% 50 ml @ 100 mls/hr IVPB Q8HR RHINA Rx# :[id number] Output: Urine 150 920 Estimated Blood Loss 100 Other: Voiding Method Indwelling Catheter Indwelling Catheter Indwelling Catheter - Exam Vital signs are stable. Patient is in no acute distress and is alert and oriented 3. Abductor pillow is in place. Calf is soft and nontender to palpation. Dressing is clean, dry, and intact. Patient has full foot and ankle motion without pain or difficulty. Sensation intact. Neurovascular status and circulatory status are intact. - Labs CBC & Chem 7: 09/12/20 11:28 Assessment and Plan (1) Dementia Current Visit: Yes Status: Acute Code(s): F03.90 - UNSPECIFIED DEMENTIA WITHOUT BEHAVIORAL DISTURBANCE SNOMED Code(s): 35909847 (2) Fall Current Visit: Yes Status: Acute Code(s): W19.XXXA - UNSPECIFIED FALL, INITIAL ENCOUNTER SNOMED Code(s): 8205396 (3) Femoral neck fracture Current Visit: Yes Status: Acute Code(s): S72.009A - FRACTURE OF UNSP PART OF NECK OF UNSP FEMUR, INIT SNOMED Code(s): 0594451 Plan: Continue routine postop care and pain control. Continue hip dislocation precautions and use of abductor pillow for 6 weeks. Continue anticoagulation with Eliquis. Weightbearing as tolerated with a walker. Leave dressing in place for 7 days. Appreciate input from medicine. Anticipate discharge to [facility] tomorrow.
[2020-09-13] MEDS: SODIUM CHLORIDE 0.9% 1,000 ML IV SCH (17:26)
[2020-09-13] MEDS: SENNOSIDES-DOCUSATE SODIUM 1 EACH TAB PO SCH (20:14)
[2020-09-13] MEDS: DONEPEZIL 10 MG TAB PO SCH (20:14)
[2020-09-13] MEDS: ATORVASTATIN 10 MG TAB PO SCH (20:14)
[2020-09-14] MEDS: PANTOPRAZOLE 40 MG TABLET PO SCH (08:35)
[2020-09-14] MEDS: GABAPENTIN 100 MG CAP PO SCH (08:35)
[2020-09-14] MEDS: SERTRALINE 50 MG TAB PO SCH (08:35)
[2020-09-14] MEDS: CALCIUM CARB-VIT D 500 MG-5 MCG TAB PO SCH ×2 (08:35→17:48)
[2020-09-14] MEDS: MELOXICAM 7.5 MG TAB PO SCH (08:36)
[2020-09-14] MEDS: MULTIVITAMINS, THERA 1 EACH TAB PO SCH (08:36)
[2020-09-14] MEDS: SODIUM CHLORIDE 0.9% 1,000 ML IV SCH (08:36)
[2020-09-14] MEDS: APIXABAN 2.5 MG TABLET PO SCH (08:36)
[2020-09-14] MEDS: amLODIPine 5 MG TAB PO SCH (08:36)
[2020-09-14] MEDS: carBAMazepine 100 MG TAB.ER.12H PO SCH (08:37)
[2020-09-14 09:25] LABS: Basophils % (A) 0 %; Eosinophils # (A) 0.1 k/uL (0-0.7); Eosinophils % (A) 1 %; HCT 27.3 % (34.0-46.0); Lymphocytes # (A) 0.9 k/uL (1.0-4.8); Lymphocytes % (A) 6 %; MCH 33.1 pg (25.0-35.0); MCHC 33.7 g/dL (31.0-37.0); MCV 98.1 fL (80.0-100.0); Monocytes # (A) 0.7 k/uL (0-1.0); Monocytes % (A) 5 %; Neutrophils # (A) 12.6 k/uL (1.3-7.7); Neutrophils % (A) 88 %; Platelet Count 405 k/uL (150-450); RBC 2.78 m/uL (3.80-5.40); WBC 14.4 k/uL (3.8-10.6)
[2020-09-14 09:35] LABS: HGB 9.2 gm/dL (11.4-16.0)
[2020-09-14] MEDS: HYDROcodone/APAP 5-325MG 1 EACH TAB PO PRN ×2 (12:36→18:07)
--- NOTE | 2020-09-14 13:46 | P.DS ---
Providers Date of admission: 09/11/20 18:18 Expected date of discharge: 09/14/20 Attending physician: Vijay Barrett Consults: 09/11/20 17:50 Consult Physician Routine Consulting Provider: Kael Whitfield Consult Reason/Comments: medical management Do you want consulting provider notified?: Yes, Notify in am Primary care physician: Alexander Sierra - Discharge Diagnosis(es) (1) Dementia Current Visit: Yes Status: Acute (2) Fall Current Visit: Yes Status: Acute (3) Femoral neck fracture Current Visit: Yes Status: Acute Hospital Course: This is an 89-year-old female who sustained a fracture of her left hip after a fall at home 09/14/2020. The patient presented for evaluation in the emergency room. After discussion and consideration patient elects to proceed with left hip hemiarthroplasty. The patient is seen preoperatively by Dr. Barrett and medically cleared for surgery by internal medicine. Patient is admitted to [facility] on 09/11/2020 and left hip hemiarthroplasty and ORIF of intraoperative calcar fracture is performed on 09/12/2020. The procedure is performed without complication or sequelae. The patient is doing well postoperatively. Labs and vital signs are stable on day of discharge. On day of discharge patient's hip incision is healing well. There is minimal erythema. There is no drainage noted at this time. There is minimal soft tissue swelling to the hip and thigh. Patient has full foot and ankle motion without difficulty or pain. Calf is soft and nontender to palpation. Neurovascular status to the left lower extremity is intact. Patient is discharged to rehab in good condition. Please see med rec for accurate list of home medications. Plan - Discharge Summary Discharge Rx Participant: No New Discharge Prescriptions: New Sennosides [Senokot] 2 tab PO DAILY PRN #60 tablet PRN Reason: Constipation Calcium Carb-Vit D 500Mg-5Mcg [Oscal 500+D 5 Mcg (200 Iu)] 1 each PO BID- W/MEALS tab Lisinopril-Hctz 20-12.5 mg [Zestoretic 20-12.5] 1 tab PO DAILY #1 tab Apixaban [Eliquis] 2.5 mg PO BID 35 Days #70 tab HYDROcodone/APAP 7.5-325MG [[place] 7.5-325] 1 tab PO Q6H PRN #28 tab PRN Reason: Pain Continue Atorvastatin [Lipitor] 10 mg PO HS Sertraline [Zoloft] 150 mg PO DAILY amLODIPine [Norvasc] 5 mg PO DAILY Donepezil [Aricept] 10 mg PO HS Multivit-Min/FA/Lycopen/Lutein [Centrum Silver Tablet] 1 tab PO DAILY Cranberry Fruit Extract [Cranberry] 500 mg PO DAILY Omeprazole 40 mg PO DAILY carBAMazepine [TEGretol XR] 100 mg PO DAILY Celecoxib [CeleBREX] 200 mg PO DAILY Melatonin 10 mg PO HS PRN PRN Reason: sleep Changed Famotidine [Pepcid] 20 mg PO BID #0 Discontinued captopriL [Capoten] 50 mg PO BID Gabapentin [Neurontin] 100 mg PO DAILY Sucralfate [Carafate] 1 gm PO BID Discharge Medication List Atorvastatin [Lipitor] 10 mg PO HS 06/08/17 [History] Sertraline [Zoloft] 150 mg PO DAILY 10/10/17 [History] Donepezil [Aricept] 10 mg PO HS 10/21/18 [History] Multivit-Min/FA/Lycopen/Lutein [Centrum Silver Tablet] 1 tab PO DAILY 10/21/18 [History] amLODIPine [Norvasc] 5 mg PO DAILY 10/21/18 [History] Celecoxib [CeleBREX] 200 mg PO DAILY 06/29/20 [History] Cranberry Fruit Extract [Cranberry] 500 mg PO DAILY 06/29/20 [History] Melatonin 10 mg PO HS PRN 06/29/20 [History] Omeprazole 40 mg PO DAILY 06/29/20 [History] carBAMazepine [TEGretol XR] 100 mg PO DAILY 06/29/20 [History] Apixaban [Eliquis] 2.5 mg PO BID 35 Days #70 tab 09/13/20 [Rx] HYDROcodone/APAP 7.5-325MG [[place] 7.5-325] 1 tab PO Q6H PRN #28 tab 09/13/20 [Rx] Sennosides [Senokot] 2 tab PO DAILY PRN #60 tablet 09/13/20 [Rx] Calcium Carb-Vit D 500Mg-5Mcg [Oscal 500+D 5 Mcg (200 Iu)] 1 each PO BID-W/MEALS tab 09/14/20 [Rx] Famotidine [Pepcid] 20 mg PO BID #0 09/14/20 [Rx] Lisinopril-Hctz 20-12.5 mg [Zestoretic 20-12.5] 1 tab PO DAILY #1 tab 09/14/20 [Rx] Follow up Appointment(s)/Referral(s): Alexander Sierra MD [Primary Care Provider] - 1-2 days Vijay Brarett DO [Doctor of Osteopathic Medicine] - 2 Weeks Activity/Diet/Wound Care/Special Instructions: Weightbearing as tolerated with walker. Leave dressing intact. Dressing may be removed by home care nurse or by patient in 7 days. Then change dressing twice daily. May shower with dressing on and after removal. If dressing become saturated, please remove. Continue hip dislocation precautions. Continue use of abductor pillow for 6 weeks while sleeping. Please take Eliquis twice daily for 35 days to help prevent blood clots. Recommend use of compression stockings daily until follow up to help prevent swelling and blood clots. May remove at night before sleeping. Please follow-up with [facility] in 2 weeks and call with any questions or concerns, . medically OK to dc Discharge Disposition: TRANSFER TO SNF/ECF
[2020-09-14 14:28] VITALS: BP 127/79; PULSE 94; RESP 17; TEMP 97.6
--- NOTE | 2020-09-14 18:49 | P.PN ---
Progress Note - Text Progress Note Date: 09/14/20 - Chief Complaint Left hip pain Consultation: This is a pleasant 89-year-old patient who follows with Dr. Yeager. Patient is Dr. Anderson is at the bedside who is patient's POA. Patient has significant dementia and can only give a sketchy history. 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 At the baseline patient is using a cane and walking was extremely limited. Sunday that is a week ago patient took a fall and nothing much was made out of it. Subsequently 2 days later patient had a fall again and this time the leg was felt to be externally rotated. Daughter was managing it conservatively at home and finally decided to bring them in to [facility]. Fracture of the left femur neck was confirmed. And patient was transferred down here for surgical intervention. Patient does not have any cardiac or pulmonary history. No chest pain or shortness of breath has been reported. No fever no chills no cough. Patient's appetite is okay. September 12: left hip hemiarthroplasty. Open reduction internal fixation intraoperative calcar fracture. Today: Daughter at the bedside. Eating small amounts. Encouraged for the same. Pain control. Due to go down to the [facility] for rehab today. Review of systems: Attempted for constitutional, cardiovascular, GI, pulmonary. relevant finding as above Past medical history to include: COPD, TIA, dementia, GERD, hyperlipidemia, hypertension, osteoarthritis, rheumatoid arthritis, skin cancer, hiatal hernia, brain bleeding 2012 with memory issues since then, tunnel vision, scoliosis, diverticulitis, IBS Social history: No history of smoking or alcohol. Lives with her daughter Monica was also D POA Physical examination: VITAL SIGNS: 99.5, 95, 15, 1:30/78, 98% room air GENERAL: Laying in bed, awake, tired EYES: Pupils equal. Conjunctiva normal. NECK: JVD not raised; masses not palpable. HEART: First and second heart sounds are normal; no edema. LUNGS: Respiratory rate normal; clear to auscultation MUSCULAR skeletal: Evidence of severe OA especially in the hands. Dressing over the left hip incision. ABDOMEN: Soft, nontender, liver spleen not palpable, no masses palpable. PSYCH: Answering simple questions Investigations: September 14: WBC 14.4 hemoglobin 9.2 platelets 405 September 12: WBC 17.1 hemoglobin 11.5 platelets 464 [Labwork investigations from [facility]] WBC 10.8 hemoglobin 11.2 platelets 385 pro time 11 sodium 134 potassium 4.3 bun 15 creatinine 0.7 albumin 3.5 Computed tomography scan of the brain-chronic changes Computed tomography scan of lumbar spine showing T12 old compression fracture, left femur fracture EKG tracing personally reviewed by me-normal sinus rhythm with poor R-wave progression Computed tomography scan of the chest: Chronic fibrotic changes osteopenia Assessment and plan: -Left femur fracture with initial fall a week ago and the second fall 2 days following that. left hip hemiarthroplasty. 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 Baseline walking a few steps with a cane PTOT -COPD in a nonsmoker Use albuterol when necessary -GERD Pepcid -Essential hypertension On Norvasc, Capoten -Hyperlipidemia Continue Lipitor -Primary osteoarthritis multiple joints bilateral Use pain medications as needed -Chronic pulmonary fibrosis at the base of the lungs Follow clinically -Acute postprocedure blood loss anemia, as expected from surgery Iron supplementation Discussed with patient daughter the bedside. Prognosis guarded. Patient going to inpatient rehab today. thank you Dr. Barrett
[2020-09-15] MEDS ORDERED: LISINOPRIL-HCTZ 20-12.5 MG 1 EACH TAB PO SCH (09:00)
== END 2020-09-14 18:46 | DRG 522 ==
LOC: EC 16:27 → 4SSUR 18:18
PROVIDERS: ADMIT Orthopaedic Surgery; ATTEND Orthopaedic Surgery
PROC: 0QS704Z Reposition Left Upper Femur with Internal Fixation Device, Open Approach (ICD-10-PCS; 2020-09-12)
PROC: 0SRS0JZ Replacement of Left Hip Joint, Femoral Surface with Synthetic Substitute, Open Approach (ICD-10-PCS; principal; 2020-09-12 09:30)
DX: S72.012A Unspecified intracapsular fracture of left femur, initial encounter for closed fracture (principal); D62 Acute posthemorrhagic anemia; F02.80 Dementia in other diseases classified elsewhere, unspecified severity, without behavioral disturbance, psychotic disturbance, mood disturbance, and anxiety; Z20.822 Contact with and (suspected) exposure to COVID-19; W07.XXXA Fall from chair, initial encounter; Y92.009 Unspecified place in unspecified non-institutional (private) residence as the place of occurrence of the external cause; Z91.81 History of falling; E78.5 Hyperlipidemia, unspecified; M06.9 Rheumatoid arthritis, unspecified; K21.9 Gastro-esophageal reflux disease without esophagitis; Z86.73 Personal history of transient ischemic attack (TIA), and cerebral infarction without residual deficits; Z85.828 Personal history of other malignant neoplasm of skin; Z80.0 Family history of malignant neoplasm of digestive organs; Z82.3 Family history of stroke; Z88.1 Allergy status to other antibiotic agents; Z88.2 Allergy status to sulfonamides; M85.80 Other specified disorders of bone density and structure, unspecified site; G30.9 Alzheimer's disease, unspecified; R26.9 Unspecified abnormalities of gait and mobility; J44.9 Chronic obstructive pulmonary disease, unspecified; J84.10 Pulmonary fibrosis, unspecified; M19.91 Primary osteoarthritis, unspecified site; I10 Essential (primary) hypertension; K58.9 Irritable bowel syndrome, unspecified; Z79.1 Long term (current) use of non-steroidal anti-inflammatories (NSAID); R29.6 Repeated falls; F32.9 Major depressive disorder, single episode, unspecified; F41.9 Anxiety disorder, unspecified; K44.9 Diaphragmatic hernia without obstruction or gangrene; M41.9 Scoliosis, unspecified
CPT/HCPCS: 73501; 73502; 85025; 87635; 88305; 88311; 99285

== ENCOUNTER 2020-10-05 21:30 | Inpatient (IN) | payer MEDICARE ==
[2020-10-06] MEDS ORDERED: NALOXONE 0.4 MG/ML 1 ML VIAL IV PRN (01:15)
--- NOTE | 2020-10-06 01:18 | P.HPIM ---
History of Present Illness H&P Date: 10/06/20 The patient is an 89-year-old female with a PMH of dementia, history of DVT on Eliquis, hypertension, hyperlipidemia, hiatal hernia, COPD, and GERD who was sent in from [facility] as a direct admission. The patient was sent to [facility] from [facility] rehab facility earlier today due to complaints of nausea and vomiting. Of note, the patient suffered a left hip fracture on 09/11 and underwent repair at [facility] and was subsequently transferred to that facility for rehab. The history is provided by the daughter at the bedside (POA). She reports that the facility notified her earlier today that her mother appeared to be ill and had a single episode of nausea and vomiting, nonbloody, for which she was sent to the emergency room. When patient is asked how she is doing, she repeatedly says "I don't know". The daughter states that her mother at baseline is only oriented to self and that her dementia has been gradually progressing over the past several years. The patient denied chest discomfort, shortness of breath, abdominal pain, diarrhea. Denied cough, fever, neck pain. The patient underwent an extensive evaluation in the emergency room which was all reviewed with EKG showing sinus rhythm at 78 bpm with LVH. Laboratory evaluation revealed a WBC count 13.6, hemoglobin 10.7, platelets 45, CK-MB 0.94, CPK 25, sodium 123, potassium 4.2, chloride 83, CO2 30, glucose 108, BUN 21, creatinine 0.6, calcium 8.8, alk phos 159, total bilirubin 0.2, total protein 6.9, albumin 3.7, INR 1.07, magnesium 1.9, phosphorus 3.9, proBNP 31, troponin I 0.015, and UA showing 30-50 WBCs, 1+ bacteria, negative nitrate, 3+ leukocyte esterase. CT abdomen and pelvis with IV contrast revealed fibrotic changes at the lung bases, stable along with colonic diverticulosis without diverticulitis. 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 Chest x-ray was also unremarkable. The patient was given Levaquin IV and was transferred to [facility] for further management. Discussed the case with the [facility] emergency room physician Dr. Inman. Review of systems: Pertinent positives and negatives as discussed in HPI, a complete review of systems was performed and all other systems are negative. Physical examination: General: non toxic, no distress, appears at stated age, normal weight Derm: no unusual rashes/lesions no unusual ecchymoses, warm, dry Head: atraumatic, normocephalic, symmetric Eyes: EOMI, no lid lag, anicteric sclera, pupils equal round reactive to light ENT: Nose and ears atraumatic, no thrush, no pharyngeal erythema Neck: No thyromegaly, no cervical lymphadenopathy, trachea midline, supple Mouth: no lip lesion, mucus membranes moist Cardiovascular: S1S2 reg, no murmur, positive posterior tibial pulse bilateral, no edema, capillary refill less than 2 seconds Lungs: CTA bilateral, no rhonchi, no rales , no accessory muscle use Abdominal: soft, nontender to palpation, no guarding, no appreciable organomegaly, normal bowel sounds Ext: no gross muscle atrophy, muscle strength 3 out of 5 in all 4 extremities grossly, no contractures, Neuro: CN II-XI grossly intact, light touch intact all 4 extremities, finger to nose within normal limits, Psych: Awake, alert, oriented only to self, not oriented to time or place Assessment/plan Hyponatremia, suspected secondary to poor oral intake -Check serum osmolality -Send urine studies -Gentle IV hydration -Monitor Na closely and avoid over-correction -C/w anti-emetics for nausea -Nephrology consult UTI -Continue with Levaquin Debility -PT consult Chronic conditions: Hypertension, hyperlipidemia, history of DVT, COPD, GERD and dementia -Continue with home medications DVT prophylaxis -Eliquis The patient is admitted with an anticipated greater than 2 midnight stay for evaluation of hyponatremia CODE STATUS: No Code Discussed with: Patient, Daughter Anticipated discharge date: 2-[address]: [facility] A total of 40 minutes was spent on the care of this complex patient more than 50% of the time was spent in counseling and care coordination. 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 "twisted bowel", IBS. History of Any Multi-Drug Resistant Organisms: None Reported Past Surgical History: Section, Hernia Repair, Tubal Ligation Additional Past Surgical History / Comment(s): Hiatal hernia repair, grisel cataract sx, EGD. inguinal hernia repair Past Anesthesia/Blood Transfusion Reactions: No Reported Reaction Additional Past Anesthesia/Blood Transfusion Reaction / Comment(s): No hx blood transfusion, "thick phlegm comes up in throat when she lays down". Past Psychological History: Anxiety, Depression Smoking Status: Never smoker Past Alcohol Use History: None Reported Past Drug Use History: None Reported - Past Family History Mother Family Medical History: Cancer Additional Family Medical History / Comment(s): pancreatic cancer Father Family Medical History: CVA/TIA Daughter(s) Family Medical History: Cancer Additional Family Medical History / Comment(s): breast Son(s) Family Medical History: Cancer Additional Family Medical History / Comment(s): prostate Medications and Allergies Home Medications Medication Instructions Recorded Confirmed Type Atorvastatin [Lipitor] 10 mg PO HS 06/08/17 09/11/20 History Sertraline [Zoloft] 150 mg PO DAILY 10/10/17 09/11/20 History Donepezil [Aricept] 10 mg PO HS 10/21/18 09/11/20 History Multivit-Min/FA/Lycopen/Lutein 1 tab PO DAILY 10/21/18 09/11/20 History [Centrum Silver Tablet] amLODIPine [Norvasc] 5 mg PO DAILY 10/21/18 09/11/20 History Celecoxib [CeleBREX] 200 mg PO DAILY 06/29/20 09/11/20 History Cranberry Fruit Extract [Cranberry] 500 mg PO DAILY 06/29/20 09/11/20 History Melatonin 10 mg PO HS PRN 06/29/20 09/11/20 History Omeprazole 40 mg PO DAILY 06/29/20 09/11/20 History carBAMazepine [TEGretol XR] 100 mg PO DAILY 06/29/20 09/11/20 History Apixaban [Eliquis] 2.5 mg PO BID 35 Days #70 tab 09/13/20 Rx HYDROcodone/APAP 7.5-325MG [[place] 1 tab PO Q6H PRN #28 tab 09/13/20 Rx 7.5-325] Sennosides [Senokot] 2 tab PO DAILY PRN #60 tablet 09/13/20 Rx Calcium Carb-Vit D 500Mg-5Mcg 1 each PO BID-W/MEALS tab 09/14/20 Rx [Oscal 500+D 5 Mcg (200 Iu)] Famotidine [Pepcid] 20 mg PO BID #0 09/14/20 09/11/20 Rx Lisinopril-Hctz 20-12.5 mg 1 tab PO DAILY #1 tab 09/14/20 Rx [Zestoretic 20-12.5] Allergies Allergy/AdvReac Type Severity Reaction Status Date / Time clindamycin Allergy SOB,dizzy Verified 09/11/20 17:54 Penicillins Allergy Unknown Verified 09/11/20 17:54 Sulfa (Sulfonamide Allergy Unknown Verified 09/11/20 17:54 Antibiotics) Physical Exam Vitals: Intake and Output 10/05/20 10/05/20 10/06/20 14:59 22:59 06:59 Other: Weight 58.97 kg
--- NOTE | 2020-10-06 01:21 | P.PN ---
Progress Note - Text Progress Note Date: 10/06/20 Advanced Care Planning Active Diagnosis: Dementia, UTI, Hyponatremia Persons present: Patient, Daughter Summary: Discussed the case in great detail with the patient's daughter at the bedside, Senait Anderson the patient's POA. She notes that her mother had informed her on multiple occasions that she would not wish to be kept alive on life support. She had endorsed to her that she would not want to be placed on life support for any reason. Discussed the different forms of life support offered and the caveats of CPR. The daughter notes that the patient would have wanted to be a no code and that no resuscitation be performed in the event of a cardiac arrest. Will make the patient a no code as per the family's wishes. Time spent: Total time spent face to face in education and discussion directly related to advanced care plannin minutes
[2020-10-06 02:17] LABS: African American GFR (CKD) >90 (>60 ml/min/1.73 sqM); Anion Gap 8 mmol/L; Blood Urea Nitrogen 18 mg/dL (7-17); Calcium 8.9 mg/dL (8.4-10.2); Carbon Dioxide 27 mmol/L (22-30); Chloride 86 mmol/L (98-107); Glucose 105 mg/dL (74-99); Non-African American GFR(CKD) 88 (>60 ml/min/1.73 sqM); Potassium 4.1 mmol/L (3.5-5.1); Sodium 121 mmol/L (137-145)
[2020-10-06] MEDS: ONDANSETRON 4 MG/2 ML VIAL IVP PRN ×2 (03:05→17:13)
[2020-10-06] MEDS: LEVOFLOXACIN 250 MG TAB PO SCH (08:17)
[2020-10-06] MEDS ORDERED: carBAMazepine 100 MG TAB.ER.12H PO SCH (09:00)
[2020-10-06] MEDS ORDERED: SERTRALINE 100 MG TAB PO SCH (09:00)
[2020-10-06 10:09] LABS: African American GFR (CKD) >90 (>60 ml/min/1.73 sqM); Anion Gap 7 mmol/L; Blood Urea Nitrogen 16 mg/dL (7-17); Calcium 8.6 mg/dL (8.4-10.2); Carbon Dioxide 28 mmol/L (22-30); Chloride 89 mmol/L (98-107); Glucose 96 mg/dL (74-99); Non-African American GFR(CKD) 84 (>60 ml/min/1.73 sqM); Potassium 4.7 mmol/L (3.5-5.1); Sodium 124 mmol/L (137-145)
--- NOTE | 2020-10-06 11:11 | P.NPCON ---
History of Present Illness - Reason for Consult hyponatremia - History of Present Illness Reason for consultation: Hyponatremia History of present illness: Patient is a 89-year-old female seen in consultation for hyponatremia. Patient presented from an extended care facility to [facility] due to nausea and vomiting. Patient's sodium level was initially 123 and she was subsequently transferred here. Sodium level here was 121. This morning it is at 124. She is currently not on any IV fluids. I do see Celebrex and her home medication list. Additionally she is also on Zoloft and Tegretol. Daughter is present at bedside. Patient did have an episode of vomiting prior to admission. She is currently on a chopped diet. Oral intake has been poor the last few days. No diarrhea. Not on any diuretics. No history of cancer. No edema. Has been voiding. Creatinine 0.56. Patient underwent hip arthroplasty about 3 weeks ago. Vital signs are stable. General: The patient appeared well nourished and normally developed. HEENT: Head exam is unremarkable. Neck is without jugular venous distension. LUNGS: Breath sounds decreased. HEART: Rate and Rhythm are regular. ABDOMEN: Soft, no distention. EXTREMITITES: No edema. 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 "twisted bowel", IBS. History of Any Multi-Drug Resistant Organisms: None Reported Past Surgical History: Section, Hernia Repair, Tubal Ligation Additional Past Surgical History / Comment(s): Hiatal hernia repair, grisel cataract sx, EGD. inguinal hernia repair Past Anesthesia/Blood Transfusion Reactions: No Reported Reaction Additional Past Anesthesia/Blood Transfusion Reaction / Comment(s): No hx blood transfusion, "thick phlegm comes up in throat when she lays down". Past Psychological History: Anxiety, Depression Smoking Status: Never smoker Past Alcohol Use History: None Reported Past Drug Use History: None Reported - Past Family History Mother Family Medical History: Cancer Additional Family Medical History / Comment(s): pancreatic cancer Father Family Medical History: CVA/TIA Daughter(s) Family Medical History: Cancer Additional Family Medical History / Comment(s): breast Son(s) Family Medical History: Cancer Additional Family Medical History / Comment(s): prostate Brother(s) Family Medical History: Diabetes Mellitus Additional Family Medical History / Comment(s): 3 brothers Medications and Allergies Home Medications Medication Instructions Recorded Confirmed Type Atorvastatin [Lipitor] 10 mg PO HS 06/08/17 10/06/20 History Sertraline [Zoloft] 100 mg PO DAILY 10/10/17 10/06/20 History Donepezil [Aricept] 10 mg PO HS 10/21/18 10/06/20 History Multivit-Min/FA/Lycopen/Lutein 1 tab PO DAILY 10/21/18 10/06/20 History [Centrum Silver Tablet] amLODIPine [Norvasc] 5 mg PO DAILY 10/21/18 10/06/20 History Celecoxib [CeleBREX] 200 mg PO DAILY 06/29/20 10/06/20 History Cranberry Fruit Extract [Cranberry] 500 mg PO DAILY 06/29/20 10/06/20 History Melatonin 10 mg PO HS PRN 06/29/20 10/06/20 History Omeprazole 40 mg PO DAILY 06/29/20 10/06/20 History carBAMazepine [TEGretol XR] 100 mg PO DAILY 06/29/20 10/06/20 History Famotidine [Pepcid] 20 mg PO BID #0 09/14/20 10/06/20 Rx captopriL [Captopril] 50 mg PO BID 10/06/20 10/06/20 History Allergies Allergy/AdvReac Type Severity Reaction Status Date / Time clindamycin Allergy SOB,dizzy Verified 09/11/20 17:54 Penicillins Allergy Unknown Verified 09/11/20 17:54 Sulfa (Sulfonamide Allergy Unknown Verified 09/11/20 17:54 Antibiotics) Physical Exam Vitals: Vital Signs Temp Pulse Resp BP Pulse Ox 10/06/20 08:40 98.0 F 84 16 110/69 96 10/06/20 02:50 97.6 F 78 16 117/74 96 10/05/20 23:45 97.9 F 75 16 123/74 95 Intake and Output 10/05/20 10/06/20 10/06/20 22:59 06:59 14:59 Other: # Voids 2 2 Weight 58.97 kg Results - Lab Results Most recent lab results Calcium 8.6 mg/dL (8.4-10.2) 10/06/20 09:50 10/06/20 09:50 Assessment and Plan Plan: Assessment: 1. Hyponatremia. Patient appears hypovolemic. Also component of poor solute intake. Patient is also on Tegretol, Zoloft as well as nonsteroidals which can induce SIADH. Sodium level 124 this morning. 2. Benign hypertension. Controlled. Plan: Start normal saline at 75 mL an hour. 1200 mL fluid restriction. Encourage oral intake, particularly protein. Add ensure 3 times a day. Follow-up urine sodium level and urine osmolality. Check TSH. Repeat sodium level this evening. Thank you for the consultation. I will continue to follow the patient with you during her hospital stay.
[2020-10-06] MEDS ORDERED: SODIUM CHLORIDE 0.9% 1,000 ML IV SCH (11:15)
[2020-10-06 11:58] LABS: HCT 28.3 % (37.2-46.3); HGB 9.1 g/dL (12.0-15.0); MCHC 32.2 g/dL (32.0-37.0); MCV 96.3 fL (80.0-97.0); Mean Platelet Volume 8.9 fL (9.5-12.2); Platelet Count 380 X 10*3/uL (140-440); RBC 2.94 X 10*6/uL (4.10-5.20); RDW 13.3 % (11.5-14.5)
--- NOTE | 2020-10-06 12:59 | P.PN ---
Subjective Progress Note Date: 10/06/20 Feels okay, no chest pain no abdominal pain. Still has nausea. Appetite poor. Patient's daughter is at bedside. Objective - Vital Signs Vital signs: Vital Signs Temp 98.0 F 10/06/20 08:40 Pulse 84 10/06/20 08:40 Resp 16 10/06/20 08:40 BP 110/69 10/06/20 08:40 Pulse Ox 96 10/06/20 08:40 Intake & Output 10/05/20 10/06/20 10/06/20 18:59 06:59 18:59 Weight 58.97 kg Other: # Voids 2 2 - Exam Constitutional: No acute distress, conversant, pleasant Eyes: Anicteric sclerae, moist conjunctiva ENMT: NC/AT Neck:Supple, FROM Lungs: Clear to auscultation, Clear to percussion, Normal respiratory effort, no accessory muscle use Cardiovascular: Heart regular in rate and rhythm, No murmurs, gallops, or rubs no peripheral edema Abdominal: Soft Nontender, non distended, no guarding, Skin: Normal temperature, tone, texture, turgor, No induration No subcutaneous nodules, No rash, lesions, No ulcers Extremities:No digital cyanosis No clubbing, Pedal pulses intact and symmetrical Radial pulses intact and symmetrical Normal gait and station, No calf tenderness Psychiatric: Alert and oriented to person, place and time, Appropriate affect Intact judgement Neuro: Muscles Strength 5/5 in all 4 extremities, Sensation to light touch grossly present throughout, Cranial nerves II-XII grossly intact. No focal sensory deficits - Labs CBC & Chem 7: 10/06/20 07:20 10/06/20 09:50 Labs: Abnormal Lab Results - Last 24 Hours (Table) 10/06/20 10/06/20 10/06/20 Range/Units 01:35 07:20 09:50 RBC 2.94 L (4.10-5.20) X 10*6/uL Hgb 9.1 L (12.0-15.0) g/dL Hct 28.3 L (37.2-46.3) % MPV 8.9 L (9.5-12.2) fL Sodium 121 L 124 L (137-145) mmol/L Chloride 86 L 89 L (98-107) mmol/L BUN 18 H (7-17) mg/dL Creatinine 0.48 L (0.52-1.04) mg/dL Glucose 105 H (74-99) mg/dL Osmolality 258 L (280-301) mosm/kg Assessment and Plan Plan: Assessment: 1. Hyponatremia hypovolemic. Patient is also on Tegretol, Zoloft as well as nonsteroidals which can induce SIADH, on normal saline at 75,Change to 50 mL per hour. 1.2 L fluid restriction 2. Benign hypertension. Controlled. 3. Poor oral intake: Supportive care, dietary input appreciated 4. UTI, acute unspecified organism continue Levaquin 5. Depression: Continue sertraline 6. Dementia unspecified type without behavioral changes: Continue Aricept Disposition: Pending clinical progression
[2020-10-06 13:44] VITALS: BMI 21.6
[2020-10-06] MEDS: SODIUM CHLORIDE 0.9% 1,000 ML IV SCH (14:29)
[2020-10-06] MEDS: carBAMazepine 100 MG TAB.ER.12H PO SCH (17:13)
[2020-10-06] MEDS: DONEPEZIL 10 MG TAB PO SCH (21:01)
[2020-10-06] MEDS: polyethylene glycoL 3350 17 GM POWD.PACK PO SCH (21:01)
[2020-10-06] MEDS: ATORVASTATIN 10 MG TAB PO SCH (21:01)
[2020-10-06] MEDS ORDERED: METOCLOPRAMIDE 5 MG/ML 2 ML VIAL IVP STA (22:14)
[2020-10-07] MEDS: HYDROcodone/APAP 7.5-325MG 1 EACH TAB PO PRN (03:36)
[2020-10-07] MEDS: carBAMazepine 100 MG TAB.ER.12H PO SCH ×2 (06:59→17:12)
[2020-10-07] MEDS: SERTRALINE 50 MG TAB PO SCH (06:59)
[2020-10-07] MEDS: LEVOFLOXACIN 250 MG TAB PO SCH (06:59)
[2020-10-07] MEDS: APIXABAN 5 MG TAB PO SCH ×2 (06:59→17:12)
[2020-10-07] MEDS: SODIUM CHLORIDE 0.9% 1,000 ML IV SCH (07:00)
[2020-10-07 09:56] LABS: Basophils # (A) 0.03 X 10*3/uL (0.00-0.10); Basophils % (A) 0.3 %; Eosinophils # (A) 0.04 X 10*3/uL (0.04-0.35); Eosinophils % (A) 0.4 %; HGB 8.4 g/dL (12.0-15.0); Lymphocytes # (A) 1.18 X 10*3/uL (0.90-5.00); Lymphocytes % (A) 12.2 %; MCH 31.6 pg (27.0-32.0); MCHC 32.3 g/dL (32.0-37.0); MCV 97.7 fL (80.0-97.0); Mean Platelet Volume 8.8 fL (9.5-12.2); Monocytes # (A) 1.11 X 10*3/uL (0.20-1.00); Monocytes % (A) 11.5 %; Neutrophils # (A) 7.21 X 10*3/uL (1.80-7.70); Neutrophils % (A) 74.5 %; Platelet Count 329 X 10*3/uL (140-440); RBC 2.66 X 10*6/uL (4.10-5.20); RDW 13.5 % (11.5-14.5); WBC 9.68 X 10*3/uL (4.50-10.00)
--- NOTE | 2020-10-07 10:21 | P.PN ---
Subjective Progress Note Date: 10/07/20 Feels okay, up in chair. Appetite marginal. Family at bedside. No chest pain no abdominal pain no vomiting Objective - Vital Signs Vital signs: Vital Signs Temp 98.5 F 10/07/20 07:57 Pulse 80 10/07/20 07:57 Resp 17 10/07/20 07:57 BP 134/82 10/07/20 07:57 Pulse Ox 97 10/07/20 07:57 Intake & Output 10/06/20 10/07/20 10/07/20 18:59 06:59 18:59 Intake Total 105 Balance 105 Weight 58.97 kg Intake: Oral 105 Other: Voiding Method Diaper # Voids 2 2 - Exam Constitutional: No acute distress, conversant, pleasant Eyes: Anicteric sclerae, moist conjunctiva ENMT: NC/AT Neck:Supple, FROM Lungs: Clear to auscultation, Clear to percussion, Normal respiratory effort, no accessory muscle use Cardiovascular: Heart regular in rate and rhythm, No murmurs, gallops, or rubs no peripheral edema Abdominal: Soft Nontender, non distended, no guarding, Skin: Normal temperature, tone, texture, turgor, No induration Extremities:No digital cyanosis No clubbing, Pedal pulses intact and symmetrical Radial pulses intact and symmetrical Normal gait and station, No calf tenderness Psychiatric: Alert and oriented to person, place and time, Appropriate affect Intact judgement Neuro: Muscles Strength 5/5 in all 4 extremities, Sensation to light touch grossly present throughout, Cranial nerves II-XII grossly intact. No focal senso ry deficits - Labs CBC & Chem 7: 10/07/20 05:56 10/06/20 18:24 Labs: Abnormal Lab Results - Last 24 Hours (Table) 10/06/20 10/06/20 10/07/20 Range/Units 07:20 18:24 05:56 RBC 2.94 L 2.66 L (4.10-5.20) X 10*6/uL Hgb 9.1 L 8.4 L (12.0-15.0) g/dL Hct 28.3 L 26.0 L (37.2-46.3) % MCV 97.7 H (80.0-97.0) fL MPV 8.9 L 8.8 L (9.5-12.2) fL Immature Gran # 0.11 H (0.00-0.04) X 10*3/uL Monocytes # 1.11 H (0.20-1.00) X 10*3/uL Sodium 126 L (137-145) mmol/L Assessment and Plan Plan: Assessment/plan: 1. Hyponatremia hypovolemic. Patient is also on Tegretol, Zoloft as well as nonsteroidals which can induce SIADH, on normal saline a 50 mL per hour. 1.2 L fluid restriction. Serum sodium improved from 121 up to 126 2. Benign hypertension. Controlled. 3. Poor oral intake: Supportive care, dietary input appreciated 4. UTI, acute unspecified organism continue Levaquin 5. Depression: Continue sertraline 6. Dementia unspecified type without behavioral changes: Continue Aricept Disposition: Pending clinical progression discussed with the patient and her daughter at bedside. Patient's daughter is not sure about being discharged home with home health versus going back to rehab.
[2020-10-07 10:22] LABS: African American GFR (CKD) 100.2 (60.0-200.0); Albumin/Globulin Ratio 1.58 (1.60-3.17); Anion Gap 8.3 mmol/L (4.00-12.00); Calcium 8.9 mg/dL (8.7-10.3); Carbon Dioxide 25.7 mmol/L (21.6-31.8); Globulin 1.9 g/dL (1.6-3.3); Magnesium 1.5 mg/dL (1.5-2.4); Non-African American GFR(CKD) 86.4 (60.0-200.0); Potassium 4.3 mmol/L (3.5-5.5); Total Bilirubin 0.2 mg/dL (0.2-1.2); Total Protein 4.9 g/dL (6.2-8.2)
--- NOTE | 2020-10-07 10:38 | P.PN ---
Subjective Patient is seen in follow-up for hyponatremia. Sodium level gradually improving. Oral intake is also getting better. Maintained on normal saline at 50 mL an hour. No vomiting or diarrhea. Vital signs are stable. General: The patient appeared well nourished and normally developed. HEENT: Head exam is unremarkable. Neck is without jugular venous distension. LUNGS: Breath sounds decreased. HEART: Rate and Rhythm are regular. ABDOMEN: Soft, no distention. EXTREMITITES: No edema. Objective - Vital Signs Vital signs: Vital Signs Temp 98.5 F 10/07/20 07:57 Pulse 80 10/07/20 07:57 Resp 17 10/07/20 07:57 BP 134/82 10/07/20 07:57 Pulse Ox 97 10/07/20 07:57 Intake & Output 10/06/20 10/07/20 10/07/20 18:59 06:59 18:59 Intake Total 105 Balance 105 Weight 58.97 kg Intake: Oral 105 Other: Voiding Method Diaper # Voids 2 2 - Labs CBC & Chem 7: 10/07/20 05:56 10/07/20 05:56 Labs: Abnormal Lab Results - Last 24 Hours (Table) 10/06/20 10/06/20 10/07/20 Range/Units 07:20 18:24 05:56 RBC 2.94 L 2.66 L (4.10-5.20) X 10*6/uL Hgb 9.1 L 8.4 L (12.0-15.0) g/dL Hct 28.3 L 26.0 L (37.2-46.3) % MCV 97.7 H (80.0-97.0) fL MPV 8.9 L 8.8 L (9.5-12.2) fL Immature Gran # 0.11 H (0.00-0.04) X 10*3/uL Monocytes # 1.11 H (0.20-1.00) X 10*3/uL Sodium 126 L (137-145) mmol/L Chloride (96-109) mmol/L Creatinine (0.6-1.5) mg/dL BUN/Creatinine Ratio (12.00-20.00) Ratio Total Protein (6.2-8.2) g/dL Albumin (3.80-4.90) g/dL Albumin/Globulin Ratio (1.60-3.17) g/dL 10/07/20 Range/Units 05:56 RBC (4.10-5.20) X 10*6/uL Hgb (12.0-15.0) g/dL Hct (37.2-46.3) % MCV (80.0-97.0) fL MPV (9.5-12.2) fL Immature Gran # (0.00-0.04) X 10*3/uL Monocytes # (0.20-1.00) X 10*3/uL Sodium 129 L (137-145) mmol/L Chloride 95 L (96-109) mmol/L Creatinine 0.5 L (0.6-1.5) mg/dL BUN/Creatinine Ratio 22.00 H (12.00-20.00) Ratio Total Protein 4.9 L (6.2-8.2) g/dL Albumin 3.00 L (3.80-4.90) g/dL Albumin/Globulin Ratio 1.58 L (1.60-3.17) g/dL Assessment and Plan Plan: Assessment: 1. Hyponatremia, hypovolemic. Also component of poor solute intake. Patient is also on Tegretol, Zoloft as well as nonsteroidals which can induce SIADH. S odium level 129 this morning. TSH normal. 2. Benign hypertension. Controlled. 3. Hypomagnesemia from poor intake. Plan: Maintain normal saline. 1200 mL fluid restriction. Encourage oral intake, particularly protein. Added ensure 3 times a day. Replace magnesium. Repeat electrolytes in the morning.
[2020-10-07] MEDS: MAGNESIUM SULFATE-D5W PMX 1 GM in DEXTROSE/WATER 1 100ML.BAG IVPB SCH ×2 (11:17→12:18)
[2020-10-07] MEDS: ONDANSETRON 4 MG/2 ML VIAL IVP PRN (21:26)
[2020-10-07] MEDS: ATORVASTATIN 10 MG TAB PO SCH (21:39)
[2020-10-07] MEDS: DONEPEZIL 10 MG TAB PO SCH (21:39)
[2020-10-08] MEDS: polyethylene glycoL 3350 17 GM POWD.PACK PO SCH ×2 (07:28→08:21)
[2020-10-08] MEDS: SERTRALINE 50 MG TAB PO SCH (08:21)
[2020-10-08] MEDS: carBAMazepine 100 MG TAB.ER.12H PO SCH (08:21)
[2020-10-08] MEDS: LEVOFLOXACIN 250 MG TAB PO SCH (08:21)
[2020-10-08] MEDS: APIXABAN 5 MG TAB PO SCH ×2 (08:21→18:13)
[2020-10-08] MEDS: HYDROcodone/APAP 7.5-325MG 1 EACH TAB PO PRN ×2 (08:22→14:23)
[2020-10-08] MEDS: SODIUM CHLORIDE 0.9% 1,000 ML IV SCH (08:32)
--- NOTE | 2020-10-08 09:50 | P.DS ---
Providers Date of admission: 10/05/20 21:30 Expected date of discharge: 10/08/20 Attending physician: Dhara Ferrer MD Consults: 10/06/20 01:16 Consult Physician Routine Consulting Provider: Jozef Goodman Consult Reason/Comments: HypoNa Do you want consulting provider notified?: Yes Primary care physician: Rashi Inman MD Hospital Course: HPI: The patient is an 89-year-old female with a PMH of dementia, history of DVT on Eliquis, hypertension, hyperlipidemia, hiatal hernia, COPD, and GERD who was sent in from [facility] as a direct admission. The patient was sent to [facility] from [facility] rehab facility earlier today due to complaints of nausea and vomiting. Of note, the patient suffered a left hip fracture on 09/11 and underwent repair at [facility] and was subsequently transferred to that facility for rehab. The history is provided by the daughter at the bedside (POA). She reports that the facility notified her earlier today that her mother appeared to be ill and had a single episode of nausea and vomiting, nonbloody, for which she was sent to the emergency room. When patient is asked how she is doing, she repeatedly says "I don't know". The daughter states that her mother at baseline is only oriented to self and that her dementia has been gradually progressing over the past several years. The patient denied chest discomfort, shortness of breath, abdominal pain, diarrhea. Denied cough, fever, neck pain. The patient underwent an extensive evaluation in the emergency room which was all reviewed with EKG showing sinus rhythm at 78 bpm with LVH. Laboratory evaluation revealed a WBC count 13.6, hemoglobin 10.7, platelets 45, CK-MB 0.94, CPK 25, sodium 123, potassium 4.2, chloride 83, CO2 30, glucose 108, BUN 21, creatinine 0.6, calcium 8.8, alk phos 159, total bilirubin 0.2, total protein 6.9, albumin 3.7, INR 1.07, magnesium 1.9, phosphorus 3.9, proBNP 31, troponin I 0.015, and UA showing 30-50 WBCs, 1+ bacteria, negative nitrate, 3+ leukocyte esterase. CT abdomen and pelvis with IV contrast revealed fibrotic changes at the lung bases, stable along with colonic diverticulosis without diverticulitis. 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 Chest x-ray was also unremarkable. The patient was given Levaquin IV and was transferred to [facility] for further management. Discussed the case with the [facility] emergency room physician Dr. Inman. Hospital course and treatment: Patient was admitted to the hospital with hyponatremia, felt to be hypovolemia decreased oral intake and possibly secondary to medications. She is on Tegretol Zoloft and NSAIDs as well as HCTZ. She was placed on normal saline and serum sodium continued to improve from 121 upon admission up to 129. She has poor oral intake and poor appetite. Ensure was added. She was treated with Levaquin for acute UTI but remained afebrile with no leukocytoses. She also has some oral thrush and nystatin was added to her medications. Treatment plan was discussed with the patient and her family at bedside. Patient and her daughter refused rehab and would rather go home with home health. We will discharge patient home with home health, we will discontinue HCTZ secondary to hyponatremia. Diagnoses upon discharge: 1. Hyponatremia, hypovolemic 2. Essential hypertension at 70. Hypomagnesemia 4. Acute UTI unspecified organism or location 5. Depression 6. Dementia unspecified type without behavioral changes necessary. 7. Poor oral intake and poor appetite Plan - Discharge Summary Discharge Rx Participant: No New Discharge Prescriptions: New lisinopriL 20 mg PO DAILY 30 Days #30 tablet Continue Atorvastatin [Lipitor] 10 mg PO HS Sertraline [Zoloft] 100 mg PO DAILY@0700 amLODIPine [Norvasc] 5 mg PO DAILY@0700 Donepezil [Aricept] 10 mg PO HS Cranberry Fruit Extract [Cranberry] 500 mg PO DAILY@0700 Omeprazole 40 mg PO DAILY carBAMazepine [TEGretol XR] 100 mg PO BID@0700,1900 HYDROcodone/APAP 7.5-325MG [[place] 7.5-325] 1 tab PO Q6HR PRN PRN Reason: pain Multivitamins, Thera [Multivitamin (formulary)] 1 tab PO DAILY@0700 Famotidine [Pepcid] 20 mg PO BID #0 Saliva Stimulant Agents Comb.3 [Biotene Moisturizing Mouth] 3 spray MUCOUS MEM Q6H PRN PRN Reason: Dry Mouth Apixaban [Eliquis] 5 mg PO BID@0700,1700 Sertraline [Zoloft] 50 mg PO DAILY@0700 Calcium Carbonate/Vitamin D3 [Calcium 600 mg-Vit D3 10 mcg (400 Unit)] 1 tab PO DAILY@0700 Sennosides [Senna] 17.2 mg PO DAILY PRN PRN Reason: Constipation Discontinued Lisinopril-Hctz 20-12.5 mg [Zestoretic 20-12.5] 1 tab PO DAILY@0700 Discharge Medication List Atorvastatin [Lipitor] 10 mg PO HS 06/08/17 [History] Sertraline [Zoloft] 100 mg PO DAILY@0700 10/10/17 [History] Donepezil [Aricept] 10 mg PO HS 10/21/18 [History] amLODIPine [Norvasc] 5 mg PO DAILY@0700 10/21/18 [History] Cranberry Fruit Extract [Cranberry] 500 mg PO DAILY@0700 06/29/20 [History] Omeprazole 40 mg PO DAILY 06/29/20 [History] carBAMazepine [TEGretol XR] 100 mg PO BID@0700,1900 06/29/20 [History] Famotidine [Pepcid] 20 mg PO BID #0 09/14/20 [Rx] Apixaban [Eliquis] 5 mg PO BID@0700,1700 10/06/20 [History] Calcium Carbonate/Vitamin D3 [Calcium 600 mg-Vit D3 10 mcg (400 Unit)] 1 tab PO DAILY@0700 10/06/20 [History] HYDROcodone/APAP 7.5-325MG [[place] 7.5-325] 1 tab PO Q6HR PRN 10/06/20 [History] Multivitamins, Thera [Multivitamin (formulary)] 1 tab PO DAILY@0700 10/06/20 [History] Saliva Stimulant Agents Comb.3 [Biotene Moisturizing Mouth] 3 spray MUCOUS MEM Q6H PRN 10/06/20 [History] Sennosides [Senna] 17.2 mg PO DAILY PRN 10/06/20 [History] Sertraline [Zoloft] 50 mg PO DAILY@0700 10/06/20 [History] lisinopriL 20 mg PO DAILY 30 Days #30 tablet 10/08/20 [Rx] Follow up Appointment(s)/Referral(s): [facility],Home Care [NON-STAFF] - Patient Instructions/Handouts: Urinary Tract Infection in Women (DC), Hyponatremia (DC) Activity/Diet/Wound Care/Special Instructions: *RN to call [facility] for discharge for an ambulance ride home - [phone]. The form is on the patient's chart. Discharge/Stand Alone Forms: Help In The Home Discharge Disposition: HOME WITH HOME HEALTH SERVICES
[2020-10-08 10:37] LABS: ALT 12 U/L (4-34); AST 24 U/L (14-36); African American GFR (CKD) >90 (>60 ml/min/1.73 sqM); Albumin 2.7 g/dL (3.5-5.0); Albumin/Globulin Ratio 1.1; Alkaline Phosphatase 109 U/L (38-126); Anion Gap 8 mmol/L; Blood Urea Nitrogen 6 mg/dL (7-17); Calcium 8.1 mg/dL (8.4-10.2); Carbon Dioxide 23 mmol/L (22-30); Chloride 96 mmol/L (98-107); Globulin 2.5 g/dL; Glucose 86 mg/dL (74-99); Non-African American GFR(CKD) 87 (>60 ml/min/1.73 sqM); Potassium 4.7 mmol/L (3.5-5.1); Sodium 127 mmol/L (137-145); Total Bilirubin 0.3 mg/dL (0.2-1.3); Total Protein 5.2 g/dL (6.3-8.2)
[2020-10-08 10:44] LABS: Basophils % (A) 0 %; Eosinophils # (A) 0.1 k/uL (0-0.7); Eosinophils % (A) 1 %; HCT 29.2 % (34.0-46.0); Hypochromasia Slight; Lymphocytes # (A) 0.9 k/uL (1.0-4.8); Lymphocytes % (A) 14 %; MCHC 30.8 g/dL (31.0-37.0); MCV 100.6 fL (80.0-100.0); Macrocytosis Slight; Mean Platelet Volume 6.5; Monocytes # (A) 0.4 k/uL (0-1.0); Monocytes % (A) 6 %; Neutrophils % (A) 76 %; Platelet Count 373 k/uL (150-450); RBC 2.91 m/uL (3.80-5.40); RDW 13.6 % (11.5-15.5); WBC 6.6 k/uL (3.8-10.6)
--- NOTE | 2020-10-08 10:58 | P.PN ---
Subjective Patient is seen in follow-up for hyponatremia. Sodium level 127 today. Oral intake is poor. [id number] present at bedside. Maintained on normal saline at 50 mL an hour. No vomiting or diarrhea. Vital signs are stable. General: The patient appeared well nourished and normally developed. HEENT: Head exam is unremarkable. Neck is without jugular venous distension. LUNGS: Breath sounds decreased. HEART: Rate and Rhythm are regular. ABDOMEN: Soft, no distention. EXTREMITITES: No edema. Objective - Vital Signs Vital signs: Vital Signs Temp 98.2 F 10/08/20 07:37 Pulse 69 10/08/20 07:37 Resp 18 10/08/20 07:37 BP 128/65 10/08/20 07:37 Pulse Ox 96 10/08/20 07:37 Intake & Output 10/07/20 10/08/20 10/08/20 18:59 06:59 18:59 Intake Total 400 329 Output Total 100 Balance 300 329 Intake: Intake, IV Titration 400 Amount Sodium Chloride 0.9% 1, 400 000 ml @ 50 mls/hr IV . Q20H [facility] Rx#:[id number] Oral 329 Output: Urine 100 Other: Voiding Method Bedside Commode Bedside Commode Diaper Diaper # Voids 2 - Labs CBC & Chem 7: 10/08/20 07:57 10/08/20 07:57 Labs: Abnormal Lab Results - Last 24 Hours (Table) 10/08/20 10/08/20 Range/Units 07:57 07:57 RBC 2.91 L (3.80-5.40) m/uL Hgb 9.0 L (11.4-16.0) gm/dL Hct 29.2 L (34.0-46.0) % MCV 100.6 H (80.0-100.0) fL MCHC 30.8 L (31.0-37.0) g/dL Lymphocytes # 0.9 L (1.0-4.8) k/uL Sodium 127 L (137-145) mmol/L Chloride 96 L (98-107) mmol/L BUN 6 L (7-17) mg/dL Creatinine 0.49 L (0.52-1.04) mg/dL Calcium 8.1 L (8.4-10.2) mg/dL Total Protein 5.2 L (6.3-8.2) g/dL Albumin 2.7 L (3.5-5.0) g/dL Assessment and Plan Plan: Assessment: 1. Hyponatremia, hypovolemic. Also component of poor solute intake. Patient is also on Tegretol, Zoloft as well as nonsteroidals which can induce SIADH. Sodium level 127 this morning. TSH normal. 2. Benign hypertension. Controlled. 3. Hypomagnesemia from poor intake. Replaced. Plan: Hep-Lock IV fluids. 1200 mL fluid restriction. Encourage oral intake, particularly protein. Added ensure 3 times a day. Add sodium chloride tablet. Repeat electrolytes in the morning. Urine studies not done. I will reorder them again. Urine studies not done. I will reorder them.
[2020-10-08] MEDS: SODIUM CHLORIDE TAB 1 GM TAB PO SCH ×2 (14:23→23:37)
[2020-10-08] MEDS: NYSTATIN 100,000 UNIT/ML SUSP 500,000 UNIT/5 ML CUP PO SCH ×3 (16:43→23:36)
[2020-10-08] MEDS: ONDANSETRON 4 MG/2 ML VIAL IVP PRN (18:21)
--- NOTE | 2020-10-08 18:37 | P.PN ---
Subjective Progress Note Date: 10/08/20 Feels okay, up in chair. Appetite marginal. No chest pain no abdominal pain no vomiting. still has nausea Objective - Vital Signs Vital signs: Vital Signs Temp 97.7 F 10/08/20 14:21 Pulse 70 10/08/20 14:21 Resp 18 10/08/20 14:21 BP 139/81 10/08/20 14:21 Pulse Ox 96 10/08/20 14:21 Intake & Output 10/07/20 10/08/20 10/08/20 18:59 06:59 18:59 Intake Total 400 329 Output Total 100 Balance 300 329 Weight 58.97 kg Intake: Intake, IV Titration 400 Amount Sodium Chloride 0.9% 1, 400 000 ml @ 50 mls/hr IV . Q20H [facility] Rx#:[id number] Oral 329 Output: Urine 100 Other: Voiding Method Bedside Commode Bedside Commode Diaper Diaper # Voids 2 - Exam Constitutional: No acute distress, conversant, pleasant Eyes: Anicteric sclerae, moist conjunctiva ENMT: NC/AT Neck:Supple, FROM Lungs: Clear to auscultation, Clear to percussion, Normal respiratory effort, no accessory muscle use Cardiovascular: Heart regular in rate and rhythm, No murmurs, gallops, or rubs no peripheral edema Abdominal: Soft Nontender, non distended, no guarding, Skin: Normal temperature, tone, texture, turgor, No induration Extremities:No digital cyanosis No clubbing Psychiatric: Alert and oriented to person, place and time, Appropriate affect Intact judgement Neuro: Muscles Strength 5/5 in all 4 extremities, Cranial nerves II-XII grossly intact. No focal sensory deficits - Labs CBC & Chem 7: 10/08/20 07:57 10/08/20 07:57 Labs: Abnormal Lab Results - Last 24 Hours (Table) 10/08/20 10/08/20 10/08/20 Range/Units 07:57 07:57 07:57 RBC 2.91 L (3.80-5.40) m/uL Hgb 9.0 L (11.4-16.0) gm/dL Hct 29.2 L (34.0-46.0) % MCV 100.6 H (80.0-100.0) fL MCHC 30.8 L (31.0-37.0) g/dL Lymphocytes # 0.9 L (1.0-4.8) k/uL Sodium 127 L (137-145) mmol/L Chloride 96 L (98-107) mmol/L BUN 6 L (7-17) mg/dL Creatinine 0.49 L (0.52-1.04) mg/dL Osmolality 261 L (280-301) mosm/kg Calcium 8.1 L (8.4-10.2) mg/dL Total Protein 5.2 L (6.3-8.2) g/dL Albumin 2.7 L (3.5-5.0) g/dL Assessment and Plan Plan: Assessment/plan: 1. Hyponatremia hypovolemic. Patient is also on Tegretol, Zoloft as well as no nsteroidals which can induce SIADH, on normal saline a 50 mL per hour. 1.2 L fluid restriction. Serum sodium improved from 121 up to 127 2. Benign hypertension. Controlled. 3. Poor oral intake: Supportive care, dietary input appreciated 4. UTI, acute unspecified organism continue Levaquin 5. Depression: Continue sertraline 6. Dementia unspecified type without behavioral changes: Continue Aricept Disposition: Pending clinical progression. Family wanted patient to stay in the hospital 1 more day to make sure nausea is better
[2020-10-08] MEDS: ATORVASTATIN 10 MG TAB PO SCH (23:36)
[2020-10-08] MEDS: DONEPEZIL 10 MG TAB PO SCH (23:36)
[2020-10-09] MEDS ORDERED: NAPROXEN 250 MG TAB PO STA (00:11)
[2020-10-09] MEDS ORDERED: METOCLOPRAMIDE 5 MG/ML 2 ML VIAL IVP STA (00:12)
[2020-10-09] MEDS ORDERED: METOCLOPRAMIDE ORAL SOLN 10 MG/10 ML CUP PO PRN (01:14)
[2020-10-09] MEDS: carBAMazepine 100 MG TAB.ER.12H PO SCH ×3 (02:04→19:03)
[2020-10-09] MEDS: PANTOPRAZOLE 40 MG TABLET PO SCH ×2 (02:05→08:20)
[2020-10-09] MEDS: guaiFENesin SYRUP 100MG/5ML 200 MG/10 ML CUP PO SCH ×4 (02:40→21:09)
[2020-10-09] MEDS: HYDROcodone/APAP 7.5-325MG 1 EACH TAB PO PRN (04:17)
--- NOTE | 2020-10-09 07:34 | XR ---
EXAMINATION TYPE: XR abdomen 1V DATE OF EXAM: 10/09/2020 Comparison: Correlation CT 09/11/2020 Clinical History: 89-year-old female repeated vomiting Findings: There are reticular and patchy changes in the visualized lower lungs. Prominent small bowel air with loops measuring up to 3.2 cm. Sutures along the anterior lower abdomen /pelvis. Coils from prior left inguinal/left lower quadrant measurement here. Rectal air is present a nd otherwise minimal scattered air in the right and left sides of the abdomen. Supine imaging limited for assessment of free air. Left hip hemiarthroplasty. Degenerated levoconvex scoliosis. Impression: 1. 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 Clinically correlate. 2. Numerous air-filled and borderline to mildly dilated small bowel loops throughout the abdomen shirin uring up to 3.2 cm. Some colonic air is present at this time. Overall nonspecific bowel gas pattern a t this time. Findings could represent a generalized ileus or enteritis or early small bowel obstructi on.
[2020-10-09] MEDS: APIXABAN 5 MG TAB PO SCH ×2 (08:20→17:44)
[2020-10-09] MEDS: polyethylene glycoL 3350 17 GM POWD.PACK PO SCH (08:20)
[2020-10-09] MEDS: SERTRALINE 50 MG TAB PO SCH (08:20)
[2020-10-09] MEDS: LEVOFLOXACIN 250 MG TAB PO SCH (08:24)
[2020-10-09] MEDS: NYSTATIN 100,000 UNIT/ML SUSP 500,000 UNIT/5 ML CUP PO SCH ×4 (08:25→21:09)
[2020-10-09] MEDS: SODIUM CHLORIDE TAB 1 GM TAB PO SCH ×2 (08:25→21:09)
--- NOTE | 2020-10-09 08:54 | P.PN ---
Subjective Patient is seen in follow-up for hyponatremia. Sodium level 127 as of yesterday. Oral intake remains poor. Off IVFs. No vomiting or diarrhea. Vital signs are stable. General: The patient appeared well nourished and normally developed. HEENT: Head exam is unremarkable. Neck is without jugular venous distension. LUNGS: Breath sounds decreased. HEART: Rate and Rhythm are regular. ABDOMEN: Soft, no distention. EXTREMITITES: No edema. Objective - Vital Signs Vital signs: Vital Signs Temp 98.4 F 10/09/20 07:50 Pulse 72 10/09/20 07:50 Resp 18 10/09/20 07:50 BP 94/45 10/09/20 07:50 Pulse Ox 95 10/09/20 07:50 Intake & Output 10/08/20 10/09/20 10/09/20 18:59 06:59 18:59 Weight 58.97 kg Other: Voiding Method Bedside Commode Bedside Commode Diaper Diaper # Voids 3 2 - Labs CBC & Chem 7: 10/08/20 07:57 10/08/20 07:57 Labs: Abnormal Lab Results - Last 24 Hours (Table) 10/08/20 10/08/20 10/08/20 Range/Units 07:57 07:57 07:57 RBC 2.91 L (3.80-5.40) m/uL Hgb 9.0 L (11.4-16.0) gm/dL Hct 29.2 L (34.0-46.0) % MCV 100.6 H (80.0-100.0) fL MCHC 30.8 L (31.0-37.0) g/dL Lymphocytes # 0.9 L (1.0-4.8) k/uL Sodium 127 L (137-145) mmol/L Chloride 96 L (98-107) mmol/L BUN 6 L (7-17) mg/dL Creatinine 0.49 L (0.52-1.04) mg/dL Osmolality 261 L (280-301) mosm/kg Calcium 8.1 L (8.4-10.2) mg/dL Total Protein 5.2 L (6.3-8.2) g/dL Albumin 2.7 L (3.5-5.0) g/dL Assessment and Plan Plan: Assessment: 1. Hyponatremia, hypovolemic. Also component of poor solute intake. Patient is also on Tegretol, Zoloft as well as nonsteroidals which can induce SIADH. Sodium level 127 yesterday. TSH normal. Urine osmolality 179; urine sodium 38. 2. Benign hypertension. Controlled. 3. Hypomagnesemia from poor intake. Replaced. Plan: Off IVFs. 1200 mL fluid restriction. Encourage oral intake, particularly protein. Added ensure 3 times a day. Maintian sodium chloride tablet.
[2020-10-09 12:03] LABS: African American GFR (CKD) 107.8 (60.0-200.0); Anion Gap 6.7 mmol/L (4.00-12.00); BUN/Creat Ratio 17.5 Ratio (12.00-20.00); Calcium 8.2 mg/dL (8.7-10.3); Carbon Dioxide 27.3 mmol/L (21.6-31.8); Magnesium 1.8 mg/dL (1.5-2.4); Potassium 4.6 mmol/L (3.5-5.5)
[2020-10-09] MEDS ORDERED: DRY MOUTH SPRAY 44.3 SPRAY/44.3 ML SPRAY MUCOUS MEM PRN (16:17)
[2020-10-09] MEDS ORDERED: SENNOSIDES 8.6 MG TAB PO PRN (16:17)
--- NOTE | 2020-10-09 16:19 | P.PN ---
Subjective Progress Note Date: 10/09/20 Pt still feels weak and nauseous. Hasn't had BM in 2-3 days. Minimal diet, no appetite. Objective - Vital Signs Vital signs: Vital Signs Temp 98.1 F 10/09/20 14:38 Pulse 76 10/09/20 14:38 Resp 17 10/09/20 14:38 BP 118/69 10/09/20 14:38 Pulse Ox 96 10/09/20 14:38 Intake & Output 10/08/20 10/09/20 10/09/20 18:59 06:59 18:59 Weight 58.97 kg Other: Voiding Method Bedside Commode Bedside Commode Bedside Commode Diaper Diaper Diaper # Voids 3 2 - Exam Gen: awake, alert HEENT: normocephalic, atraumatic, good hearing acuity, dry mucous membranes Resp: good air exchange, breathing comfortably with no accessory muscle use, clear to auscultation bilaterally CVS: good distal perfusion x 4, regular rate and rhythm without murmurs GI: Tender to palpation the left lower quadrant, right lower quadrant : + SPT, no CVAT, santana catheter not present MSK: no pitting edema, no clubbing Neuro: non-focal, moving all extremities Psych: cooperative, euthymic mood - Labs CBC & Chem 7: 10/08/20 07:57 10/09/20 06:38 Labs: Abnormal Lab Results - Last 24 Hours (Table) 10/09/20 Range/Units 06:38 Sodium 132 L (135-145) mmol/L BUN 7.0 L (9.0-27.0) mg/dL Creatinine 0.4 L (0.6-1.5) mg/dL Calcium 8.2 L (8.7-10.3) mg/dL Assessment and Plan Assessment: Hyponatremia, SIADH versus hypovolemic Abdominal pain: Early SBO/ileus versus gastroenteritis -Diet as tolerated -Bowel regimen, nausea control -Pain control -Fluid restriction to 1200 mL -Nephrology consult, appreciate recommendations: Started on Salt Tab on 10/08 -If no improvement in symptoms, consideration of NG tube -If no improvement in symptoms, repeat x-ray of the abdomen UTI, complicated -Started on levofloxacin, will continue for a total of 5-7 day course, last a 10/10-6/15 -Repeat UA 10/10 Depression Dementia History of DVT Hypertension Hyperlipidemia -Continue home Zoloft, donepezil -Continue home Tegretol -Continue home Eliquis -Continue home atorvastatin -Holding home amlodipine DVT prophylaxis covered with Eliquis Patient is a no code
[2020-10-09] MEDS: DONEPEZIL 10 MG TAB PO SCH (21:09)
[2020-10-09] MEDS: ATORVASTATIN 10 MG TAB PO SCH (21:09)
[2020-10-09] MEDS ORDERED: METOCLOPRAMIDE 5 MG TAB PO STA (22:36)
[2020-10-10 02:31] VITALS: RESP 18
[2020-10-10] MEDS: HYDROcodone/APAP 7.5-325MG 1 EACH TAB PO PRN (03:08)
[2020-10-10] MEDS ORDERED: CALCIUM CARB-VIT D 500 MG-5 MCG TAB PO SCH (07:00)
[2020-10-10] MEDS ORDERED: SERTRALINE 50 MG TAB PO SCH (07:00)
[2020-10-10] MEDS ORDERED: MULTIVITAMINS, THERA 1 EACH TAB PO SCH (07:00)
[2020-10-10] MEDS ORDERED: bisacodyL 10 MG SUPP RECTAL STA (07:51)
[2020-10-10] MEDS: PANTOPRAZOLE 40 MG TABLET PO SCH (08:36)
[2020-10-10] MEDS: LEVOFLOXACIN 250 MG TAB PO SCH (08:36)
[2020-10-10] MEDS: SODIUM CHLORIDE TAB 1 GM TAB PO SCH (08:36)
[2020-10-10] MEDS: APIXABAN 5 MG TAB PO SCH (08:37)
[2020-10-10] MEDS: carBAMazepine 100 MG TAB.ER.12H PO SCH (08:37)
--- NOTE | 2020-10-10 09:33 | P.PN ---
Subjective Patient is seen in follow-up for hyponatremia. Sodium level 132 as of yesterday. Oral intake remains poor. Off IVFs. No vomiting or diarrhea. Senait allen present at bedside. Vital signs are stable. General: The patient appeared well nourished and normally developed. HEENT: Head exam is unremarkable. Neck is without jugular venous distension. LUNGS: Breath sounds decreased. HEART: Rate and Rhythm are regular. ABDOMEN: Soft, no distention. EXTREMITITES: No edema. Objective - Vital Signs Vital signs: Vital Signs Temp 98.6 F 10/10/20 01:47 Pulse 65 10/10/20 01:47 Resp 18 10/10/20 01:47 BP 107/61 10/10/20 01:47 Pulse Ox 95 10/10/20 01:47 Intake & Output 10/09/20 10/10/20 10/10/20 18:59 06:59 18:59 Intake Total 50 Balance 50 Intake: Oral 50 Other: Voiding Method Bedside Commode Bedside Commode Diaper Diaper # Voids 2 1 - Labs CBC & Chem 7: 10/08/20 07:57 10/09/20 06:38 Labs: Abnormal Lab Results - Last 24 Hours (Table) 10/09/20 Range/Units 06:38 Sodium 132 L (135-145) mmol/L BUN 7.0 L (9.0-27.0) mg/dL Creatinine 0.4 L (0.6-1.5) mg/dL Calcium 8.2 L (8.7-10.3) mg/dL Assessment and Plan Plan: Assessment: 1. Hyponatremia, hypovolemic. Also component of poor solute intake. Patient is also on Tegretol, Zoloft as well as nonsteroidals which can induce SIADH. Sodium level 132 yesterday. TSH normal. Urine osmolality 179; urine sodium 38. 2. Benign hypertension. Controlled. 3. Hypomagnesemia from poor intake. Replaced. Plan: Off IVFs. 1200 mL fluid restriction. Encourage oral intake, particularly protein. Added ensure 3 times a day. Maintain sodium chloride tablet. No changes from nephrology standpoint today.
[2020-10-10 09:48] VITALS: BP 117/73; PULSE 72; TEMP 98.7
[2020-10-10] MEDS: guaiFENesin SYRUP 100MG/5ML 200 MG/10 ML CUP PO SCH (11:39)
[2020-10-10] MEDS: NYSTATIN 100,000 UNIT/ML SUSP 500,000 UNIT/5 ML CUP PO SCH (11:40)
[2020-10-10] MEDS: polyethylene glycoL 3350 17 GM POWD.PACK PO SCH (11:45)
[2020-10-10] MEDS: SERTRALINE 50 MG TAB PO SCH (11:56)
--- NOTE | 2020-10-10 12:12 | P.DS ---
Providers Date of admission: 10/05/20 21:30 Expected date of discharge: 10/10/20 Attending physician: Dhara Ferrer MD Consults: 10/06/20 01:16 Consult Physician Routine Consulting Provider: Jozef Goodman Consult Reason/Comments: HypoNa Do you want consulting provider notified?: Yes Primary care physician: Rashi Inman MD Hospital Course: HPI: The patient is an 89-year-old female with a PMH of dementia, history of DVT on Eliquis, hypertension, hyperlipidemia, hiatal hernia, COPD, and GERD who was sent in from [facility] as a direct admission. The patient was sent to [facility] from [facility] rehab facility earlier today due to complaints of nausea and vomiting. Of note, the patient suffered a left hip fracture on 09/11 and underwent repair at [facility] and was subsequently transferred to that facility for rehab. The history is provided by the daughter at the bedside (POA). She reports that the facility notified her earlier today that her mother appeared to be ill and had a single episode of nausea and vomiting, nonbloody, for which she was sent to the emergency room. When patient is asked how she is doing, she repeatedly says "I don't know". The daughter states that her mother at baseline is only oriented to self and that her dementia has been gradually progressing over the past several years. The patient denied chest discomfort, shortness of breath, abdominal pain, diarrhea. Denied cough, fever, neck pain. The patient underwent an extensive evaluation in the emergency room which was all reviewed with EKG showing sinus rhythm at 78 bpm with LVH. Laboratory evaluation revealed a WBC count 13.6, hemoglobin 10.7, platelets 45, CK-MB 0.94, CPK 25, sodium 123, potassium 4.2, chloride 83, CO2 30, glucose 108, BUN 21, creatinine 0.6, calcium 8.8, alk phos 159, total bilirubin 0.2, total protein 6.9, albumin 3.7, INR 1.07, magnesium 1.9, phosphorus 3.9, proBNP 31, troponin I 0.015, and UA showing 30-50 WBCs, 1+ bacteria, negative nitrate, 3+ leukocyte esterase. CT abdomen and pelvis with IV contrast revealed fibrotic changes at the lung bases, stable along with colonic diverticulosis without diverticulitis. 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 Chest x-ray was also unremarkable. The patient was given Levaquin IV and was transferred to [facility] for further management. Discussed the case with the [facility] emergency room physician Dr. Inman. Hospital Course: Hyponatremia, SIADH versus hypovolemic Abdominal pain: Early SBO/ileus versus gastroenteritis UTI, complicated Depression Dementia History of DVT Hypertension Hyperlipidemia Patient was noted to be hyponatremic on admission, started on fluid extraction of 1200 mL. She had poor appetite as well as limited bowel movements. X-ray of the abdomen showed dilated bowel loops consistent with early SBO/ileus versus gastroenteritis. She was seen in consultation with nephrology who recommended salt tablets, which did improve her sodium back to normal range. Regarding her diet and bowel movements, she never required an NG tube, however, did start to tolerate bland foods with decreased total nutritional intake, and was having bowel movements on the day of discharge. Incidentally, she was noted to have a UTI and was started on levofloxacin and completed a 5 day course by the day of discharge. During her hospitalization her blood pressure medications were held, however, all other home medications were resumed. On discharge, all medications were resumed including blood pressure medications with the addition of lisinopril and salt tablets. Patient was advised to follow-up with her general surgeon as well as nephrology and PCP. I spent 40 minutes coordinating this complex discharge. Assessment: Gen: awake, alert HEENT: normocephalic, atraumatic, good hearing acuity, dry mucous membranes Resp: good air exchange, breathing comfortably with no accessory muscle use, clear to auscultation bilaterally CVS: good distal perfusion x 4, regular rate and rhythm without murmurs GI: Tender to palpation the left lower quadrant, right lower quadrant improved on discharge; patient has a soft abdomen with no distention. : + SPT, no CVAT, santana catheter not present MSK: no pitting edema, no clubbing Neuro: non-focal, moving all extremities Psych: cooperative, euthymic mood Patient Condition at Discharge: Fair Plan - Discharge Summary Discharge Rx Participant: No New Discharge Prescriptions: New lisinopriL 20 mg PO DAILY 30 Days #30 tablet Ondansetron Odt [Zofran Odt] 4 mg PO Q6HR PRN 30 Days #30 tab PRN Reason: Nausea And Vomiting Sodium Chloride Tab 1 gm PO BID #30 tab Continue Atorvastatin [Lipitor] 10 mg PO HS Sertraline [Zoloft] 100 mg PO DAILY@0700 amLODIPine [Norvasc] 5 mg PO DAILY@0700 Donepezil [Aricept] 10 mg PO HS Cranberry Fruit Extract [Cranberry] 500 mg PO DAILY@0700 Omeprazole 40 mg PO DAILY carBAMazepine [TEGretol XR] 100 mg PO BID@0700,1900 HYDROcodone/APAP 7.5-325MG [Sellers 7.5-325] 1 tab PO Q6HR PRN PRN Reason: pain Multivitamins, Thera [Multivitamin (formulary)] 1 tab PO DAILY@0700 Famotidine [Pepcid] 20 mg PO BID #0 Saliva Stimulant Agents Comb.3 [Biotene Moisturizing Mouth] 3 spray MUCOUS MEM Q6H PRN PRN Reason: Dry Mouth Apixaban [Eliquis] 5 mg PO BID@0700,1700 Sertraline [Zoloft] 50 mg PO DAILY@0700 Calcium Carbonate/Vitamin D3 [Calcium 600 mg-Vit D3 10 mcg (400 Unit)] 1 tab PO DAILY@0700 Sennosides [Senna] 17.2 mg PO DAILY PRN PRN Reason: Constipation Discontinued Lisinopril-Hctz 20-12.5 mg [Zestoretic 20-12.5] 1 tab PO DAILY@0700 Discharge Medication List Atorvastatin [Lipitor] 10 mg PO HS 06/08/17 [History] Sertraline [Zoloft] 100 mg PO DAILY@0700 10/10/17 [History] Donepezil [Aricept] 10 mg PO HS 10/21/18 [History] amLODIPine [Norvasc] 5 mg PO DAILY@0700 10/21/18 [History] Cranberry Fruit Extract [Cranberry] 500 mg PO DAILY@0700 06/29/20 [History] Omeprazole 40 mg PO DAILY 06/29/20 [History] carBAMazepine [TEGretol XR] 100 mg PO BID@0700,1900 06/29/20 [History] Famotidine [Pepcid] 20 mg PO BID #0 09/14/20 [Rx] Apixaban [Eliquis] 5 mg PO BID@0700,1700 10/06/20 [History] Calcium Carbonate/Vitamin D3 [Calcium 600 mg-Vit D3 10 mcg (400 Unit)] 1 tab PO DAILY@0700 10/06/20 [History] HYDROcodone/APAP 7.5-325MG [Sellers 7.5-325] 1 tab PO Q6HR PRN 10/06/20 [History] Multivitamins, Thera [Multivitamin (formulary)] 1 tab PO DAILY@0710/06/20 [History] Saliva Stimulant Agents Comb.3 [Biotene Moisturizing Mouth] 3 spray MUCOUS MEM Q6H PRN 10/06/20 [History] Sennosides [Senna] 17.2 mg PO DAILY PRN 10/06/20 [History] Sertraline [Zoloft] 50 mg PO DAILY@0710/06/20 [History] Ondansetron Odt [Zofran Odt] 4 mg PO Q6HR PRN 30 Days #30 tab 10/08/20 [Rx] lisinopriL 20 mg PO DAILY 30 Days #30 tablet 10/08/20 [Rx] Sodium Chloride Tab 1 gm PO BID #30 tab 10/10/20 [Rx] Follow up Appointment(s)/Referral(s): [facility] [NON-STAFF] - Maryuri Beltran [facility] [REFERRING] - 10/11/20 1:00 pm Patient Instructions/Handouts: Urinary Tract Infection in Women (DC), Hyponatremia (DC) Activity/Diet/Wound Care/Special Instructions: *RN to call [facility] for discharge for an ambulance ride home - [phone]. The form is on the patient's chart. Discharge/Stand Alone Forms: Help In The Home Discharge Disposition: HOME WITH HOME HEALTH SERVICES
== END 2020-10-10 14:50 | disposition home health service (06) | DRG 641 ==
LOC: 4SSUR 21:30
PROVIDERS: ADMIT Internal Medicine; ATTEND Internal Medicine
DX: E87.1 Hypo-osmolality and hyponatremia (principal); B37.0 Candidal stomatitis; N39.0 Urinary tract infection, site not specified; J84.9 Interstitial pulmonary disease, unspecified; Z20.822 Contact with and (suspected) exposure to COVID-19; E78.5 Hyperlipidemia, unspecified; E83.42 Hypomagnesemia; E86.1 Hypovolemia; F03.90 Unspecified dementia, unspecified severity, without behavioral disturbance, psychotic disturbance, mood disturbance, and anxiety; F32.9 Major depressive disorder, single episode, unspecified; I10 Essential (primary) hypertension; J44.9 Chronic obstructive pulmonary disease, unspecified; F41.9 Anxiety disorder, unspecified; K21.9 Gastro-esophageal reflux disease without esophagitis; R10.9 Unspecified abdominal pain; M41.9 Scoliosis, unspecified; K58.9 Irritable bowel syndrome, unspecified; M62.81 Muscle weakness (generalized); M06.9 Rheumatoid arthritis, unspecified; K57.30 Diverticulosis of large intestine without perforation or abscess without bleeding; Z79.01 Long term (current) use of anticoagulants; Z79.1 Long term (current) use of non-steroidal anti-inflammatories (NSAID); Z79.899 Other long term (current) drug therapy; Z86.73 Personal history of transient ischemic attack (TIA), and cerebral infarction without residual deficits; Z96.649 Presence of unspecified artificial hip joint; Z86.718 Personal history of other venous thrombosis and embolism; Z98.42 Cataract extraction status, left eye; Z96.642 Presence of left artificial hip joint; Z98.41 Cataract extraction status, right eye; Z96.1 Presence of intraocular lens; Z88.1 Allergy status to other antibiotic agents; Z88.2 Allergy status to sulfonamides; Z88.0 Allergy status to penicillin; Z85.828 Personal history of other malignant neoplasm of skin; Z87.19 Personal history of other diseases of the digestive system; Z87.81 Personal history of (healed) traumatic fracture
CPT/HCPCS: 74018; 80048; 80053; 83735; 83930; 83935; 84295; 84300; 84443; 85025; 85027